=== PATIENT | male | born 1955 | race Caucasian/White ===

== ENCOUNTER 2023-07-25 08:52 | Outpatient (AMB) | payer MEDICARE, MEDICAID, SELFPAY ==
--- NOTE | 2023-07-25 08:56 | MHC.OFFWIV ---
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
[2023-07-25 09:03] VITALS: BP 160/80; PULSE 82; O2SAT 98; BMI 31.6
--- NOTE | 2023-07-25 09:05 | A.OFFPC_ITS ---
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 Intake Note: pt is here for establish care, hx of high bp readings Residence Hall Director Required: No Allergies No Known Allergies Allergy (Verified 07/25/23 09:21) Medication List - Last Reconciled 07/25/23 by MAXWELL Jacobo amlodipine 5 mg PO DAILY atorvastatin 40 mg PO DAILY lisinopril 40 mg PO DAILY metformin 1,000 mg PO BID pantoprazole 40 mg PO DAILY sildenafil 100 mg PO QAM sitagliptin phosphate (Januvia) 100 mg PO DAILY Tobacco use date assessed: 07/25/23 Fall risk assessment: No Falls in past year Last assessed Fall Risk: 07/25/23 Dental Screening Dental Screen Date: 07/25/23 Did you have a dental visit in the last 12 months?: Yes Did you have a dental problem in the last 6 months where you did not have access to dental care?: No Was dental information given to patient?: Patient has dentist HPI HPI Comments History of Present Illness Details Patient is a 68-year-old male in today to establish care. He has a past medical history significant for hypertension, hyperlipidemia, diabetes type 2, and GERD He has a surgical history of rotator cuff repair of the left sh oulder. He has not seen a provider in several years. He is due for a colonoscopy. He is up-to-date on his influenza and COVID booster this year. He is due for a podiatry appointment and for ophthalmic exam. Patient is in office A1c was 9.2. He is currently taking 1000 mg metformin b.i.d., and 100 mg of Januvia. He states he does not have a glucometer at home and has not been able to check his sugars. He admits needing to improve upon his diet. [facility] Medical History (Updated 07/25/23 @ 10:02 by MAXWELL Jacobo) Hyperlipidemia Hypertension Diabetes type 2, controlled Surgical History H/O rotator cuff surgery History of ankle surgery Family History Father Diabetes Social History Housing: Apartment Alcohol intake: former Patient Tobacco Use Status: Never used Tobacco e-Cigarette/Vaping Use: Never Used service: No Current occupational status: retired Current occupational exposures/hazards: No Cognitive needs: No Hearing needs: No Vision needs: Yes Questionnaire PHQ-9 Over the last 2 weeks, how often have you been bothered by any of the following problems? 1. Little interest or pleasure in doing things: not at all 2. Feeling down, depressed, or hopeless: not at all 3. Trouble falling or staying asleep, or sleeping too much: not at all 4. Feeling tired or having little energy: not at all 5. Poor appetite or overeating: not at all 6. Feeling bad about yourself - or that you are a failure or have let yourself or your family down: not at all 7. Trouble concentrating on things, such as reading the newspaper or watching television: not at all 8. Moving or speaking so slowly that other people could have noticed. Or the opposite - being so fidgety or restless that you have been moving around a lot more than usual: not at all 9. Thoughts that you would be better off or of hurting yourself in some way: not at all Total score: 0 Depression Screening Interpretation: Negative Depression Screening Done: Yes 01780 - PHQ-9 Billing: Yes Source: Developed by Drs. Jason Donovan, Cinthia Mclean, Lester Hunt and colleagues, with an educational phyllis from [employer]. Thrive Questionnaire Date Thrive assessed: 07/25/23 I am a: Patient What is your living situation today?: I have a steady place to live Within the past 12 months, did the food you bought not last and you didn't have the money to get more?: Never true Within the past 12 months, did you worry whether your food would run out before you got money to buy more?: Never true Do you have trouble paying for medicines?: No Do you have trouble getting transportation to medical appointments?: No Do you have trouble paying your heating and electricity bill?: No Do you have trouble taking care of your child, family member or friend?: No Do you have trouble with day-to-day activities such as bathing, preparing meals, shopping, managing finances, etc.?: No Are you currently unemployed and looking for a job?: No Are you interested in more education?: No Please select the resources that you would like help with: None Currently or been in a relationship where the following occur: no concerns reported ADITI-7 AMB Questionnaire ADITI-7 Date ADITI - 7 assessed: 07/25/23 Feeling nervous, anxious, or on edge: 0 = Not at all Not being able to stop or control worryin = Not at all Worrying too much about different things: 0 = Not at all Trouble relaxin = Not at all Being so restless that it is hard to sit still: 0 = Not at all Becoming easily annoyed or irritable: 0 = Not at all Feeling afraid as if something awful might happen: 0 = Not at all Total ADITI-7 score (0-4 normal; 5-9 mild; 10-14 moderate; 15-21 severe): 0 Source: Developed by Drs. Jason Donovan, Cinthia Mclean, Lester Hunt and colleagues, with an educational phyllis from [employer]. ADITI-7 Assessment Billing ADITI-7 Assessment Tool: ADITI-7 Assessment 92519 Review of Systems Const Details: Constitutional : No Weight loss, No Fever, No Chills, No Fatigue, No Malaise ENT/Mouth : No sore throat, No Rhinorrhea Eyes: No Eye Pain, No Swelling, No Redness Cardiovascular : No Chest Pain, No SOB, No Dyspnea on Exertion, No Orthopnea, No Edema, No Palpitations Respiratory : No Cough, No Sputum, No Wheezing Gastrointestinal : No Nausea, No Vomiting, No Diarrhea, No Constipation, No abdominal Pain, No Hematochezia, No Melena Genitourinary : No Dysuria, No Urinary Frequency, No Hematuria, Musculoskeletal : No joint pain, No Myalgias, No Joint Swelling Skin : No Skin Lesions, No rash Neuro : No Weakness, No Numbness, No Dizziness, No Headache Psych : No Anxiety/Panic, No Depression Heme/Lymph: No Bruising, No Bleeding,No Lymphadenopathy Endocrine : No Polyuria, No Polydipsia All other systems reviewed and are negative Physical exam (Primary Care) Vital Signs: Last Vital Signs Pulse 82 07/25/23 09:03 BP 160/80 H 07/25/23 09:03 Pulse Ox 98 07/25/23 09:03 Oxygen Delivery Method Room Air 07/25/23 09:03 Care Plan Goal for BP management: Patient has been instructed to take his blood pressure medication at home. He will have his amlodipine dosage increased to 10 mg daily. Next steps: Patient is to keep blood pressure log at home. BMI result Body Mass Index 31.6 Tobacco/Smoking Status: Tobacco use Status Patient Tobacco Use Status Never used Tobacco 07/25/23 09:10 Depression Screening Interpretation: Negative Currently or been in a relationship where the following occur: no concerns reported Const Other: Appearance: Alert.? Oriented X3.? No acute distress.? Head: Normocephalic, atraumatic, no step-offs or deformities Eyes: Pupils equal, round and reactive to light.? ENT: Pharynx normal.?TM intact bilaterally,pearly fuller. Neck: Normal inspection.? Neck supple.? CVS: Normal heart rate and rhythm.? Pulses normal.? Respiratory: No respiratory distress.? Breath sounds normal.? Abdomen: Soft and nontender.? Skin: Skin warm and dry.? Normal skin color.? Normal skin turgor.? Extremities: No lower extremity edema.? No calf ttp. 5/5 strength to bilateral upper and lower extremities Back: No CVA tenderness bilaterally Neuro: Oriented X 3.? No motor deficit.? No sensory deficit. Sensate to monofiliment. CN 2-12 intact Psych: No SI/HI. General: cooperative and no acute distress Results AMB Hemoglobin A1c AMB Hemoglobin A1c 9.2 % Last Edit by Jordi Kaba CMA on 07/25/23 09: 23 Results Reviewed Results Reviewed: Reviewed patient's A1c results. Will call patient with lab results. Assessment and Plan Assessment & Plan (1) Diabetes type 2, controlled: Comment: Patient will have referral to Podiatry and Ophthalmology. In office A1c was 9.2. He is currently taking a 1000 mg b.i.d. of metformin, and 100 mg Januvia. Will look to add 3rd agent, Jardiance 10 mg p.o. daily. Patient is agreeable to this plan. He will also meet with tobacco educator. Code(s): E11.9 - Type 2 diabetes mellitus without complications Qualifiers: Diabetes mellitus complication status: without complication Diabetes mellitus semiconductor packages platemaker insulin use: without intermediate use Qualified Code(s): E11.9 - Type 2 diabetes mellitus without complications (2) Hypertension: Comment: Patient has been instructed to keep blood pressure log at home. He has been educated to take his blood pressure at random times during the day. He has been educated to eat foods low in salt. He will have his amlodipine increased from 5 mg to 10 mg p.o. daily. Code(s): I10 - Essential (primary) hypertension Qualifiers: Hypertension type: primary hypertension Qualified Code(s): I10 - Essential (primary) hypertension Orders: Orders AMB Hemoglobin A1c Today Z13.9 - Encounter for screening, unspecified PSA,Total (Free>4and<10) Today E11.9 - Type 2 diabetes mellitus without complications UA CC w/rflx Micro + Cult Today E11.9 - Type 2 diabetes mellitus without complications TSH reflex Free T4 Today E11.9 - Type 2 diabetes mellitus without complications Complete Blood Count Auto Diff Today E11.9 - Type 2 diabetes mellitus without complications Comprehensive [place]. Panel Fast Today E11.9 - Type 2 diabetes mellitus without complications Lipid Panel Today E11.9 - Type 2 diabetes mellitus without complications Vitamin D 25-OH (D2 and D3) Today E11.9 - Type 2 diabetes mellitus without complications Microalbumin, Random (w Creat) Today E11.9 - Type 2 diabetes mellitus without complications Referrals Podiatry Referral E11.9 - Type 2 diabetes mellitus without complications Gastroenterology Referral Z12.11 - Encounter for screening for malignant neoplasm of colon Nurse Navigator Referral E11.9 - Type 2 diabetes mellitus without complications Medications: New empagliflozin (Jardiance) 10 mg PO DAILY 90 tabs 0RF amlodipine 10 mg PO DAILY 90 tabs 0RF blood-glucose meter As directed 1 ea 0RF Coding Level of Care Code New Pt Level 4 (39908) Diagnoses Controlled type 2 diabetes mellitus without complication, without long-term current use of insulin E11.9 Diabetes mellitus complication status: without complication Diabetes mellitus semiconductor packages platemaker insulin use: without semiconductor packages platemaker use Primary hypertension I10 Hypertension type: primary hypertension Additional Codes ADITI-7 Assessment Billing - ADITI-7 Assessment Tool: ADITI-7 Assessment 09414 ([id number]) Time Spent (min) 30
== END 2023-07-25 10:12 | disposition home or self-care (01) ==
LOC: HO.HMGC 08:52
PROVIDERS: Visit Provider Nurse Practitioner Primary Care
DX: E11.9 Type 2 diabetes mellitus without complications (principal)
CPT/HCPCS: 83036; 99204

== ENCOUNTER 2023-07-26 08:46 | Outpatient (REF) | payer MEDICARE, MEDICAID, SELFPAY ==
[2023-07-26 11:28] LABS: MANUAL DIFF FLAG NO
[2023-07-26 11:58] LABS: Basophils Absolute Auto 0.1 X10*3/uL (0.0-0.2); Basophils Percent Auto 0.8 % (0-2); Eosinophils Absolute Auto 0.3 X10*3/uL (0.0-0.4); Eosinophils Percent Auto 4.3 % (0-4); Hematocrit 44.6 % (42.0-52.0); Hemoglobin 15.5 g/dl (14.0-18.0); Imm Gran Abs Auto 0.02 X10*3/uL (0.00-0.03); Imm Gran Pct Auto 0.3 % (0.0-0.4); Lymphocytes Absolute Auto 2.2 X10*3/uL (1.2-4.9); Lymphocytes Percent Auto 27.6 % (20-40); Mean Corpuscular HGB Conc 34.8 g/dl (31.0-36.0); Mean Corpuscular Hemoglobin 31.5 pg (27.0-33.0); Mean Corpuscular Volume 90.7 fL (80.0-98.0); Mean Platelet Volume 9.8 fL (9.4-12.4); Monocytes Absolute Auto 0.6 X10*3/uL (0.1-1.2); Monocytes Percent Auto 7.3 % (2-11); Neutrophils Absolute Auto 4.8 x10*3/uL (2.0-8.3); Neutrophils Percent Auto 59.7 % (45-73); Platelet Count 270 X10*3/uL (160-400); Red Blood Count 4.92 X10*6/uL (4.60-5.80); Red Cell Distribution Width 12.4 % (11.0-16.0)
[2023-07-26 12:06] LABS: Appearance Urine Clear; Color Urine Yellow; Glucose Urine UA >=1000 mg/dL (Negative); Leukocyte Esterase Urine Negative (Negative); Nitrite Urine Negative (Negative); Specific Gravity - Urine >= 1.030 (1.005-1.025); UMIC TRIGGER UACC YES; Urine Blood Negative (Negative); Urine Ketones 15 mg/dL (Negative); Urine Protein Trace mg/dL (Neg-Trace)
[2023-07-26 12:11] LABS: Bacteria Urine None Seen (None Seen); Hyaline Casts Urine 0-2 /LPF (0-2); RBC Urine 0-2 /HPF (0-2); Squamous Epithelial Cell Urine 0-2 /HPF (0-2); WBC Urine 0-5 /HPF (0-5)
[2023-07-26 12:19] LABS: PSA,Total (Free>4and<10) 1.03 ng/mL (0.00-4.00)
[2023-07-26 12:32] LABS: Creatinine Urine 183.67 mg/dL; Microalbum/Creatinine Ratio Ur 12.5 ug/mg cr (<30)
[2023-07-26 12:33] LABS: Alanine Aminotransferase 22 U/L (0-40); Albumin Level 4.1 g/dL (3.5-5.0); Alkaline Phosphatase 73 U/L (39-117); Anion Gap 15 (12-20); Aspartate Amino Transferase 19 U/L (5-37); Bilirubin Total 0.7 mg/dL (0.0-1.0); Blood Urea Nitrogen 10 mg/dL (9-16); Calcium 9.1 mg/dL (8.4-10.2); Carbon Dioxide 26 mmol/L (22-29); Chloride 101 mmol/L (96-108); Cholesterol 108 mg/dL (<200); Estimated Glomerular Filt Rate > 60; Glucose Fasting 187 mg/dL (60-99); HDL Cholesterol 39 mg/dL (>40); LDL Cholesterol Calculated 51 mg/dL (<100); Potassium 3.9 mmol/L (3.3-5.1); Sodium 138 mmol/L (135-145); Total Protein 7.1 g/dL (6.5-8.0); Triglycerides 92 mg/dL (<150)
[2023-07-26 12:35] LABS: TSH reflex Free T4 0.75 uIU/mL (0.32-4.0)
[2023-07-30 15:18] LABS: Vitamin D 25-OH, D2 <4 ng/mL; Vitamin D 25-OH, D3 17 ng/mL; Vitamin D 25-OH, Total 17 ng/mL (30-100)
== END 2023-07-26 08:47 | disposition home or self-care (01) ==
LOC: HO.HMGCLDS 08:46
PROVIDERS: PCP Nurse Practitioner Primary Care; Visit Provider Nurse Practitioner Primary Care
DX: Z12.5 Encounter for screening for malignant neoplasm of prostate (principal); E11.9 Type 2 diabetes mellitus without complications
CPT/HCPCS: 36415; 80053; 80061; 81001; 81003; 82043; 82306; 82570; 84153; 84443; 85025

== ENCOUNTER 2023-10-24 08:55 | Outpatient (AMB) | payer MEDICARE, MEDICAID, SELFPAY ==
[2023-10-24 08:57] VITALS: BP 150/88; PULSE 98; O2SAT 97; BMI 30.6
--- NOTE | 2023-10-24 08:57 | MHC.PC.OV ---
Vital Signs 10/24/23 08:57 Height 5 ft 4 in Weight 178 lb 8 oz BMI 30.6 BP 150/88 H Blood Pressure Location Lt brachial Position Sitting Pulse 98 Pulse Source Pulse Oximeter Pulse Oximetry (%) 97 Oxygen Delivery Method Room Air Intake Visit Reasons: 3 Month follow up 9 am appt per JL Intake Note: Pt is here to follow up for DM Allergies No Known Allergies Allergy (Verified 10/24/23 09:15) Medication List - Last Reconciled 10/24/23 by MAXWELL Jacobo amlodipine 10 mg PO DAILY atorvastatin 40 mg PO DAILY blood sugar diagnostic (Rebel[employer]uch Ultra Test strips) Test blood sugar once a day blood-glucose meter (RebelMailuch Ultra2 Meter) As directed blood-glucose meter As directed empagliflozin (Jardiance) 10 mg PO DAILY lancets ([employer]Touch Delica Plus Lancet) Test blood sugar once a day lisinopril 40 mg PO DAILY metformin 1,000 mg PO BID pantoprazole 40 mg PO DAILY sildenafil 100 mg PO QAM sitagliptin phosphate (Januvia) 100 mg PO DAILY Tobacco use date assessed: 10/24/23 Fall risk assessment: No Falls in past year Last assessed Fall Risk: 10/24/23 Dental Screening Dental Screen Date: 10/24/23 Did you have a dental visit in the last 12 months?: No Did you have a dental problem in the last 6 months where you did not have access to dental care?: No Was dental information given to patient?: No HPI HPI Comments History of Present Illness Details Patient is a 68-year-old male here for diabetic follow-up. His A1c in office is 7.3, down from 9.2 from his appointment 3 months prior. Patient has colonoscopy referral in, he is waiting for his to complete hers and then will call to schedule his within next 3 months. Patient states that he is feeling much better since he started the Jardiance at his previous appointment. His sugars at home have been reading in the low 100s, he feels like he has more energy during the day. He also had counseling with community nurse navigation about diabetic diet, he has been adhering to that diet and has reduced intake of carbs and sugars. His blood pressure today is 150/88. He is currently taking 40 mg lisinopril in 10 mg amlodipine. Patient denies chest pain, dizziness, numbness, shortness of breath, nausea, vomiting, diarrhea. Patient will be referred to Nephrology. Will also order echocardiogram. [facility] Medical History Hyperlipidemia Hypertension Diabetes type 2, controlled Surgical History H/O rotator cuff surgery History of ankle surgery Family History Father Diabetes Social History Housing: Apartment Alcohol intake: former Patient Tobacco Use Status: Never used Tobacco e-Cigarette/Vaping Use: Never Used service: No Current occupational status: retired Current occupational exposures/hazards: No Cognitive needs: No Hearing needs: No Vision needs: Yes Questionnaire PHQ-9 Over the last 2 weeks, how often have you been bothered by any of the following problems? 1. Little interest or pleasure in doing things: not at all 2. Feeling down, depressed, or hopeless: not at all 3. Trouble falling or staying asleep, or sleeping too much: not at all 4. Feeling tired or having little energy: not at all 5. Poor appetite or overeating: not at all 6. Feeling bad about yourself - or that you are a failure or have let yourself or your family down: not at all 7. Trouble concentrating on things, such as reading the newspaper or watching television: not at all 8. Moving or speaking so slowly that other people could have noticed. Or the opposite - being so fidgety or restless that you have been moving around a lot more than usual: not at all 9. Thoughts that you would be better off or of hurting yourself in some way: not at all Total score: 0 Depression Screening Interpretation: Negative Depression Screening Done: Yes 88194 - PHQ-9 Billing: Yes Source: Developed by Drs. Jason Donovan, Cinthia Mclean, Lester Hunt and colleagues, with an educational phyllis from [employer]. Thrive Questionnaire Date Thrive assessed: 10/24/23 I am a: Patient What is your living situation today?: I have a steady place to live Within the past 12 months, did the food you bought not last and you didn't have the money to get more?: Sometimes True Within the past 12 months, did you worry whether your food would run out before you got money to buy more?: Often true Do you have trouble paying for medicines?: No Do you have trouble getting transportation to medical appointments?: No Do you have trouble paying your heating and electricity bill?: No Do you have trouble taking care of your child, family member or friend?: No Do you have trouble with day-to-day activities such as bathing, preparing meals, shopping, managing finances, etc.?: No Are you currently unemployed and looking for a job?: No Are you interested in more education?: No THRIVE Score: 2 AUDIT C Alcohol Use Questionnaire (AUDIT-C) 1. How often do you have a drink containing alcohol?: Never Total Score: 0 ADITI-7 AMB Questionnaire ADITI-7 Date ADITI - 7 assessed: 10/24/23 Feeling nervous, anxious, or on edge: 0 = Not at all Not being able to stop or control worryin = Not at all Worrying too much about different things: 0 = Not at all Trouble relaxin = Not at all Being so restless that it is hard to sit still: 0 = Not at all Becoming easily annoyed or irritable: 0 = Not at all Feeling afraid as if something awful might happen: 0 = Not at all Total ADITI-7 score (0-4 normal; 5-9 mild; 10-14 moderate; 15-21 severe): 0 Source: Developed by Drs. Jason Donovan, Cinthia Mclean, Lester Hunt and colleagues, with an educational phyllis from [employer]. ADITI-7 Assessment Billing ADITI-7 Assessment Tool: ADITI-7 Assessment 99019 Review of Systems Const Details: Constitutional : Admits some Weight loss, No Fever, No Chills, No Fatigue, No Malaise Eyes: No Eye Pain, No Swelling, No Redness, No vision changes. Cardiovascular : No Chest Pain, No SOB, No Dyspnea on Exertion, No Orthopnea, No Edema, No Palpitations Respiratory : No Cough, No Sputum, No Wheezing Gastrointestinal : No Nausea, No Vomiting, No Diarrhea, No Constipation, No abdominal Pain, No Hematochezia, No Melena Genitourinary : No Dysuria, No Urinary Frequency, No Hematuria, Musculoskeletal : No joint pain, No Myalgias, No Joint Swelling Skin : No Skin Lesions, No rash Neuro : No Weakness, No Numbness, No Dizziness, No Headache Psych : No Anxiety/Panic, No Depression Heme/Lymph: No Bruising, No Bleeding,No Lymphadenopathy Endocrine : Admits some Polyuria, No Polydipsia All other systems reviewed and are negative Physical exam (Primary Care) Care Plan Goal for BP management: Patient will get referral to Nephrology, will order echocardiogram BMI result Body Mass Index 30.6 Tobacco/Smoking Status: Tobacco use Status Tobacco use date assessed 07/25/23 07/25/23 09:11 Patient Tobacco Use Status Never used Tobacco 07/25/23 09:11 e-Cigarette/Vaping Use Never Used 07/25/23 09:11 Depression Screening Interpretation: Negative Thrive Assessment: Date of Thrive Assessment Date Thrive assessed 07/25/23 08/03/23 09:36 Const Other: Appearance: Alert.? Oriented X3.? No acute distress.? Head: Normocephalic, atraumatic, Neck: Normal inspection.? Neck supple.? CVS: Normal heart rate and rhythm.? Pulses normal.? Respiratory: No respiratory distress.? Breath sounds normal.? Neuro: Oriented X 3.? No motor deficit.? No sensory deficit. CN 2-12 intact Results AMB Hemoglobin A1c AMB Hemoglobin A1c 7.3 % Last Edit by Margo Peter CMA on 10/24/23 09:19 Results Reviewed Results Reviewed: Sodium 138 135-145 mmol/L Potassium 3.9 3.3-5.1 mmol/L CL 101 96-108 mmol/L CO2 26 22-29 mmol/L Gap 15 12-20 BUN 10 9-16 mg/dL Creat 0.78 0.5-1.4 mg/dL EGFR > 60 NOTE: For -[place] individuals, multiply the result by 1.210. Chronic Kidney Disease: Estimated GFR < 60 mL/min/1.73m2 Severe Kidney Disease: Estimated GFR < 15 mL/min/1.73m2 FBS 187 H 60-99 mg/dL A fasting glucose of 126 mg/dl or greater on more than one occasion is considered diagnostic of diabetes. CA 9.1 8.4-10.2 mg/dL Total Bili 0.7 0.0-1.0 mg/dL AST (GOT) 19 5-37 U/L ALT (GPT) 22 0-40 U/L Protein, Total 7.1 6.5-8.0 g/dL Alb 4.1 3.5-5.0 g/dL Triglyceride 92 <150 mg/dL Desirable Triglyceride: less than 150 mg/dL Borderline High Triglyceride 150-199 mg/dL High Triglyceride: 200-499 mg/dL Very High Triglyceride: greater than or equal to 5OO mg/dL Cholesterol 108 <200 mg/dL Desirable Cholesterol: less than 200 mg/dL Borderline High Cholesterol: 200-239 mg/dL High Cholesterol: greater than 239 mg/dL LDL Calculated 51 <100 mg/dL Desirable LDL: less than 100 mg/dL Near Optimal/Above Optimal LDL: 110-129 mg/dL Borderline High LDL: 130-159 mg/dL High LDL: 160-189 mg/dL Very High LDL: greater than or equal to 190 mg/dL HDL 39 L >40 mg/dL Desirable HDL: greater than 40 mg/dL Note: This HDL assay may give artificially low results in patients with liver disease. Alk Phos 73 39-117 U/L TSH 0.75 0.32-4.0 uIU/mL Assessment and Plan Assessment & Plan (1) Diabetes type 2, controlled: Comment: Patient is doing much improved with blood sugar levels at home. A1c today 7.3 down from 9.23 months prior. Patient should continue with his diabetic diet, and medication regimen. Patient has been instructed to make ophthalmology appointment in Podiatry appointment. Code(s): E11.9 - Type 2 diabetes mellitus without complications Qualifiers: Diabetes mellitus intermodal customer service insulin use: without retirement use Diabetes mellitus complication status: without complication Qualified Code(s): E11.9 - Type 2 diabetes mellitus without complications (2) Hypertension: Comment: Patient's remains hypertensive even after amlodipine titrated from 5 mg to 10 mg. Patient is also taking 40 mg lisinopril. Will refer to Nephrology. Will order echocardiogram. Code(s): I10 - Essential (primary) hypertension Qualifiers: Hypertension type: primary hypertension Qualified Code(s): I10 - Essential (primary) hypertension (3) Hyperlipidemia: Comment: Patient's hyperlipidemia is in control. Code(s): E78.5 - Hyperlipidemia, unspecified Qualifiers: Hyperlipidemia type: unspecified Qualified Code(s): E78.5 - Hyperlipidemia, unspecified Plan: Take your medications as prescribed. If you were prescribed antibiotics today, it is important that you take your medication to their entirety, do not skip any doses, do not finish them early. Follow-up with your primary care provider this week. Return to the emergency department with new or worsening symptoms. Such as fevers, chills, chest pain, shortness of breath, nausea, vomiting, dizziness, headache, vision changes, lethargy In case of emergency call 911 Plan Follow-up in 3 months. Orders: Orders AMB Hemoglobin A1c Today E11.9 - Type 2 diabetes mellitus without complications CA echo transthoracic complete Today I10 - Essential (primary) hypertension Coding Level of Care Code Est Pt Level 4 (49461) Diagnoses Controlled type 2 diabetes mellitus without complication, without long-term current use of insulin E11.9 Diabetes mellitus intermodal customer service insulin use: without intermodal customer service use Diabetes mellitus complication status: without complication Primary hypertension I10 Hypertension type: primary hypertension Hyperlipidemia, unspecified hyperlipidemia type E78.5 Hyperlipidemia type: unspecified Additional Codes ADITI-7 Assessment Billing - ADITI-7 Assessment Tool: ADITI-7 Assessment [id number] ([id number]) Time Spent (min) 33
== END 2023-10-24 12:02 | disposition home or self-care (01) ==
PROVIDERS: Visit Provider Nurse Practitioner Primary Care
DX: E11.9 Type 2 diabetes mellitus without complications (principal)
CPT/HCPCS: 83036; 99214

== ENCOUNTER 2023-11-23 12:57 | Outpatient (AMB) | payer MEDICARE, MEDICAID, SELFPAY ==
--- NOTE | 2023-11-23 13:02 | MHC.PC.OV ---
Vital Signs 11/23/23 13:04 Height 5 ft 4 in Weight 180 lb BMI 30.9 BP 140/78 H Blood Pressure Location Rt brachial Position Sitting Pulse 91 Pulse Source Pulse Oximeter Pulse Oximetry (%) 98 Oxygen Delivery Method Room Air Intake Visit Reasons: left rotator cuff pain Intake Note: pt is here for left rotator cuff pain pt had surgery years ago Allergies No Known Allergies Allergy (Verified 11/23/23 13:06) Tobacco use date assessed: 11/23/23 Fall risk assessment: No Falls in past year Last assessed Fall Risk: 11/23/23 Dental Screening Dental Screen Date: 11/23/23 Did you have a dental visit in the last 12 months?: No Did you have a dental problem in the last 6 months where you did not have access to dental care?: No Was dental information given to patient?: No HPI HPI Comments History of Present Illness Details Patient is a 68-year-old male in today for a sick visit. Patient states that over the past several weeks he has developed left shoulder pain. Patient does have history of left rotator cuff repair. Patient states that the pain improves with movement. Most painful position is moving shoulder overhead. Patient denies tingling or numbness. Has utilize Tylenol and hot compress with minimal relief. Patient has crepitus and cracking with articulation of limb. States that the pain is making him feel irritable. Will obtain left shoulder x-ray. Will refer to orthopedics. Patient states he will not return to facility that performed the operation on his shoulder 13 years prior. Patient has also been taking blood pressure measurements at home and states that they have been much improved from previous visits. States that his blood pressure measurements are usually lower than they are today, he attributes blood pressure pressure readings to high degree of pain. Patient will continue take blood pressure measurements at home. Patient does have echocardiogram and 4 days. [facility] Medical History Hyperlipidemia Hypertension Diabetes type 2, controlled Surgical History H/O rotator cuff surgery History of ankle surgery Family History Father Diabetes Social History Housing: Apartment Alcohol intake: former Patient Tobacco Use Status: Never used Tobacco e-Cigarette/Vaping Use: Never Used service: No Current occupational status: retired Current occupational exposures/hazards: No Cognitive needs: No Hearing needs: No Vision needs: Yes Questionnaire Thrive Questionnaire Date Thrive assessed: 10/24/23 ADITI-7 AMB Questionnaire ADITI-7 Date ADITI - 7 assessed: 10/24/23 Source: Developed by Drs. Jason Donovan, Cinthia Mclean, Lester Hunt and colleagues, with an educational phyllis from [employer]. Review of Systems Const All systems reviewed & are unremarkable except as noted in HPI and below Denies headache(s) ENT Denies dizziness and Denies headache(s) Musc Reports arthralgias (Left shoulder), Denies numbness and Denies tingling Neuro Denies dizziness, Denies headache(s), Denies numbness and Denies tingling Physical exam (Primary Care) Vital Signs: Last Vital Signs Pulse 91 11/23/23 13:04 BP 140/78 H 11/23/23 13:04 Pulse Ox 98 11/23/23 13:04 Oxygen Delivery Method Room Air 11/23/23 13:04 Care Plan Goal for BP management: Patient will continue take blood pressure measurements at home. BMI result Body Mass Index 30.9 Tobacco/Smoking Status: Tobacco use Status Tobacco use date assessed 11/23/23 11/23/23 13:09 Patient Tobacco Use Status Never used Tobacco 11/23/23 13:09 e-Cigarette/Vaping Use Never Used 11/23/23 13:09 Thrive Assessment: Date of Thrive Assessment Date Thrive assessed 10/24/23 11/23/23 13:09 Const Other: Appearance: Alert.? Oriented X3.? No acute distress.? Head: Normocephalic, atraumatic. Neck: Normal inspection.? Neck supple. CVS: Normal heart rate and rhythm.? Pulses normal.? Extremities: + crepitus of left shoulder. Strength 4/5. No obvious deformity. No point tenderness. Reduce ROM to overhead movement and forward flexion. Back: + left trapezius tenderness. Neuro: Oriented X 3.? No motor deficit.? No sensory deficit. CN 2-12 intact Assessment and Plan Assessment & Plan (1) Left shoulder pain: Comment: Will obtain left shoulder X-ray. Will refer to orthopedics. Patient unwilling to return to facility that performed original rotator cuff repair. Will prescribe salonpas and diclofenac gel. will refer to orthopedics. Code(s): M25.512 - Pain in left shoulder Qualifiers: Chronicity: unspecified Qualified Code(s): M25.512 - Pain in left shoulder Plan: Take your medications as prescribed. If you were prescribed antibiotics today, it is important that you take your medication to their entirety, do not skip any doses, do not finish them early. Follow-up with your primary care provider this week. Return to the emergency department with new or worsening symptoms. Such as fevers, chills, chest pain, shortness of breath, nausea, vomiting, dizziness, headache, vision changes, lethargy In case of emergency call 911 Plan Patient has follow-up in 2 months Orders: Orders XR shoulder LT min 2V Today M25.512 - Pain in left shoulder Referrals Orthopedics Referral M75.82 - Other shoulder lesions, left shoulder Medications: New diclofenac sodium 1% (Arthritis Pain (diclofenac)) apply to single elbow, wrist or hand; for hand includes palm/fingers/back of hand 2 grams topical QID 100 grams 0RF lidocaine 5% leave on most painful area for up to 12 hrs 1 patch topical DAILY 30 ea 0RF Coding Level of Care Code Est Pt Level 3 (36683) Diagnoses Left shoulder pain, unspecified chronicity M25.512 Chronicity: unspecified Time Spent (min) 21
[2023-11-23 13:04] VITALS: BP 140/78; PULSE 91; O2SAT 98; BMI 30.9
== END 2023-11-23 16:40 | disposition home or self-care (01) ==
PROVIDERS: PCP Nurse Practitioner Primary Care; Visit Provider Nurse Practitioner Primary Care
DX: M25.512 Pain in left shoulder (principal)
CPT/HCPCS: 99213

== ENCOUNTER 2023-11-23 13:27 | Outpatient (REF) | payer MEDICARE, MEDICAID, SELFPAY ==
--- NOTE | ~2023-11-23 | XR_ITS ---
EXAMINATION: XR SHOULDER, LEFT CLINICAL INFORMATION: Pain in left shoulder COMPARISON: None available. TECHNIQUE: AP neutral and scapular Y of the left shoulder. FINDINGS: The bones and soft tissues are normal. No fracture or dislocation. There is mild degenerative change of acromioclavicular joint. There is mild degenerative changes glenohumeral joint. Surgical anchor is seen in the humeral head suggestive prior surgery for rotator cuff disease. Nonspecific 0.8 cm cyst is seen in the proximal shaft of the humerus. There is narrowing of the subacromial space which may be related to impingement syndrome. No abnormal soft tissue calcifications. XR/XR shoulder LT min 2V IMPRESSION: 1. Mild degenerative change of the acromioclavicular and glenohumeral joints. 2. Narrowing of the subacromial space which may be related to impingement syndrome. 3. Prior surgery for rotator cuff disease.
== END 2023-11-23 13:28 | disposition home or self-care (01) ==
LOC: HO.HMGCX 13:27
PROVIDERS: PCP Nurse Practitioner Primary Care; Visit Provider Nurse Practitioner Primary Care
DX: M25.512 Pain in left shoulder (principal)
CPT/HCPCS: 73030

== ENCOUNTER → 2023-11-27 09:44 | Outpatient (REF) | payer MEDICARE, MEDICAID, SELFPAY ==
--- NOTE | 2023-11-27 09:47 | CA_ITS ---
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 The calculated ejection fraction is 62% by biplane method. - No obvious valvular pathology seen on this study. Findings Left Ventricle Normal left ventricular cavity size. There is mildly increased left ventricular wall thickness. The left ventricular systolic function is normal. The calculated ejection fraction is 62% by biplane method. There is no evidence of regional wall motion abnormalities. Diastolic function is normal for age. LV peak GLS -18.3%. Right Ventricle Normal right ventricular cavity size and systolic function. Atria Both atria are normal in size. Aortic Valve There is a normal trileaflet aortic valve. There is no aortic valve stenosis. There is trace (trivial) aortic valve regurgitation. Mitral Valve There is mild anterior mitral leaflet thickening. There is mild mitral annular calcification. There is no mitral valve regurgitation. There is no mitral valve stenosis. Pulmonic Valve The pulmonic valve is likely normal. Tricuspid Valve Normal tricuspid valve structure. There is trace tricuspid valve regurgitation. There is no evidence of pulmonary hypertension. Great Vessels The asc aorta and aortic arch are normal in size. Venous The inferior vena cava is normal in size and collapses greater than 50% with inspiration. Pericardium/Pleural There is no evidence of pericardial effusion. Prior Study Comparison No prior study available for comparison. Recommendations, Care & Conclusions No obvious valvular pathology seen on this study. Measurements 2D Linear Measurements IVSd: 1.25 0.6-0.9/0.6-1.0 cm LVIDd: 4.80 3.9-5.3/4.2-5.9 cm LVIDd Index: 2.58 2.4-3.2/2.2-3.1 cm/m2 LVIDs: 3.07 2.0-3.6 cm LVPWd: 1.12 0.7-1.1 cm LA Diam: 3.50 2.7-3.8/3.0-4.0 cm LAIDs Index: 1.88 1.5-2.3 cm/m2 LV Mass: 268.33 67-162/88-224 g LV Mass Index: 144.26 43-95/49-115 g/m2 LVOT Diam: 2.20 3.0+(-)1.3 cm 2D Systolic Function EF 4C: 64.90 >55% EF 2C: 59.10 >55% EF BiP: 62.10 >55% Mitral Valve MV Pk E: 0.64 MV PK A: 0.67 MV Decel Time: 165.00 E/A: 1.00 E'Lateral: 7.94 E'Medial: 6.42 E/E' Med: 9.90 E/E' Lat: 8.00 PHT: 48.00 MVA PHT: 4.58 Decel Coffee: 3.86 Aortic Valve AoV Pk Pablo: 1.69 AoV Mn Pablo: 1.13 AoV VTI: 0.34 AoV Pk Grad: 11.00 Aov Mn Grad: 6.00 JARED Cont.VTI: 2.63 LVOT LVOT Pk Pablo: 0.99 LVOT Mn Pablo: 0.66 LVOT VTI: 0.24 LVOT Pk Grad: 4.00 LVOT Mn Grad: 2.00 LVOT Diam: 2.20 LVOT Area: 3.80 Diastolic Function MV Pk E: 0.64 MV Pk A: 0.67 E/A: 1.00 E'Medial: 6.42 E/E' Med: 9.90 E' Laterial: 7.94 E/E' Lat: 8.00 Right Ventricle TAPSE (mm): 23.00 TVS' Pablo: 13.90 Tricuspid Valve TR Pk Pablo: 2.10 TR Pk Grad: 18.00 RA Press: 3.00 RVSP: 21.00 Great Vessels Aorta Sinus of Valsalva: 3.62 2.0-3.5 cm Ao Asc: 3.60 2.1-3.4 cm Ao Arch: 2.80 Updated in Other Vendor System with Status of Final Ck Victor MD electronically signed on 11/27/2023 12:19:36 PM with status of Final
== END ==
LOC: HO.CARD 09:44
PROVIDERS: PCP Nurse Practitioner Primary Care; Visit Provider Nurse Practitioner Primary Care
DX: I10 Essential (primary) hypertension (principal)
CPT/HCPCS: 93306; 93356

== ENCOUNTER → 2023-11-27 09:47 | Outpatient (BNV) | payer MEDICARE, MEDICAID, SELFPAY | PROVIDERS: PCP Nurse Practitioner Primary Care; Visit Provider Internal Medicine | DX: I34.81 Nonrheumatic mitral (valve) annulus calcification (principal); I10 Essential (primary) hypertension | CPT/HCPCS: 93306; 93356 ==

== ENCOUNTER 2023-12-27 08:54 | Outpatient (AMB) | payer MEDICARE, MEDICAID, SELFPAY ==
[2023-12-27 08:57] VITALS: BMI 30.9
--- NOTE | 2023-12-27 08:57 | A.OFFVIS_ITS ---
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 The patient states that he 1st underwent left shoulder surgery in 2007 while living in [place]. Underwent a 2nd left shoulder surgery at [facility] in 2012. Patient states that he has had difficulty lifting his left hand above shoulder height over the last few years. He has had injections in the past which gave him minimal relief. He has also tried anti-inflammatory medicines, tramadol and Tylenol. He has done physical therapy exercises which aggravated his pain. Allergies No Known Allergies Allergy (Verified 12/27/23 09:05) [facility] Medical History Hyperlipidemia Hypertension Diabetes type 2, controlled Surgical History H/O rotator cuff surgery History of ankle surgery Family History Father Diabetes Social History Housing: Apartment Alcohol intake: former Patient Tobacco Use Status: Never used Tobacco e-Cigarette/Vaping Use: Never Used service: No Current occupational status: retired Current occupational exposures/hazards: No Cognitive needs: No Hearing needs: No Vision needs: Yes Physical Exam Vital Signs: BMI result Body Mass Index 30.9 Const Other: Well-nourished well-developed very friendly male awake alert and oriented x3 in no acute distress Extrem Other: Bilateral upper extremity examination shows good capillary refill, no skin lesions noted, normal sensation light touch Left shoulder examination shows decreased active and passive range motion when compared to his right shoulder, 3/5 strength with supraspinatus testing, positive impingement signs, no instability Results Reviewed Results Reviewed: X-rays of the patient's left shoulder show 1 suture anchor in the proximal humerus with no signs of loosening, a type 2 acromion, severe acromioclavicular joint narrowing, a bony cyst within the left proximal humerus of unclear etiology Assessment & Plan Assessment & Plan (1) Impingement syndrome of left shoulder: Code(s): M75.42 - Impingement syndrome of left shoulder Category: Medical Plan Mr. Ansari presents with progressively worsening left shoulder pain and weakness most likely due to a recurrent full-thickness rotator cuff tear. He also has a bony cyst within his left proximal humerus of unclear etiology. Thus, I will send the patient for an MRI of his left shoulder to further evaluate the status of his rotator cuff tendons. I will also send him for an MRI of his left humerus with IV contrast for further evaluation of the bony cyst. I will see the patient back once the imaging studies are completed. He will continue with his range of motion exercises in the meantime. Feel free to call me at any time should questions regarding his orthopedic management arise. I spent 22 minutes in reviewing the patient's records and imaging studies, seeing the patient and documenting in the medical record. Orders: Orders MR humerus LT wo/w con Today M85.612 - Other cyst of bone, left shoulder MR shoulder LT wo con Today M67.919 - Unspecified disorder of synovium and tendon, unspecified shoulder Medications: New tramadol 50 mg PO Q8H 1 month PRN 90 tabs 0RF pain Coding Level of Care Code New Pt Level 3 (09763) Diagnoses Impingement syndrome of left shoulder M75.42
== END 2023-12-27 09:17 | disposition home or self-care (01) ==
PROVIDERS: PCP Nurse Practitioner Primary Care; Visit Provider Orthopaedic Surgery
DX: M75.42 Impingement syndrome of left shoulder (principal)
CPT/HCPCS: 99203

== ENCOUNTER → 2023-12-27 08:54 | Outpatient (BNVA) | payer MEDICARE, MEDICAID, SELFPAY | PROVIDERS: PCP Nurse Practitioner Primary Care; Visit Provider Orthopaedic Surgery | DX: M75.42 Impingement syndrome of left shoulder (principal) | CPT/HCPCS: 99202 ==

== ENCOUNTER 2024-02-04 08:51 | Outpatient (AMB) | payer MEDICARE, MEDICAID, SELFPAY ==
--- NOTE | 2024-02-04 08:53 | MHC.PC.OV ---
Vital Signs 02/04/24 08:54 Height 5 ft 4 in Weight 176 lb BMI 30.2 BP 104/68 Blood Pressure Location Rt brachial Position Sitting Pulse 96 Pulse Source Pulse Oximeter Pulse Oximetry (%) 99 Oxygen Delivery Method Room Air Intake Visit Reasons: 3 mo f/u DM Intake Note: pt is here for 3 mo f/u for diabetes. Allergies No Known Allergies Allergy (Verified 02/04/24 09:13) Medication List - Last Reconciled 02/04/24 by MAXWELL Jacobo amlodipine 10 mg PO DAILY atorvastatin 40 mg PO DAILY blood sugar diagnostic ([employer] Ultra Test strips) USE TO TEST BLOOD SUGAR ONCE A DAY blood-glucose meter ([employer] Ultra2 Meter) As directed blood-glucose meter As directed diclofenac sodium 1% (Arthritis Pain (diclofenac)) 2 grams topical QID empagliflozin (Jardiance) 25 mg PO DAILY lancets ([employer] Delica Plus Lancet) Test blood sugar once a day lisinopril 40 mg PO DAILY metformin 1,000 mg PO BID pantoprazole 40 mg PO DAILY sildenafil 100 mg PO QAM sitagliptin phosphate (Januvia) 100 mg PO DAILY tramadol 50 mg PO DAILY PRN tramadol 50 mg PO Q8H PRN 1 month Tobacco use date assessed: 02/04/24 Dental Screening Dental Screen Date: 11/23/23 HPI HPI Comments History of Present Illness Details Patient is a 68-year-old male in today for diabetic follow-up. He denies symptoms of polyuria, polydipsia. Patient is up-to-date with microalbumin next evaluation due in July 2024. Patient is due for eye exam, he will be making appointment for this. Patient has declined Podiatry. Patient is declining colonoscopy until after he resolved ongoing left shoulder issue with Orthopedics. He reports taking blood sugar values 3 times a day values ranging between the 120s and 140. Patient's A1c in office is 7.4. He will have his Jardiance titrated up to rest p.o. daily. [facility] Medical History Hyperlipidemia Hypertension Diabetes type 2, controlled Surgical History H/O rotator cuff surgery History of ankle surgery Family History Father Diabetes Social History Housing: Apartment Alcohol intake: former Patient Tobacco Use Status: Never used Tobacco e-Cigarette/Vaping Use: Never Used service: No Current occupational status: retired Current occupational exposures/hazards: No Cognitive needs: No Hearing needs: No Vision needs: Yes Questionnaire Thrive Questionnaire Date Thrive assessed: 10/24/23 AUDIT C Alcohol Use Questionnaire (AUDIT-C) 1. How often do you have a drink containing alcohol?: Never Total Score: 0 ADITI-7 AMB Questionnaire ADITI-7 Date ADITI - 7 assessed: 10/24/23 Source: Developed by Drs. Jason Donovan, Cinthia Mclean, Lester Hunt and colleagues, with an educational phyllis from [employer]. Review of Systems Const All systems reviewed & are unremarkable except as noted in HPI and below Physical exam (Primary Care) Vital Signs: Last Vital Signs Pulse 96 02/04/24 08:54 BP 104/68 02/04/24 08:54 Pulse Ox 99 02/04/24 08:54 Oxygen Delivery Method Room Air 02/04/24 08:54 Care Plan Goal for BP management: Patient reports not eating before appointment. Values at home are closer to 120/80. Next steps: Continue to take BP measurements at home. BMI result Body Mass Index 30.2 Tobacco/Smoking Status: Tobacco use Status Tobacco use date assessed 02/04/24 02/04/24 09:01 Patient Tobacco Use Status Never used Tobacco 02/04/24 09:01 e-Cigarette/Vaping Use Never Used 02/04/24 09:01 Thrive Assessment: Date of Thrive Assessment Date Thrive assessed 10/24/23 02/04/24 09:01 Const Other: Appearance: Alert.? Oriented X3.? No acute distress.? Head: Normocephalic. Eyes: Pupils equal, round and reactive to light.? Neck: Normal inspection.? Neck supple.? CVS: Normal heart rate and rhythm.? Pulses normal.? Respiratory: No respiratory distress.? Breath sounds normal.? Skin: Skin warm and dry.? Normal skin color.? Normal skin turgor.? Extremities: No lower extremity edema.? Neuro: Oriented X 3.? No motor deficit.? No sensory deficit. CN 2-12 intact Results AMB Hemoglobin A1c AMB Hemoglobin A1c 7.4 % Last Edit by Doyle Landin CMA on 02/04/24 09:22 Results Reviewed Results Reviewed: Laboratory Last Values Hgb A1c (Clinic) 7.4 % (4.0-6.0) H 02/04/24 09:21 Assessment and Plan Assessment & Plan (1) Diabetes type 2, controlled: Comment: Continue to work on diet and exercise. Patient will have Jardiance increased from 10 mg p.o. daily to 25 mg p.o. daily in addition to Januvia and metformin. 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 Orders: Orders AMB Hemoglobin A1c Today E11.9 - Type 2 diabetes mellitus without complications Medications: New empagliflozin (Jardiance) 25 mg PO DAILY 90 tabs 0RF Refilled blood sugar diagnostic ([employer] Ultra Test strips) USE TO TEST BLOOD SUGAR ONCE A DAY 300 strips 3RF E11.9 - Type 2 diabetes mellitus without complications Discontinued empagliflozin (Jardiance) Discontinued Reason: Doctor's Order 10 mg PO DAILY 90 tabs 0RF Coding Level of Care Code Est Pt Level 3 (43968) Diagnoses Controlled type 2 diabetes mellitus without complication, without long-term current use of insulin E11.9 Diabetes mellitus nursing home insulin use: without nursing home use Diabetes mellitus complication status: without complication Time Spent (min) 24
[2024-02-04 08:54] VITALS: BP 104/68; PULSE 96; O2SAT 99; BMI 30.2
== END 2024-02-04 09:27 | disposition home or self-care (01) ==
PROVIDERS: PCP Nurse Practitioner Primary Care; Visit Provider Nurse Practitioner Primary Care
DX: E11.9 Type 2 diabetes mellitus without complications (principal)
CPT/HCPCS: 83036; 99213

== ENCOUNTER 2024-02-10 09:21 | Outpatient (REF) | payer MEDICARE, MEDICAID, SELFPAY ==
--- NOTE | ~2024-02-10 | MR_ITS ---
EXAMINATION: MR SHOULDER WITHOUT CONTRAST, LEFT CLINICAL INFORMATION: Left shoulder pain. Increasing pain. Surgery in 2007 and 2012. Rotator cuff tendon repairs. COMPARISON: Left shoulder radiographs dated 11/23/2023. TECHNIQUE: MRI of the shoulder without contrast was performed on a high-field scanner. FINDINGS: ROTATOR CUFF: Orthopedic anchors within the humeral head consistent with prior rotator cuff tendon repair. There is a complete, recurrent supraspinatus tendon tear measuring approximately 3.1 x 4.2 cm (AP x ML). The torn tendon fibers are retracted to the glenohumeral articulation. Tearing extends into the anterior leading edge of the infraspinatus tendon. Moderate subscapularis tendinosis with distal articular surface partial tearing measuring up to 2.6 cm in ML dimension. Mild supraspinatus and minimal infraspinatus muscle atrophy. BICEPS: Proximal long head biceps tenodesis. CORACOACROMIAL ARCH: The undersurface of the acromion is attenuated, consistent with acromioplasty. Distal clavicular resection. LABRUM/CAPSULE: No displaced labral tear. Intact inferior joint capsule. GLENOHUMERAL JOINT/MARROW: Mild articular cartilage signal heterogeneity with inferior humeral head thinning. Small marginal osteophytes. Trace joint effusion. MR/MR shoulder LT wo con IMPRESSION: 1. Complete, recurrent supraspinatus tendon tear with retraction of the torn tendon fibers to the glenohumeral articulation. Tearing extends into the anterior leading edge of the infraspinatus tendon. Moderate subscapularis tendinosis with distal articular surface partial tearing. Mild supraspinatus and minimal infraspinatus muscle atrophy. 2. Proximal long head biceps tenodesis. 3. Acromioplasty and distal clavicular resection. 4. Mild glenohumeral osteoarthritis and trace joint effusion.
== END 2024-02-10 09:22 | disposition home or self-care (01) ==
LOC: HO.MRI 09:21
PROVIDERS: PCP Nurse Practitioner Primary Care; Visit Provider Orthopaedic Surgery
DX: M67.912 Unspecified disorder of synovium and tendon, left shoulder (principal)
CPT/HCPCS: 73221

== ENCOUNTER 2024-02-20 09:24 | Outpatient (AMB) | payer MEDICARE, MEDICAID, SELFPAY ==
--- NOTE | 2024-02-20 09:26 | A.OFFVIS_ITS ---
Intake Visit Reasons: O/V Left shoulder MRI review. Intake Note: Jose is a 68 year old male who presents with Left shoulder pain and weakness. The patient states that he first underwent left shoulder surgery in 2007 while living in [place]. Underwent a 2nd left shoulder surgery at [facility] in 2012. Patient states that he has had difficulty lifting his left hand above shoulder height over the last few years. He has had injections in the past which gave him minimal relief. He has also tried anti-inflammatory medicines, tramadol and Tylenol. He has done physical therapy exercises which aggravated his pain. Allergies No Known Allergies Allergy (Verified 02/20/24 09:27) Medication List - Last Reconciled 02/20/24 by Tesfaye Chavez MD amlodipine 10 mg PO DAILY atorvastatin 40 mg PO DAILY blood sugar diagnostic (StoreDot Ultra Test strips) USE TO TEST BLOOD SUGAR ONCE A DAY blood-glucose meter (StoreDot Ultra2 Meter) As directed blood-glucose meter As directed diclofenac sodium 1% (Arthritis Pain (diclofenac)) 2 grams topical QID empagliflozin (Jardiance) 25 mg PO DAILY lancets (StoreDot Delica Plus Lancet) Test blood sugar once a day lancing device with lancets (StoreDot Delica Plus Lancing Device kit) As directed lisinopril 40 mg PO DAILY metformin 1,000 mg PO BID pantoprazole 40 mg PO DAILY sildenafil 100 mg PO QAM sitagliptin phosphate (Januvia) 100 mg PO DAILY tramadol 50 mg PO DAILY PRN tramadol 50 mg PO Q8H PRN 1 month PFSH Medical History Hyperlipidemia Hypertension Diabetes type 2, controlled Surgical History H/O rotator cuff surgery History of ankle surgery Family History Father Diabetes Social History Housing: Apartment Alcohol intake: former Patient Tobacco Use Status: Never used Tobacco e-Cigarette/Vaping Use: Never Used service: No Current occupational status: retired Current occupational exposures/hazards: No Cognitive needs: No Hearing needs: No Vision needs: Yes Physical Exam Const Other: Well-nourished well-developed very friendly male awake alert and oriented x3 in no acute distress Extrem Other: Bilateral upper extremity examination shows good capillary refill, no skin lesions noted, normal sensation light touch Left shoulder examination shows slightly decreased range of motion when compared to his right shoulder, 3/5 strength with supraspinatus testing, positive impingement signs, no instability Results Reviewed Results Reviewed: MRI of the patient's left shoulder shows a recurrent large tear of the supraspinatus tendon with retraction almost to the glenoid lip, mild articular cartilage signal heterogeneity with inferior humeral head thinning, small marginal osteophytes consistent with mild glenohumeral joint osteoarthritis Assessment & Plan Assessment & Plan (1) Left shoulder pain: Code(s): M25.512 - Pain in left shoulder Category: Medical Qualifiers: Chronicity: unspecified Qualified Code(s): M25.512 - Pain in left shoulder Plan Mr. Ansari presents with chronic left shoulder pain and weakness due to a large recurrent rotator cuff tear as well as early glenohumeral joint osteoarthritis. I had a lengthy discussion with the patient regarding the treatment options. Based on the size of his tear I am not sure that a 3rd rotator cuff repair is feasible. The patient may be a candidate for a graft procedure if so. The patient may indeed need reverse total shoulder replacement surgery. Thus, I will have him evaluated by my partner, Dr. Long. The patient will follow-up as instructed. He will continue with his range of motion exercises in the meantime. Feel free to call me at any time should questions regarding orthopedic management arise. I spent 21 minutes in reviewing the patient's records and imaging studies, seeing the patient and documenting in the medical record. Coding Level of Care Code Est Pt Level 3 (74910) Diagnoses Left shoulder pain, unspecified chronicity M25.512 Chronicity: unspecified
== END 2024-02-20 09:54 | disposition home or self-care (01) ==
PROVIDERS: PCP Nurse Practitioner Primary Care; Visit Provider Orthopaedic Surgery
DX: M75.102 Unspecified rotator cuff tear or rupture of left shoulder, not specified as traumatic (principal); M19.012 Primary osteoarthritis, left shoulder
CPT/HCPCS: 99213

== ENCOUNTER → 2024-02-20 09:24 | Outpatient (BNVA) | payer MEDICARE, MEDICAID, SELFPAY | PROVIDERS: PCP Nurse Practitioner Primary Care; Visit Provider Orthopaedic Surgery | DX: M75.102 Unspecified rotator cuff tear or rupture of left shoulder, not specified as traumatic (principal); M19.012 Primary osteoarthritis, left shoulder | CPT/HCPCS: 99212 ==

== ENCOUNTER 2024-03-20 10:56 | Outpatient (AMB) | payer MEDICARE, MEDICAID, SELFPAY ==
--- NOTE | 2024-03-20 11:42 | A.OFFVIS_ITS ---
Intake Visit Reasons: O/V Left shoulder, possible replacement Intake Note: Jose is a 68 year old male who presents with Left shoulder pain and weakness. The patient states that he first underwent left shoulder surgery in 2007 while living in [place]. Underwent a 2nd left shoulder surgery at [facility] in 2012. Patient states that he has had difficulty lifting his left hand above shoulder height over the last few years. He was referred by Dr. Chavez to discuss reverse TSA. Allergies No Known Allergies Allergy (Verified 02/20/24 09:27) HPI HPI O/V Left shoulder, possible replacement: Details: Jose is a 68 year old male who presents with Left shoulder pain and weakness. The patient states that he first underwent left shoulder surgery in 2007 while living in [place]. Underwent a 2nd left shoulder surgery at [facility] in 2012. Patient states that he has had difficulty lifting his left hand above shoulder height over the last few years. He was referred by Dr. Chavez to discuss reverse TSA. He states the pain has been present now really for the last few months although off and on for years. He describes pain while sleeping and pain in his neck especially. He has not tried physical therapy or injections recently. [facility] Medical History (Updated 03/20/24 @ 12:27 by Jeremías Long MD) Hyperlipidemia Hypertension Diabetes type 2, controlled Surgical History (Updated 03/20/24 @ 12:27 by Jeremías Long MD) H/O rotator cuff surgery History of ankle surgery Family History Father Diabetes Social History Housing: Apartment Alcohol intake: former Patient Tobacco Use Status: Never used Tobacco e-Cigarette/Vaping Use: Never Used service: No Current occupational status: retired Current occupational exposures/hazards: No Cognitive needs: No Hearing needs: No Vision needs: Yes Physical Exam Extrem Other: 4+ out of 5 empty can weakness 40/90/130/L5 Periscapular and trapezius muscle tightness Results Reviewed Results Reviewed: I personally reviewed the MR images. Supraspinatus full-thickness retracted tear with evidence of prior surgery. Assessment & Plan Assessment & Plan (1) H/O rotator cuff surgery: Comment: bilateral, twice Code(s): Z98.890 - Other specified postprocedural states Category: Surgical Plan: This is a 69-year-old with a history of a rotator cuff tear on the left with ongoing pain. I do think he would benefit from surgery at some point but I think an injection and attempted physical therapy would be the most appropriate next step. I discussed this with him. He understands. (2) Rotator cuff tear, left: Code(s): M75.102 - Unspecified rotator cuff tear or rupture of left shoulder, not specified as traumatic Category: Medical Plan: (3) Diabetes type 2, controlled: Comment: Continue to work on diet and exercise. Patient will have Jardiance increased from 10 mg p.o. daily to 25 mg p.o. daily in addition to Januvia and metformin. Continue take blood sugar measurements at home Patient has been educated on side effects of these medications Code(s): E11.9 - Type 2 diabetes mellitus without complications Category: Medical Qualifiers: Diabetes mellitus mcc insulin use: without keno terminal operator use Diabetes mellitus complication status: without complication Qualified Code(s): E11.9 - Type 2 diabetes mellitus without complications Plan: I explained the hyperglycemic effects of steroids. Coding Level of Care Code Est Pt Level 4 (44929) Diagnoses H/O rotator cuff surgery Z98.890 Rotator cuff tear, left M75.102 Controlled type 2 diabetes mellitus without complication, without long-term current use of insulin E11.9 Diabetes mellitus keno terminal operator insulin use: without keno terminal operator use Diabetes mellitus complication status: without complication
== END 2024-03-20 12:17 | disposition home or self-care (01) ==
PROVIDERS: PCP Nurse Practitioner Primary Care; Visit Provider Orthopaedic Surgery
DX: M75.102 Unspecified rotator cuff tear or rupture of left shoulder, not specified as traumatic (principal); E11.9 Type 2 diabetes mellitus without complications
CPT/HCPCS: 20610; 99214

== ENCOUNTER → 2024-03-20 10:56 | Outpatient (BNVA) | payer MEDICARE, MEDICAID, SELFPAY | PROVIDERS: PCP Nurse Practitioner Primary Care; Visit Provider Orthopaedic Surgery | DX: M75.102 Unspecified rotator cuff tear or rupture of left shoulder, not specified as traumatic (principal); E11.9 Type 2 diabetes mellitus without complications; Z98.890 Other specified postprocedural states | CPT/HCPCS: 20610; 99212; J0665; J1100 ==

== ENCOUNTER 2024-04-16 08:52 | Outpatient (AMB) | payer MEDICARE, MEDICAID, SELFPAY ==
[2024-04-16 09:16] VITALS: BP 106/64; PULSE 96; TEMP 36.4; O2SAT 98; BMI 30.2
--- NOTE | 2024-04-16 09:16 | MHC.OFFWIV ---
Intake Vital Signs 04/16/24 09:16 Height 5 ft 4 in Weight 176 lb BMI 30.2 BP 106/64 Blood Pressure Location Rt brachial Position Sitting Pulse 96 Pulse Source Pulse Oximeter Temp 97.6 F Temp Source Oral Pulse Oximetry (%) 98 Oxygen Delivery Method Room Air Intake Visit Reasons: EP Back pain Intake Note: pt c/o lower back pain. Started Sunday Patient Tobacco Use Status: Never used Tobacco Allergies No Known Allergies Allergy (Verified 04/16/24 09:22) Do you need a note to return to daycare/school/sports/work: No HPI HPI Comments History of Present Illness Details Patient is a 69-year-old male complaining of 5 days of right-sided low back pain. He states he did not do any unusual movements or try to last picker anything heavy or move anything prior to the pain, he was at a picnic and when he woke up the next morning with this pain. He states it does not radiate down the back of his leg. He states it is more of a dull aching pain that is worse when he tries to stand up. He has been using a heating pad without much relief. He denies any loss control of his bladder or bowels [facility] Medical History (Updated 04/16/24 @ 09:37 by Taya Sandoval PA-C) Hyperlipidemia Hypertension Diabetes type 2, controlled Surgical History (Updated 03/20/24 @ 12:27 by Jeremías Long MD) H/O rotator cuff surgery History of ankle surgery Family History Father Diabetes Social History Housing: Apartment Alcohol intake: former Patient Tobacco Use Status: Never used Tobacco e-Cigarette/Vaping Use: Never Used service: No Current occupational status: retired Current occupational exposures/hazards: No Cognitive needs: No Hearing needs: No Vision needs: Yes Review of Systems Const All systems reviewed & are unremarkable except as noted in HPI and below Physical Exam Vital Signs: Last Vital Signs Temp 97.6 F 04/16/24 09:16 Pulse 96 04/16/24 09:16 BP 106/64 04/16/24 09:16 Pulse Ox 98 04/16/24 09:16 Oxygen Delivery Method Room Air 04/16/24 09:16 BMI result Body Mass Index 30.2 Const General: cooperative, healthy appearing and comfortable Orientation/consciousness: patient oriented x3 HEENT Head: Yes normal to inspection and Yes normocephalic General nose exam: Normal external nose present Face and sinus: Yes normal facial exam Eyes General: appearance normal, both eyes and all related structures Resp Effort & Inspection: normal respiratory effort and able to speak in complete sentences Back/Spine/Pelvis Cervical Spine: cervical ROM normal and No Cervical spine tenderness Thoracic/Lumbar Spine: thoracic and lumbar spine normal to inspection, thoraco-lumbar ROM limited, thoraco-lumbar spasm on the right in the lower lumbar, No thoracic spinal tenderness and No lumbar spinal tenderness Neuro General: patient oriented x3 Assessment & Plan Assessment & Plan (1) Muscle spasm: Code(s): M62.838 - Other muscle spasm Plan: Palpable muscle spasm on the right low back, recommended pushing on it to break up the neuromuscular junction, also use heating pad and sent a few muscle relaxers. Plan See above Medications: New cyclobenzaprine do not take with Tramadol 5 mg PO TID PRN 7 tabs 0RF muscle spasm Coding Level of Care Code Est Pt Level 3 (64416) Diagnoses Muscle spasm M62.838
== END 2024-04-16 10:20 | disposition home or self-care (01) ==
PROVIDERS: PCP Nurse Practitioner Primary Care; Visit Provider Physician Assistant
DX: M62.838 Other muscle spasm (principal)
CPT/HCPCS: 99213

== ENCOUNTER 2024-04-25 11:00 | Outpatient (RCR) | payer MEDICARE, MEDICAID, SELFPAY ==
--- NOTE | 2024-04-22 13:48 | MHC.PT.EP ---
[facility] [place] Office [place] Office [place] Office [address] [phone] F: [phone] F: [phone] F: [phone] F: [phone] Physical Therapy Plan of Care Date of Evaluation: 04/22/24 Date of Surgery: Diagnosis: chronic rotator cuff tear. Assessment: Patient is a 69 year old R handed male who presents with s/s consistent with L shoulder pain, L rotator cuff tear. He is not currently working but does like to stay active. Patient past medical history includes 2 rotator cuff surgeries and HTN. Current impairments include pain, posture, ROM, strength, activity tolerance and functional mobility. Functional limitations include decreased ability to sleep, reach, turn head, lift, carry, push and pull. Patient is motivated with good rehab potential. Skilled PT will address impairments and functional limitations in order to achieve goals. Frequency and Duration: The patient will be seen 2x/week for 5 weeks Short Term Goals: I with HEP - 2 weeks TTP in c-spine absent - 3 weeks C-spine AROM rotation L to 45 - 3 weeks Halfway Goals: AROM flexion to 140, ER to 55 pain free - 5 weeks Strength 4+/5 grossly in L shoulder - 5 weeks SPADI 20/130 - 5 weeks Treatment Plan: Modalities to reduce pain, spasms and effusion. Manual therapy to restore motion and function. Therapeutic exercise to improve strength and flexibility. Neuromuscular re-education for posture and balance. Therapeutic activities to return to functional activities of daily living. Electronically signed by: Armando Huang, PT Please sign and return to therapist. Thank you for your referral.
--- NOTE | 2024-09-18 13:57 | MHC.PT.DC ---
[facility] [place] Office [place] Office [place] Office [address] [phone] F: [phone] F: [phone] F: [phone] F: [phone] Physical Therapy Discharge Report Diagnosis: chronic rotator cuff tear. Date of Surgery: Date of Evaluation: 04/22/24 Date of Discharge: 05/01/24 Treatments to Date: 2 Cancellations to Date: No Shows to Date: Discharge Status: Patient Elected to Stop Discharge Summary: 04/25/24: pt progressed with postural intervention and ROM. s/s unchanged from eval. follow up on Sunday with ortho. Patient is a 69 year old R handed male who presents with s/s consistent with L shoulder pain, L rotator cuff tear. He is not currently working but does like to stay active. Patient past medical history includes 2 rotator cuff surgeries and HTN. Current impairments include pain, posture, ROM, strength, activity tolerance and functional mobility. Functional limitations include decreased ability to sleep, reach, turn head, lift, carry, push and pull. Patient is motivated with good rehab potential. Skilled PT will address impairments and functional limitations in order to achieve goals. Electronically signed by: Armando Huang, PT Please sign and return to therapist. Thank you for your referral.
== END 2024-09-18 13:57 | disposition home or self-care (01) ==
LOC: HO.PTCHIC 11:00
PROVIDERS: PCP Nurse Practitioner Primary Care; Visit Provider Orthopaedic Surgery
DX: M75.102 Unspecified rotator cuff tear or rupture of left shoulder, not specified as traumatic (principal)
CPT/HCPCS: 97110; 97140; 97162

== ENCOUNTER 2024-04-28 10:10 | Outpatient (AMB) | payer MEDICARE, MEDICAID, SELFPAY ==
--- NOTE | 2024-04-28 10:26 | A.OFFVIS_ITS ---
Vital Signs 04/28/24 10:31 Height 5 ft 4 in Weight 176 lb BMI 30.2 Intake Visit Reasons: O/V Left shoulder, possible replacement Allergies No Known Allergies Allergy (Verified 05/06/24 13:54) HPI HPI O/V Left shoulder, possible replacement: Details: Jose is a 69 year old left hand dominant male who presents today for a follow up visit for his left shoulder pain, last injection 03/20/24. Patient reports his last injection gave him a day of relief. He states that physical therapy made his pain worse and would like to discuss surgery. He has had 2 prior left rotator cuff surgeries and an MRI was obtained a few months ago and he was seen by my partner Dr. Molina and referred here for consideration possible shoulder arthroplasty. Feels limited in his activities. He can comfortably get his hand to the back of his head so not only is he bothered by his lack of ability to do recreational activities but also is lack of ability to engage in basic daily functional activities. He is also left-hand dominant. [facility] Medical History (Updated 05/06/24 @ 14:35 by Jeremías Long MD) Hyperlipidemia Hypertension Diabetes type 2, controlled Surgical History H/O rotator cuff surgery History of ankle surgery Family History Father Diabetes Social History Housing: Apartment Alcohol intake: former Patient Tobacco Use Status: Never used Tobacco e-Cigarette/Vaping Use: Never Used service: No Current occupational status: retired Current occupation: left hand dominant Current occupational exposures/hazards: No Cognitive needs: No Hearing needs: No Vision needs: Yes Physical Exam Vital Signs: BMI result Body Mass Index 30.2 Extrem Other: 4- out of 5 empty can on the left with external rotation to 25 degrees and active abduction to 40 degrees when controlling for scapular motion. Negative lift-off Results Reviewed Results Reviewed: MRI reveals a complete recurrent supraspinatus tendon tear with retraction to the glenohumeral articulation Assessment & Plan Assessment & Plan (1) Rotator cuff arthropathy of left shoulder: Code(s): M12.812 - Other specific arthropathies, not elsewhere classified, left shoulder Category: Medical Plan: This is a 69-year-old gentleman with well-controlled diabetes hypertension and hypercholesterolemia who has a irreparable left rotator cuff tear and subsequent rotator cuff arthropathy. He is left-hand dominant and active and would like to be able to engage in daily activities without discomfort. He feels severely limited. Given his MRI findings and his physical exam and on further discussion with him I recommend shoulder arthroplasty. I discussed with him the risks, benefits and alternatives including, but not limited to the risk of infection, dislocation, need for further surgery, fracture, loosening. I also discussed the medical risks such as blood clots and pneumonia. He expressed understanding. After this discussion he expressed interest in proceeding forward. I introduced him to my nurse navigator and we will proceed forward accordingly. Coding Level of Care Code Est Pt Level 4 (66361) Diagnoses Rotator cuff arthropathy of left shoulder M12.812
[2024-04-28 10:31] VITALS: BMI 30.2
== END 2024-04-28 10:52 | disposition home or self-care (01) ==
PROVIDERS: PCP Nurse Practitioner Primary Care; Visit Provider Orthopaedic Surgery
DX: M12.812 Other specific arthropathies, not elsewhere classified, left shoulder (principal)
CPT/HCPCS: 99214

== ENCOUNTER → 2024-04-28 10:10 | Outpatient (BNVA) | payer MEDICARE, MEDICAID, SELFPAY | PROVIDERS: PCP Nurse Practitioner Primary Care; Visit Provider Orthopaedic Surgery | DX: M12.812 Other specific arthropathies, not elsewhere classified, left shoulder (principal) | CPT/HCPCS: 99212 ==

== ENCOUNTER 2024-05-06 13:49 | Outpatient (AMB) | payer MEDICARE, MEDICAID, SELFPAY ==
[2024-05-06 13:53] VITALS: BP 140/76; PULSE 97; O2SAT 94; BMI 30.6
--- NOTE | 2024-05-06 13:53 | MHC.PC.OV ---
Vital Signs 05/06/24 13:53 05/06/24 14:35 Height 5 ft 4 in Weight 178 lb BMI 30.6 BP 140/76 H 136/76 Blood Pressure Location Rt brachial Lt brachial Position Sitting Sitting Pulse 97 Pulse Source Pulse Oximeter Pulse Oximetry (%) 94 Oxygen Delivery Method Room Air Intake Visit Reasons: transfer from [facility] Intake Note: pt is here for establishing care with new pcp, transfer from [facility] Combine Driver Required: No Accompanied by: Self / Same As Patient Allergies No Known Allergies Allergy (Verified 05/06/24 14:49) Medication List - Last Reconciled 05/06/24 by TED Baca amlodipine 10 mg PO DAILY atorvastatin 40 mg PO DAILY blood sugar diagnostic ([employer] Ultra Test strips) USE TO TEST BLOOD SUGAR ONCE A DAY blood-glucose meter ([employer] Ultra2 Meter) As directed blood-glucose meter As directed diclofenac sodium 1% (Arthritis Pain (diclofenac)) 2 grams topical QID empagliflozin (Jardiance) 25 mg PO DAILY lancets ([employer] Delica Plus Lancet) Test blood sugar once a day lancing device with lancets ([employer] Delica Plus Lancing Device kit) As directed lisinopril 40 mg PO DAILY metformin 1,000 mg PO BID pantoprazole 40 mg PO DAILY sildenafil 100 mg PO QAM PRN sitagliptin phosphate (Januvia) 100 mg PO DAILY tramadol 50 mg PO Q8H PRN 1 month Tobacco use date assessed: 02/04/24 Fall risk assessment: No Falls in past year Last assessed Fall Risk: 05/06/24 Dental Screening Dental Screen Date: 11/23/23 HPI transfer from [facility] HPI Details Pt is a diabetic, on an ALEXANDRA and a statin. A1C in office today is 7.4. Microalbumin is up to date. Denies polyuria, polydipsia, and neuropathy. Pt denies any signs and symptoms of hypoglycemia and does know how to correct it. Due for eye exam, will refer. Will stop januvia and start mounjaro 2.5mg. Pt is undergoing a left shoulder replacement in July. [facility] Medical History Hyperlipidemia Hypertension Diabetes type 2, controlled Surgical History H/O rotator cuff surgery History of ankle surgery Family History Father Diabetes Social History Housing: Apartment Alcohol intake: former Patient Tobacco Use Status: Never used Tobacco e-Cigarette/Vaping Use: Never Used service: No Current occupational status: retired Current occupation: left hand dominant Current occupational exposures/hazards: No Cognitive needs: No Hearing needs: No Vision needs: Yes Questionnaire Thrive Questionnaire Date Thrive assessed: 10/24/23 I am a: Patient What is your living situation today?: I choose not to answer this question Within the past 12 months, did the food you bought not last and you didn't have the money to get more?: I choose not to answer this question Within the past 12 months, did you worry whether your food would run out before you got money to buy more?: I choose not to answer this question Do you have trouble paying for medicines?: I choose not to answer this question Do you have trouble getting transportation to medical appointments?: No Do you have trouble paying your heating and electricity bill?: I choose not to answer this question Do you have trouble taking care of your child, family member or friend?: I choose not to answer this question Do you have trouble with day-to-day activities such as bathing, preparing meals, shopping, managing finances, etc.?: I choose not to answer this question Are you interested in more education?: I choose not to answer this question Please select the resources that you would like help with: None Currently or been in a relationship where the following occur: I choose not to answer THRIVE Score: 0 AUDIT C Alcohol Use Questionnaire (AUDIT-C) 1. How often do you have a drink containing alcohol?: Never 3. How often do you have six or more drinks on one occasion?: Never Total Score: 0 Score Reviewed/Action Taken: Yes ADITI-7 AMB Questionnaire ADITI-7 Date ADITI - 7 assessed: 05/06/24 Feeling nervous, anxious, or on edge: 0 = Not at all Not being able to stop or control worryin = Not at all Worrying too much about different things: 0 = Not at all Trouble relaxin = Not at all Being so restless that it is hard to sit still: 0 = Not at all Becoming easily annoyed or irritable: 3 = Nearly every day Feeling afraid as if something awful might happen: 0 = Not at all Total ADITI-7 score (0-4 normal; 5-9 mild; 10-14 moderate; 15-21 severe): 3 Source: Developed by Drs. Jason Donovan, Cinthia Mclean, Lester Hunt and colleagues, with an educational phyllis from [employer]. ADITI-7 Assessment Billing ADITI-7 Assessment Tool: ADITI-7 Assessment 44622 Review of Systems Const Reports as per HPI Physical exam (Primary Care) Vital Signs: Last Vital Signs Pulse 97 05/06/24 13:53 BP 140/76 H 05/06/24 13:53 Pulse Ox 94 05/06/24 13:53 Oxygen Delivery Method Room Air 05/06/24 13:53 BMI result Body Mass Index 30.6 Tobacco/Smoking Status: Tobacco use Status Tobacco use date assessed 02/04/24 05/06/24 13:55 Patient Tobacco Use Status Never used Tobacco 05/06/24 13:55 e-Cigarette/Vaping Use Never Used 05/06/24 13:55 Thrive Assessment: Date of Thrive Assessment Date Thrive assessed 10/24/23 05/06/24 13:55 Currently or been in a relationship where the following occur: I choose not to answer Const General: cooperative Orientation/consciousness: patient oriented x3 Resp Effort & Inspection: normal respiratory effort Auscultation: clear to auscultation bilaterally Cardio Rate: regular rate Rhythm: regular rhythm Heart sounds: S1 normal heart sound present and S2 normal heart sound present Neuro General: patient oriented x3 Extrem Other: bilat feet: + sensation with use of monofilament, feet intact Psych Appearance: grossly normal Mental Status: mental status grossly normal Speech and movement: Normal speech and movement present Affect: normal affect Attitude: cooperative Thought process: Normal thought process present Thought content: Normal thought content present Insight: Good insight present (Psych) Judgement: Good judgement present (Psych) Results AMB Hemoglobin A1c AMB Hemoglobin A1c 7.4 % Last Edit by Jordi Kaba CMA on 05/06/24 14:47 Immunizations pneumoc 20-rachana conj-dip cr(PF) 0.5 mL IM syringe Performing Provider: TED Baca Performing Location: [facility] Administered by: Jordi Kaba CMA on 05/06/24 14:35 Dose Route Admin Location Dispensed Lot Number Expiration Date NDC Stroboscope Operator 0.5 mL IM Left Deltoid 0.5 mL [id number] 01/30/25 6424-2025-24 WYETH/PFIZER VIS Given Date VIS Provided VIS Publication Date 05/06/24 Single Vaccine 21 Eligibility Eligibility Date Funding Source Not [facility] Eligible 05/06/24 Private Assessment and Plan Assessment & Plan (1) Diabetes type 2, controlled: Code(s): E11.9 - Type 2 diabetes mellitus without complications Qualifiers: Diabetes mellitus complication status: without complication Diabetes mellitus terminal manager insulin use: without [place] [facility] use Qualified Code(s): E11.9 - Type 2 diabetes mellitus without complications Plan: Stopping januvia and starting mounjaro Plan The patient agreed to the use of a medical reimbursement specialist for this encounter. Scribed for TED Jimenez by Angie Christensen medical reimbursement specialist, on 05/06/2024 at 14:15 EST. Orders: Orders Complete Blood Count Auto Diff Today E11.9 - Type 2 diabetes mellitus without complications Comprehensive [place]. Panel Fast Today E11.9 - Type 2 diabetes mellitus without complications TSH reflex Free T4 Today E11.9 - Type 2 diabetes mellitus without complications Lipid Panel Today E11.9 - Type 2 diabetes mellitus without complications Pneumococcal 20 Immunization Today Z23 - Encounter for immunization AMB Hemoglobin A1c Today Z13.9 - Encounter for screening, unspecified UA CC w/rflx Micro + Cult Today E11.9 - Type 2 diabetes mellitus without complications Microalbumin, Random (w Creat) Today E11.9 - Type 2 diabetes mellitus without complications Referrals Ophthalmology Referral E11.9 - Type 2 diabetes mellitus without complications Medications: New tirzepatide (Mounjaro) for 4 weeks 2.5 mg (0.5 mL) subcut QWEEK 2 mL 0RF Coding Level of Care Code New Pt Level 3 (56553) Diagnoses Controlled type 2 diabetes mellitus without complication, without long-term current use of insulin E11.9 Diabetes mellitus complication status: without complication Diabetes mellitus terminal manager insulin use: without [place] [facility] use Additional Codes ADITI-7 Assessment Billing - ADITI-7 Assessment Tool: ADITI-7 Assessment 49265 ([id number])
[2024-05-06 14:35] VITALS: BP 136/76
== END 2024-05-06 14:37 | disposition home or self-care (01) ==
PROVIDERS: PCP Nurse Practitioner Primary Care; Visit Provider Nurse Practitioner Family
DX: Z23 Encounter for immunization (principal); Z13.9 Encounter for screening, unspecified; E11.9 Type 2 diabetes mellitus without complications

== ENCOUNTER → 2024-05-06 13:49 | Outpatient (BNVA) | payer MEDICARE, MEDICAID, SELFPAY | PROVIDERS: PCP Nurse Practitioner Primary Care; Visit Provider Nurse Practitioner Family | DX: Z23 Encounter for immunization (principal); E11.9 Type 2 diabetes mellitus without complications; I10 Essential (primary) hypertension; E78.5 Hyperlipidemia, unspecified; Z79.84 Long term (current) use of oral hypoglycemic drugs | CPT/HCPCS: 83036; 90471; 90677; 96127; 99202 ==

== ENCOUNTER 2024-06-11 09:18 | Outpatient (REF) | payer MEDICARE, MEDICAID, SELFPAY ==
--- NOTE | ~2024-06-11 | CT_ITS ---
EXAMINATION: CT SCAN LEFT SHOULDER WITHOUT CONTRAST CLINICAL INFORMATION: Total shoulder planning. Tournier protocol. COMPARISON: MRI left shoulder January 2024. TECHNIQUE: CT scan left shoulder performed with reconstruction imaging performed at the acquisition workstation. Tournier protocol performed. FINDINGS: Glenohumeral Joint: There is osteoarthritis with marginal osteophytes present. The humeral head does not appear posteriorly subluxed. There is no glenoid erosion. Glenoid vault depth 2.2 cm. Glenoid version +1 degree. Humeral head slightly subluxed cephalad likely related to the rotator cuff tear. Additional findings of postsurgical changes related to prior rotator cuff surgery with suture anchors in place in the proximal humerus. Additional postsurgical changes related to biceps tenodesis in the proximal humerus. Coracoacromial Arch: Arthrosis of the acromioclavicular joint and probable distal clavicle resection. The partially visualized left chest unremarkable. CT/CT shoulder LT wo IV con IMPRESSION: 1. CT Tournier protocol performed for preoperative planning purposes. 2. Osteoarthritis of the glenohumeral joint. 3. Postsurgical changes related to prior rotator cuff surgery and biceps tenodesis. Electronically signed by: Gavino Flaherty MD 07/01/2024 07:55 AM ARRON
== END 2024-06-11 09:19 | disposition home or self-care (01) ==
LOC: HO.CT 09:18
PROVIDERS: PCP Nurse Practitioner Family; Visit Provider Physician Assistant
DX: M12.812 Other specific arthropathies, not elsewhere classified, left shoulder (principal)
CPT/HCPCS: 73200

== ENCOUNTER 2024-06-12 13:45 | Outpatient (AMB) | payer MEDICARE, MEDICAID, SELFPAY ==
[2024-06-12 13:57] VITALS: BP 118/72; PULSE 106; O2SAT 97; BMI 28.9
--- NOTE | 2024-06-12 13:57 | A.OFFPC_ITS ---
Vital Signs 06/12/24 13:57 Height 5 ft 4 in Weight 168 lb 4 oz BMI 28.9 BP 118/72 Blood Pressure Location Rt brachial Position Sitting Pulse 106 H Pulse Source Pulse Oximeter Pulse Oximetry (%) 97 Intake Visit Reasons: Pre-op TSA 08/05/24 Dr Long Intake Note: pt is here for pre op TSA from dr long on 08/05/24. EKG done in office today Allergies No Known Allergies Allergy (Verified 06/12/24 13:58) Medication List - Last Reconciled 06/12/24 by Laurie Maxwell, SILVESTRE amlodipine 10 mg PO DAILY atorvastatin 40 mg PO DAILY blood sugar diagnostic ([employer] Ultra Test strips) USE TO TEST BLOOD SUGAR ONCE A DAY blood-glucose meter ([employer] Ultra2 Meter) As directed blood-glucose meter As directed diclofenac sodium 1% (Arthritis Pain (diclofenac)) 2 grams topical QID empagliflozin (Jardiance) 25 mg PO DAILY lancets ([employer] Delica Plus Lancet) Test blood sugar once a day lancing device with lancets ([employer] Delica Plus Lancing Device kit) As directed lisinopril 40 mg PO DAILY metformin 1,000 mg PO BID pantoprazole 40 mg PO DAILY sildenafil 100 mg PO QAM PRN tirzepatide 5 mg (0.5 mL) subcut QWEEK tramadol 50 mg PO Q8H PRN 1 month Tobacco use date assessed: 02/04/24 Fall risk assessment: No Falls in past year Last assessed Fall Risk: 06/12/24 Dental Screening Dental Screen Date: 11/23/23 HPI HPI Comments History of Present Illness Details 69 y/o male patient who presents to the clinic for Pre-Op clearance examination. He is patient of Alexandre Mccabe. PMHX Significant for T2DM, HTN, and Hyperlipidemia. SURGERY: Total Shoulder Arthroplasty. SURGERY DATE: 08/05/24 SURGEON: Dr. Long [place] [facility] [place]S NEEDED: CBC, CMP, A1C, ECG. ROS: Denies CP, SOB, Dizziness, Headaches, Nausea, vomiting, chills or fevers. MEDICATIONS: Amlodipine 10 mg, Atorvastatin 40 mg, Jardiance 25 mg, Lisinopril 40 mg, Metformin 1000 mg BID, Pantoprazole 40 mg, Sildenafil 100 mg, and Tramadol 50 mg PFSH Medical History Hyperlipidemia Hypertension Diabetes type 2, controlled Surgical History H/O rotator cuff surgery History of ankle surgery Family History Father Diabetes Social History Housing: Apartment Alcohol intake: former Patient Tobacco Use Status: Never used Tobacco e-Cigarette/Vaping Use: Never Used service: No Current occupational status: retired Current occupation: left hand dominant Current occupational exposures/hazards: No Cognitive needs: No Hearing needs: No Vision needs: Yes Questionnaire Thrive Questionnaire Date Thrive assessed: 05/06/24 I am a: Patient What is your living situation today?: I choose not to answer this question Within the past 12 months, did the food you bought not last and you didn't have the money to get more?: I choose not to answer this question Within the past 12 months, did you worry whether your food would run out before you got money to buy more?: I choose not to answer this question Do you have trouble paying for medicines?: I choose not to answer this question Do you have trouble getting transportation to medical appointments?: No Do you have trouble paying your heating and electricity bill?: I choose not to answer this question Do you have trouble taking care of your child, family member or friend?: I choose not to answer this question Do you have trouble with day-to-day activities such as bathing, preparing meals, shopping, managing finances, etc.?: I choose not to answer this question Are you currently unemployed and looking for a job?: I choose not to answer this question Are you interested in more education?: I choose not to answer this question Please select the resources that you would like help with: None Currently or been in a relationship where the following occur: I choose not to answer THRIVE Score: 0 ADITI-7 AMB Questionnaire ADITI-7 Date ADITI - 7 assessed: 05/06/24 Source: Developed by Drs. Jason Donovan, Cinthia Mclean, Lester Hunt and colleagues, with an educational phyllis from [employer]. Review of Systems Const All systems reviewed & are unremarkable except as noted in HPI and below Physical exam (Primary Care) Vital Signs: Last Vital Signs Pulse 106 H 06/12/24 13:57 BP 118/72 06/12/24 13:57 Pulse Ox 97 06/12/24 13:57 BMI result Body Mass Index 28.9 Tobacco/Smoking Status: Tobacco use Status Tobacco use date assessed 02/04/24 06/12/24 13:58 Patient Tobacco Use Status Never used Tobacco 06/12/24 13:58 e-Cigarette/Vaping Use Never Used 06/12/24 13:58 Thrive Assessment: Date of Thrive Assessment Date Thrive assessed 05/06/24 06/12/24 13:58 Currently or been in a relationship where the following occur: I choose not to answer Const General: cooperative and no acute distress Orientation/consciousness: patient oriented x3 HENMT Head: Yes normocephalic Ears: external ears normal and TM's normal bilaterally General nose exam: Normal external nose present and Normal nasal mucous membranes and turbinates present Face and sinus: Yes sinuses nontender Mouth: moist mucous membranes Throat: Yes posterior oropharynx normal Eyes Pupils: Equal, round and reactive pupils present Resp Effort & Inspection: normal respiratory effort Auscultation: clear to auscultation bilaterally Cardio Heart sounds: S1 normal heart sound present and S2 normal heart sound present GI Inspection: Yes normal to inspection and Yes obesity Palpation (GI): Soft to palpation, not firm, nontender and no guarding Auscultation: normal bowel sounds Rectal Exam - Male: Yes deferred General: Yes no CVA tenderness Back/Spine/Pelvis Back: no CVA tenderness Skin General skin exam: no rashes or lesions noted Neuro General: patient oriented x3, gait normal and moves all extremities Cranial nerves: Yes Equal, round and reactive pupils present Motor exam (neuro): 5/5 motor strength present throughout Extrem Other: limited ROM on Shoulders due to pain. Psych Speech and movement: Normal speech and movement present Coding Level of Care Code Est Pt Level 4 (20094) Diagnoses Pre-operative clearance Z01.818 Time Spent (min) 20 Assessment & Plan Assessment & Plan (1) Pre-operative clearance: Code(s): Z01.818 - Encounter for other preprocedural examination Plan: Labs: CMP, CBC,A1C ordered (please see results Tab) ECG: Sinus Rhythm, Tachy (Pt is very Anxious) Medications reviewed and updated. Tirzepatide on hold for now, Pt had severe GI issues plus weight loss. Plan PER TODAY'S ROS AND PHYSICAL EXAMINATION, PATIENT IS CLEARED FOR SURGERY WITH MINIMAL TO MODERATE RISK FACTORS. Orders: Orders Hemoglobin A1c 06/12/24 E11.9 - Type 2 diabetes mellitus without complications Medications: On Hold tirzepatide Hold Comment: GI UPSET 5 mg (0.5 mL) subcut QWEEK 2 mL 0RF
== END 2024-06-12 15:08 | disposition home or self-care (01) ==
LOC: HO.HMCC 13:46
PROVIDERS: PCP Nurse Practitioner Primary Care; Visit Provider Nurse Practitioner Family
DX: Z01.818 Encounter for other preprocedural examination (principal)

== ENCOUNTER 2024-06-12 13:45 | Outpatient (REF) | payer MEDICARE, MEDICAID, SELFPAY ==
[2024-06-12 16:58] LABS: Estimated Average Glucose 146 mg/dL; Hemoglobin A1C 213.3635 umol/L; Hemoglobin A1c % 6.7 % (<6.0); Total Hemoglobin (HGBA1C) 4260.4389 umol/L
== END 2024-06-12 13:46 | disposition home or self-care (01) ==
LOC: HO.HMGCLDS 13:45
PROVIDERS: PCP Nurse Practitioner Family; Visit Provider Nurse Practitioner Family
DX: Z01.818 Encounter for other preprocedural examination (principal); E11.9 Type 2 diabetes mellitus without complications
CPT/HCPCS: 36415; 83036; 99212

== ENCOUNTER → 2024-07-01 08:57 | Outpatient (BNVA) | payer MEDICARE, MEDICAID, SELFPAY | PROVIDERS: PCP Nurse Practitioner Primary Care | DX: Z01.818 Encounter for other preprocedural examination (principal) ==

== ENCOUNTER → 2024-07-07 12:09 | Outpatient (BNV) | payer MEDICARE, MEDICAID, SELFPAY | PROVIDERS: PCP Nurse Practitioner Family; Visit Provider Internal Medicine | DX: R00.0 Tachycardia, unspecified (principal); I49.3 Ventricular premature depolarization | CPT/HCPCS: 93010 ==

== ENCOUNTER 2024-07-24 08:40 | Outpatient (AMB) | payer MEDICARE, MEDICAID, SELFPAY ==
--- NOTE | 2024-07-24 08:55 | MHC.OFFVIS ---
Intake Visit Reasons: Pre-Op(TM MALIK): L Reverse TSA 07/29/24 w/NE Intake Note: Jose a 69 year old male who presents today for a preoperative visit of LT Reverse TSA, DOS: 07/29/24 NE. Pain management agreement reviewed and signed. Allergies No Known Allergies Allergy (Verified 07/24/24 09:04) Medication List - Last Reconciled 07/24/24 by Sandip Garvey PA-C amlodipine 10 mg PO QAM atorvastatin 40 mg PO BEDTIME blood sugar diagnostic ([place] Ultra Test strips) USE TO TEST BLOOD SUGAR ONCE A DAY blood-glucose meter ([employer] People Ultra2 Meter) As directed blood-glucose meter As directed empagliflozin (Jardiance) 25 mg PO QAM lancets ([place] Delica Plus Lancet) Test blood sugar once a day lancing device with lancets ([employer] People Delica Plus Lancing Device kit) As directed lisinopril 40 mg PO QAM metformin 1,000 mg PO BID 90 days Mounjaro (tirzepatide) 2.5 mg (0.5 mL) subcut QWEEK NS pantoprazole 40 mg PO BEDTIME sildenafil 100 mg PO DAILY PRN tramadol 50 mg PO Q8H PRN 1 month HPI Comments Details: Mr Ansari presents to the office today for preop visit. He is scheduled for left reverse total shoulder arthroplasty with Dr. Long. He continues to have ongoing pain and difficulty with in the left shoulder, which is affecting his quality of life; therefore, he has elected to move forward with surgery. [facility] Medical History (Updated 07/07/24 @ 12:00 by Jaimee Barrera RN) Alcohol dependence in sustained full remission GERD (gastroesophageal reflux disease) Seizures Hyperlipidemia Hypertension Diabetes type 2, controlled Surgical History H/O colonoscopy Hx of appendectomy H/O rotator cuff surgery History of ankle surgery Family History Father Diabetes Social History Housing: Apartment Are you a primary career specialist to a significant other at home: No Do you presently have visiting nurse or other home services: No Alcohol intake: former Patient Tobacco Use Status: Never used Tobacco e-Cigarette/Vaping Use: Never Used service: No Current occupational status: retired Current occupation: left hand dominant Current occupational exposures/hazards: No Cognitive needs: No Hearing needs: No Vision needs: Yes Review of Systems Const All systems reviewed & are unremarkable except as noted in HPI and below Physical Exam Const General: cooperative, healthy appearing, comfortable, no acute distress, well developed and alert Orientation/consciousness: patient oriented x3 HEENT Head: Yes normal to inspection, Yes normocephalic and Yes atraumatic Eyes General: appearance normal, both eyes and all related structures Neck Neck: Yes normal visual inspection and Yes no lymphadenopathy Resp Effort & Inspection: normal respiratory effort and able to speak in complete sentences Cardio Rate: regular rate Peripheral pulses: Peripheral pulses 2+ throughout GI Inspection: Yes normal to inspection Palpation (GI): Soft to palpation Skin General skin exam: no rashes or lesions noted Neuro General: patient oriented x3 Extrem Other: 4- out of 5 empty can on the left with external rotation to 25 degrees and active abduction to 40 degrees when controlling for scapular motion. Negative lift-off Psych Appearance: grossly normal Mental Status: mental status grossly normal Assessment & Plan Assessment & Plan (1) Rotator cuff arthropathy of left shoulder: Code(s): M12.812 - Other specific arthropathies, not elsewhere classified, left shoulder Category: Medical Plan I discussed in detail the procedure and what to expect pre and post operatively.? We discussed the risks, benefits and alternatives to the surgery as well as the rehabilitation course. The risks; which include, but are not limited to infection, bleeding, nerve injury, ongoing pain, swelling, and stiffness, perioperative risk of injury to bones and soft tissues, and blood clots. ? I?ve answered all questions and with their understanding they have consented to move forward with reverse left total shoulder arthroplasty with Dr. Long Patient can tolerate Oxycodone and tyelenol Patient was fit for a sling today in the office for post op use Coding Level of Care Code Est Pt Level 3 (79551) Complex EM visit Add On G2211 Diagnoses Rotator cuff arthropathy of left shoulder M12.812
== END 2024-07-24 09:31 | disposition home or self-care (01) ==
PROVIDERS: PCP Nurse Practitioner Family; Visit Provider Physician Assistant
DX: M12.812 Other specific arthropathies, not elsewhere classified, left shoulder (principal)
CPT/HCPCS: 99213; G2211

== ENCOUNTER → 2024-07-24 08:40 | Outpatient (BNVA) | payer MEDICARE, MEDICAID, SELFPAY | PROVIDERS: PCP Nurse Practitioner Family; Visit Provider Physician Assistant | DX: M12.812 Other specific arthropathies, not elsewhere classified, left shoulder (principal) | CPT/HCPCS: 99212 ==

== ENCOUNTER 2024-07-29 08:45 | Day surgery (SDC) | payer MEDICARE, MEDICAID, SELFPAY ==
[2024-07-07 11:57] VITALS: BP 130/72; PULSE 97; RESP 20; O2SAT 97
--- NOTE | 2024-07-07 12:09 | ECG_ITS ---
Test Reason : preop Blood Pressure : / mmHG Vent. Rate : 103 BPM Atrial Rate : 103 BPM P-R Int : 148 ms QRS Dur : 088 ms QT Int : 324 ms P-R-T Axes : 051 043 037 degrees QTc Int : 424 ms Sinus tachycardia with occasional Premature ventricular complexes Otherwise normal ECG No previous ECGs available Referred By: Rosemary Gonzalez Electronically Signed By:MEME SNOWDEN
[2024-07-07 13:08] LABS: Hematocrit 46.4 % (42.0-52.0); Hemoglobin 15.9 g/dl (14.0-18.0); Mean Corpuscular HGB Conc 34.3 g/dl (31.0-36.0); Mean Corpuscular Hemoglobin 31.2 pg (27.0-33.0); Mean Corpuscular Volume 91.2 fL (80.0-98.0); Mean Platelet Volume 9.2 fL (9.4-12.4); Platelet Count 271 X10*3/uL (160-400); Red Blood Count 5.09 X10*6/uL (4.60-5.80); Red Cell Distribution Width 12.5 % (11.0-16.0)
[2024-07-07 13:57] LABS: Alanine Aminotransferase 30 U/L (0-40); Albumin Level 4.3 g/dL (3.5-5.0); Alkaline Phosphatase 76 U/L (39-117); Anion Gap 15 (12-20); Aspartate Amino Transferase 20 U/L (5-37); Bilirubin Total 0.5 mg/dL (0.0-1.0); Blood Urea Nitrogen 11 mg/dL (9-16); Calcium 9.1 mg/dL (8.4-10.2); Carbon Dioxide 20 mmol/L (22-29); Chloride 107 mmol/L (96-108); Creatinine Clr Calc Pharmacy 71.6; Estimated Glomerular Filt Rate > 60; Glucose Random 143 mg/dL (60-115); Potassium 3.7 mmol/L (3.3-5.1); Sodium 138 mmol/L (135-145); Total Protein 7.1 g/dL (6.5-8.0)
[2024-07-07 15:04] LABS: MRSA Nasal PCR NEGATIVE (Negative); SA Nasal PCR NEGATIVE (Negative)
--- NOTE | 2024-07-16 12:14 | P.CONAN_ITS ---
HPI - Anesthesia Eval Consult details Narrative: 69yo M for Left Reverse Shoulder Total Arthroplasty, 07/29/24 PAT 07/07/24 - anesthesia unavailable [facility] Active Problems Active Problems: All Active Problems Rotator cuff arthropathy of left shoulder (Acute) Muscle spasm (Acute) Rotator cuff tear, left (Acute) Rotator cuff tear, right (Acute) Impingement syndrome of left shoulder (Acute) Left shoulder pain (Acute) H/O rotator cuff surgery (Acute) Diabetes type 2, controlled (Acute) Hypertension (Acute) Hyperlipidemia (Acute) Past Medical History Medical History (Updated 08/01/24 @ 00:02 by Background Daemon) Alcohol dependence in sustained full remission GERD (gastroesophageal reflux disease) Seizures Hyperlipidemia Hypertension Diabetes type 2, controlled Family History Family History Father Diabetes Surgical History Surgical History (Updated 08/01/24 @ 00:02 by Background Daemon) History of total replacement of left shoulder joint H/O colonoscopy Hx of appendectomy H/O rotator cuff surgery History of ankle surgery Social History Social History Household Members: Spouse Housing: Apartment Are you a primary patient centered care specialist to a significant other at home: No Do you presently have visiting nurse or other home services: No Alcohol intake: former Patient Tobacco Use Status: Never used Tobacco e-Cigarette/Vaping Use: Never Used service: No Current occupational status: retired Current occupation: left hand dominant Current occupational exposures/hazards: No Cognitive needs: No Hearing needs: No Vision needs: Yes Meds Allergies Allergy/AdvReac Type Severity Reaction Status Date / Time No Known Allergies Allergy Verified 07/29/24 09:19 Home Medications ?Medication ?Instructions ?Recorded ?Confirmed ?Last Taken ?Type atorvastatin 40 mg tablet 40 mg PO BEDTIME 07/18/23 07/29/24 07/28/24 History lisinopril 40 mg tablet 40 mg PO DAILY 07/18/23 07/29/24 07/28/24 History pantoprazole 40 mg tablet,delayed 40 mg PO BEDTIME 07/18/23 07/29/24 07/28/24 History release sildenafil 100 mg tablet 100 mg PO DAILY PRN Erectile 04/16/24 07/29/24 Unknown History Dysfunction amlodipine 10 mg tablet 10 mg PO DAILY 07/29/24 07/29/24 07/29/24 History Exam Height,Weight and Vital Signs: Height 5 ft 4 in Weight 79.379 kg Last Vital Signs Pulse 97 07/07/24 11:57 Resp 20 07/07/24 11:57 BP 130/72 07/07/24 11:57 Pulse Ox 97 07/07/24 11:57 O2 Del Method Room Air 07/07/24 11:57 Pertinent Lab Results Pertinent Lab Results: Laboratory Tests 07/07/24 07/07/24 12:15 12:41 WBC 9.0 RBC 5.09 Hgb 15.9 Hct 46.4 MCV 91.2 MCH 31.2 MCHC 34.3 RDW 12.5 Plt Count 271 MPV 9.2 L Absolute Nucleated RBC 0.000 Nucleated RBC % (auto) 0.0 Sodium 138 Potassium 3.7 Chloride 107 Carbon Dioxide 20 L Anion Gap 15 BUN 11 Creatinine 0.90 Estim Creat Clear Calc 71.6 Estimated GFR > 60 Random Glucose 143 H Calcium 9.1 Total Bilirubin 0.5 AST 20 ALT 30 Alkaline Phosphatase 76 Total Protein 7.1 Albumin 4.3 Nasal Screen MRSA (PCR) NEGATIVE Nasal S. aureus Screen NEGATIVE Nasal MRSA/S.aureus Interp SEE NOTE Narrative Narrative: EKG 06/2024 Vent. Rate : 103 BPM Atrial Rate : 103 BPM P-R Int : 148 ms QRS Dur : 088 ms QT Int : 324 ms P-R-T Axes : 051 043 037 degrees QTc Int : 424 ms Sinus tachycardia with occasional Premature ventricular complexes Otherwise normal ECG No previous ECGs available ECHO 11/2023 Conclusions: - The left ventricular systolic function is normal. The calculated ejection fraction is 62% by biplane method. - No obvious valvular pathology seen on this study. Assessment and Plan Assessment Anesthesia Assessment: Chart Reviewed
[2024-07-24 09:44] LABS: MANUAL DIFF FLAG NO
[2024-07-24 10:43] LABS: Basophils Absolute Auto 0.1 X10*3/uL (0.0-0.2); Basophils Percent Auto 0.7 % (0-2); Eosinophils Absolute Auto 0.5 X10*3/uL (0.0-0.4); Eosinophils Percent Auto 5.6 % (0-4); Hematocrit 47.7 % (42.0-52.0); Hemoglobin 16.4 g/dl (14.0-18.0); Imm Gran Abs Auto 0.02 X10*3/uL (0.00-0.03); Imm Gran Pct Auto 0.2 % (0.0-0.4); Lymphocytes Absolute Auto 2.3 X10*3/uL (1.2-4.9); Lymphocytes Percent Auto 27.1 % (20-40); Mean Corpuscular HGB Conc 34.4 g/dl (31.0-36.0); Mean Corpuscular Hemoglobin 31.6 pg (27.0-33.0); Mean Corpuscular Volume 91.9 fL (80.0-98.0); Mean Platelet Volume 9.2 fL (9.4-12.4); Monocytes Absolute Auto 0.6 X10*3/uL (0.1-1.2); Monocytes Percent Auto 7.3 % (2-11); Neutrophils Percent Auto 59.1 % (45-73); Platelet Count 281 X10*3/uL (160-400); Red Blood Count 5.19 X10*6/uL (4.60-5.80); Red Cell Distribution Width 12.3 % (11.0-16.0); White Blood Count 8.5 X10*3/uL (4.8-10.8)
[2024-07-24 11:07] LABS: Anion Gap 17 (12-20); Blood Urea Nitrogen 8 mg/dL (9-16); Calcium 9.5 mg/dL (8.4-10.2); Carbon Dioxide 25 mmol/L (22-29); Chloride 104 mmol/L (96-108); Creatinine Clr Calc Pharmacy 73.2; Estimated Glomerular Filt Rate > 60; Glucose Random 150 mg/dL (60-115); Sodium 142 mmol/L (135-145)
[2024-07-29] VITALS (10 sets, daily range): BP systolic 100–151; BP diastolic 60–77; PULSE 86–110; RESP 14–18; TEMP 36.2–37.2; O2SAT 93–97; BMI 30.6; BMI 30.5
--- NOTE | ~2024-07-29 | XR_ITS ---
EXAMINATION: XR SHOULDER, LEFT CLINICAL INFORMATION: Reverse total shoulder COMPARISON: 11/23/2023 TECHNIQUE: One view of the left shoulder. FINDINGS: The reverse total shoulder arthroplasty components are in the usual position and alignment without evidence of loosening or fracture on this single AP view. Skin meghan overlie the operative site. XR/XR shoulder LT 1V IMPRESSION: Appropriate alignment of the reverse total shoulder arthroplasty on this single AP view. A 6 mm cylindrical appearing density lateral to the proximal humerus is of uncertain etiology, possibly external to the patient although could represent a dislodged and retracted biceps tenodesis. Correlate clinically. Electronically signed by: Wally Donnelly MD 07/29/2024 06:05 PM ARRON LOO
[2024-07-29 09:20] LABS: Glucose, Whole Blood 200 mg/dL (60-115)
[2024-07-29] MEDS: Lactated Ringers 1,000 ML 100 ML IVCONT ×2 (09:38→16:11)
--- NOTE | 2024-07-29 11:05 | MHC.SHP ---
Pre-Procedural Eval Section A - 24 Hr Update-Section A only Date of Service: 07/29/24 The patient is an INPATIENT: No Changes since office visit: No Cold of Flu in the past 2 weeks, No New Medical Problems, No Changes in Medication and No Patient answered all questions The patient has been examined within 24 hours of the surgical procedure. The History & Physical has been completed within 30 days and I have reviewed it.: Yes Section B - Complete if H&P > 30 days Chief Complaint: Other specified postprocedural states Allergies: Allergies Allergy/AdvReac Type Severity Reaction Status Date / Time No Known Allergies Allergy Verified 07/29/24 09:19 Plan I have reviewed the history and physical and performed a pertinent physical examination on my patient. No changes have occurred unless specified. Time Spent With Patient Time: Total time managing care of this patient today ____ minutes.
--- NOTE | 2024-07-29 12:54 | P.DS_ITS ---
DS: Providers Provider Date of Service: 07/30/24 Primary care physician: Alexandre Mccabe, [facility] DS: Summary Hospital Course Hospital Course: The patient underwent a successful reverse left total shoulder arthroplasty, they were transferred to PACU and then to the floor to recover. During their stay, their vitals were stable, afebrile at 97.7. Labs were unremarkable, H/H 12.4/36.0. POD 1 they received Occupational Therapy services. Prior to discharge, their dressing was clean dry and intact, and the plan was to be discharged home with VNA services. Time Attestation Discharge Coordination Time (in mins): 30 Quality: Safe Use of Opioids Does Pt have an Active Cancer Diagnosis on the Problem List?: No Quality: Stroke Does the patient have a stroke diagnosis?: No Physical Exam Vital Signs: Vital Signs: Last Vital Signs Temp 97.4 F 07/29/24 09:09 Pulse 94 07/29/24 09:09 Resp 16 07/29/24 09:09 BP 148/74 H 07/29/24 09:09 Pulse Ox 95 07/29/24 09:09 O2 Del Method Room Air 07/29/24 09:09 BMI result Body Mass Index 30.6 Const: General: cooperative, healthy appearing and no acute distress Resp: Effort & Inspection: normal respiratory effort and able to speak in complete sentences Cardio: Rate: regular rate Peripheral pulses: Peripheral pulses 2+ throughout GI: Palpation (GI): Soft to palpation Skin: Lesions: no lesions Rashes: no rashes Extrem: Other: left shoulder dressing is c/d/i. Able to flex and extend all digits. Able to perform thumbs up. Sensation intact. Radial pulse intact. DS: Data Data Completed and Pending Labs on day of discharge: Laboratory Results - last 24 hr 07/29/24 09:17 POC Glucose 200 H Discharge Plan Discharge Patient Disposition: Home, Self-Care Referrals: Sandip Garvey PA-C [Physician Shipping Specialist] - 08/14/24 11:00 am Discharge Medications: New celecoxib 200 mg Capsule 200 mg PO BID 30 Days Qty: 60 0RF acetaminophen 325 mg Tablet 650 mg PO Q6H PRN (Reason: Pain, Mild (Pain Scale 1-3), fever or headache) 30 Days Qty: 240 0RF aspirin 81 mg Tablet,Chewable 81 mg PO BID 42 Days Qty: 84 0RF oxycodone 5 mg Tablet 5 mg PO Q4H PRN (Reason: Pain, Moderate(Pain Scale 4-6)) 7 Days Qty: 42 0RF Rx Instructions: Partial Fill upon patient request. docusate sodium 100 mg Capsule 100 mg PO BID 30 Days Qty: 60 0RF Continued (DME) blood-glucose meter [OneTouch Ultra2 Meter] [facility] See Rx Instructions .Route Qty: 1 0RF Rx Instructions: As directed (DME) lancets [OneTouch Delica Plus Lancet] 33 gauge misc See Rx Instructions .Route Qty: 100 1RF Rx Instructions: Test blood sugar once a day (DME) lancing device with lancets [OneTouch Delica Plus Lanc Dev] Kit See Rx Instructions .Route Qty: 1 0RF Rx Instructions: As directed Mounjaro 2.5 mg/0.5 mL pen injector 2.5 mg subcut QWEEK Qty: 2 2RF Rx Instructions: takes on Mondays metformin 1,000 mg tablet 1,000 mg PO BID 90 Days Qty: 180 1RF tramadol 50 mg tablet 50 mg PO Q8H PRN (Reason: pain) 30 Days Qty: 90 0RF Jardiance 25 mg tablet 25 mg PO DAILY amlodipine 10 mg tablet 10 mg PO DAILY lisinopril 40 mg tablet 40 mg PO DAILY atorvastatin 40 mg tablet 40 mg PO BEDTIME pantoprazole 40 mg tablet,delayed release (DR/EC) 40 mg PO BEDTIME (DME) blood-glucose meter Kit See Rx Instructions .Route Qty: 1 0RF Rx Instructions: As directed sildenafil 100 mg tablet 100 mg PO DAILY PRN (Reason: Erectile Dysfunction) (DME) OneTouch Ultra Test Strip See Rx Instructions .ROUTE .COMPLEX Qty: 300 3RF Dose Instruction: USE TO TEST BLOOD SUGAR ONCE A DAY Rx Instructions: USE TO TEST BLOOD SUGAR ONCE A DAY Discharge Orders: Discharge Order (Routine); Ordered 07/30/24 Ordered By: Oralia Morel Diet: Advance to usual diet Activity on Discharge: Use Splints or Immobilizers Activity Restrictions/Additional Instructions: Wear sling at all times, including sleeping No lifting-OK to move arm at elbow and wrist Bandage should remaine on at all times - Do not get wet Call orthopedics if bandage needs to be changed or begins to come off Call [facility] orthopedics with any questions or concerns. Follow up with orthopedics in 7-10 days post op Print Language: Sudanese
--- NOTE | 2024-07-29 12:56 | P.F2F_ITS ---
Service Date Service Date: 07/29/24 Encounter Date of encounter: 07/30/24 Reasons for Services Signs and symptoms assessed: s/p Left rTSA Pt. is considered homebound due to recent surgery. Unable to drive, poor balance, poor gait mechanics. Reason for occupational therapy: home safety and mobility, therapeutic exercises, restore joint function, gait/transfer training and ADL training Homebound: Leaving the home is medically contraindicated at this time without the asist of a device and/or another person due th the listed conditions above and below. Reason homebound: unsteady gait / fall risk, pain with ambulation and unable to drive Certification: Based on the above findings, I certify that this patient is confined to the home and needs intermittent assisted care, physical therapy and/or speech therapy, or continues to need occupational therapy. The patient is under my care, and I have initiated the establishment of the plan of care. The patient will be followed by a physician who will periodically review the plan of care. Time Spent With Patient Time: Total time managing care of this patient today ____ minutes.
--- NOTE | 2024-07-29 13:51 | PM.OP ---
Brief Operative Note Date of Service: 07/29/24 Pre-op diagnosis: Left shoulder RTC arthropathy Post-op diagnosis: same Procedure: RTSA, left Implants: Left shoulder rTSA Standard 25mm baseplate with 35 mm 6.5 central screw and a 30 mm superior locking and two non locking screws with a 39 centered glenosphere Tournier Flex B 132.5 stem with standared tray and a 39/6mm insert Surgeon: Jeremías Long MD Anesthesia: GETA and regional Was an Field Supervisor used for this Procedure?: Yes Field Supervisor: Sandip Garvey Estimated blood loss (mL): 200 IV fluids (mL): 1,000 Pathology: other Condition: stable Disposition: PACU
--- NOTE | 2024-07-29 13:54 | W.PM.OPN ---
Operative Note Operative Note Date of Service: 07/29/24 Narrative: Date of Service: 07/29/24 Pre-op diagnosis: Left shoulder RTC arthropathy Post-op diagnosis: same Procedure: RTSA, left Implants: Left shoulder rTSA Standard 25mm baseplate with 35 mm 6.5 central screw and a 30 mm superior locking and two non locking screws with a 39 centered glenosphere Tournier Flex B 132.5 stem with standared tray and a 39/6mm insert Surgeon: Jeremías Long MD Anesthesia: GETA and regional Was an Candy Department Manager used for this Procedure?: Yes Candy Department Manager: Sandip Garvey Estimated blood loss (mL): 200 IV fluids (mL): 1,000 Pathology: other Condition: stable Disposition: PACU Procedure in detail: Patient was brought to the operating room and placed in the beach chair position on the surgical table. The limb was prepped and draped in standard sterile fashion and a time out was called to identify proper site, proper procedure and IV antibiotics per weight were administered. I began by making a deltopectoral incision from the coracoid to the pectoralis insertion. Blunt dissection identified the cephalic vein which was retracted laterally. Blunt dissection was taken down to the clavipectoral fasica and then the 3 sisters which were cauterized. I then made a full-thickness capsulotomy involving the subscapularis 1 cm medial to its insertion. This was then tagged and the arm was externally rotated and extended and the head was dislocated. The humeral head was high riding and required a release of the intact posterior fibers of the rotator cuff. There was no supraspinatus/infraspinatus. Once the head was well visualized a anatomic neck cut was made in approximately 132 degree angle while protecting the posterior and inferior soft tissues. A starter awl was used to identify the canal and then I broached up to a size 2 at 30 degrees of version. I used a planar to remove excess bone. Several old RTC anchors were removed. I then placed my head protector and turned my attention to the glenoid. Posterior anterior and superior glenoid retractors were placed and the biceps was tenotomized and labral tissue was removed. Care was taken to protect the inferior soft tissues. Based on the preoperative CT and templating a guide pin was placed in approximately 7 degrees of retroversion and neutral inclination. Using a wedge Reamer I reamed down to bleeding bone mostly inferiorly and placed the central glenoid drill guide. I overdrilled this and then drilled and measured a central screw depth of 35mm. The 25 standard baseplate and a 35 6.5 mm crentral screw were inserted with excellent bony purchase. I then placed 2 nonlocking and 1locking screw superiorly around the central screw. I then placed a provisional glenosphere. I then returned to the humerus where I trialed a standard tray and 39/6mm insert. I had excellent stability with a clunk on location and a deltoid divot. I could not dislocate the shoulder without a shoehorn. I was satisfied with the stability. I then removed all instrumentation and copiously irrigated., A 2 stem was placed wityh a standard tray and I re-trialed with a +6 poly. I , again, was satisfied with the stability. The final poly was inserted and the shoulder reduced. I irrigated again and then closed the capsule and subscapularis with fiberwire. I closed in a layered fashion with absorbable suture and meghan and the patient was placed in a sterile dressing and an abduction sling. She was extubated brought to recovery room stable condition there were no known complications.
--- NOTE | 2024-07-29 14:37 | PHA.MEDREC ---
Addendum entered by Augustus Villalta 07/29/24 14:52: reviewed Original Note: Pharmacy Consult ? Medication Reconciliation Pharmacy has reviewed the medication reconciliation done by nursing. Claims match med list. Mounjaro 2.5 mg is Mondays per nursing note, last dose 07/21/24
[2024-07-29] MEDS: lisinopriL 40 MG TABLET PO (16:09)
[2024-07-29] MEDS: 0.9 % Sodium Chloride Flush 3 ML SYRINGE IVFLUSH (16:11)
--- NOTE | 2024-07-29 16:11 | HO.PM.IMCN ---
History of Present Illness Data of Consult Service Date: 07/29/24 Primary Care Provider: Alexandre Mccabe, [facility]- HPI 69-year-old man with a history of diabetes mellitus, hypertension admitted by Orthopedic surgery and is status post left RTSA surgery. Surgery was unremarkable. Patient has been able to eat and drink without any nausea or vomiting. Vital signs are stable. Patient is hemodynamically stable no acute complaints at this time. Review of Systems Review of Systems: Denies any recent fever chills or decrease in appetite respiratory denies any shortness of breath or cough cardiovascular denies chest pain gastrointestinal denies any dysphagia abdominal pain nausea vomiting or diarrhea genitourinary denies any dysuria frequency or hematuria musculoskeletal denies any joint pain or swelling neuropsych status post RTSA all other systems reviewed are negative [facility] Medical History (Updated 07/07/24 @ 12:00 by Jaimee Barrera RN) Alcohol dependence in sustained full remission GERD (gastroesophageal reflux disease) Seizures Hyperlipidemia Hypertension Diabetes type 2, controlled Family History Father Diabetes Surgical History H/O colonoscopy Hx of appendectomy H/O rotator cuff surgery History of ankle surgery Social History Household Members: Spouse Housing: Apartment Are you a primary direct care counselor to a significant other at home: No Do you presently have visiting nurse or other home services: No Alcohol intake: former Patient Tobacco Use Status: Never used Tobacco e-Cigarette/Vaping Use: Never Used service: No Current occupational status: retired Current occupation: left hand dominant Current occupational exposures/hazards: No Cognitive needs: No Hearing needs: No Vision needs: Yes Meds Allergies Allergy/AdvReac Type Severity Reaction Status Date / Time No Known Allergies Allergy Verified 07/29/24 09:19 Active Medications: Current Medications Acetaminophen (Acetaminophen 325 Mg Tablet) 650 mg PO Q6H PRN PRN Reason: Pain, Mild (Pain Scale 1-3), fever or headache Aspirin (Aspirin 81 Mg Tab.Chew) 81 mg PO BID MALACHI Celecoxib (Celecoxib 200 Mg Capsule) 200 mg PO BID MALACHI Docusate Sodium (Docusate Sodium 100 Mg Capsule) 100 mg PO BID [facility] Hydromorphone HCl (Hydromorphone Hcl 0.5 Mg/0.5 Ml Syringe) 0.25 mg IVPUSH Q4H PRN; Protocol PRN Reason: Pain, Severe (Pain Scale 7-10) Lactated Ringer's (Lr) 1,000 mls @ 100 mls/hr IVCONT .Q10H [facility] Cefazolin Sodium/Dextrose (Ancef) 2 gm in 50 mls @ 100 mls/hr IV POSTOP ONE Stop: 07/29/24 18:29 Lisinopril (Lisinopril 40 Mg Tablet) 40 mg PO DAILY [facility]; Protocol Melatonin (Melatonin 3 Mg Tablet) 6 mg PO BEDTIME PRN PRN Reason: Insomnia Omeprazole (Omeprazole 20 Mg Capsule.Dr) 20 mg PO DAILY@0630 [facility] Ondansetron HCl (Ondansetron Hcl 4 Mg/2 Ml Vial) 4 mg IVPUSH Q8H PRN PRN Reason: Nausea and Vomiting Oxycodone HCl (Oxycodone Hcl Immed Release 5 Mg Tablet) 5 mg PO Q4H PRN PRN Reason: Pain, Moderate(Pain Scale 4-6) Oxycodone HCl (Oxycodone Hcl Er 10 Mg Tab.Er.12h) 10 mg PO BID [facility] Sodium Chloride (0.9 % Sodium Chloride Flush 3 Ml Syringe) 3 ml IVFLUSH QSHIFT [facility] Home Medications ?Medication ?Instructions ?Recorded ?Confirmed ?Last Taken ?Type atorvastatin 40 mg tablet 40 mg PO BEDTIME 07/18/23 07/29/24 07/28/24 History lisinopril 40 mg tablet 40 mg PO DAILY 07/18/23 07/29/24 07/28/24 History pantoprazole 40 mg tablet,delayed 40 mg PO BEDTIME 07/18/23 07/29/24 07/28/24 History release sildenafil 100 mg tablet 100 mg PO DAILY PRN Erectile 04/16/24 07/29/24 Unknown History Dysfunction empagliflozin 25 mg tablet 25 mg PO DAILY 07/07/24 07/29/24 07/25/24 History (Jardiance) amlodipine 10 mg tablet 10 mg PO DAILY 07/29/24 07/29/24 07/29/24 History Physical Exam Vital Signs and Narrative: Vital Signs: Last Vital Signs Temp 98.1 F 07/29/24 16:00 Pulse 110 H 07/29/24 16:00 Resp 18 07/29/24 16:00 BP 151/72 H 07/29/24 16:00 Pulse Ox 93 07/29/24 16:00 O2 Del Method Room Air 07/29/24 16:00 O2 Flow Rate 4 07/29/24 14:10 BMI result Body Mass Index 30.5 Appearing in no acute distress head is normocephalic atraumatic eyes pupils are PERRLA sclera is anicteric mouth throat mucous membranes are intact and moist neck is supple no lymphadenopathy, no JVD noted lung sounds are clear to auscultation heart regular rate rhythm, clear S1, S2 positive bowel sounds, abdomen is soft, nontender neuro patient is alert x3, no focal deficits Results Labs 07/24/24 09:43 07/24/24 09:43 Labs: Laboratory Results - last 24 hr 07/29/24 09:17 POC Glucose 200 H Assessment and Plan (1) Rotator cuff tear, right: Status: Acute Plan 69-year-old man admitted by Orthopedic surgery and is status post RTSA surgery Left RTSA Management as per surgical team Pain management Diabetes mellitus type 2 Sliding scale, ADA diet Hypertension Continue amlodipine and lisinopril GERD Continue PPI DVT prophylaxis as per surgical team Medical consultation complete. Will sign off
[2024-07-29 16:59] LABS: Glucose, Whole Blood 268 mg/dL (60-115)
[2024-07-29] MEDS: Insulin Lispro 100 UNIT/ML 3 ML VIAL SUBCUT ×2 (17:49→20:38)
[2024-07-29] MEDS: ceFAZolin Sodium/Dextrose,Iso 2 GM/50 ML PIGGYBACK IV (17:50)
[2024-07-29 20:25] LABS: Glucose, Whole Blood 295 mg/dL (60-115)
[2024-07-29] MEDS: Docusate Sodium 100 MG CAPSULE PO (20:35)
[2024-07-29] MEDS: oxyCODONE HCl ER 10 MG TAB.ER.12H PO (20:35)
[2024-07-29] MEDS: Acetaminophen 325 MG TABLET 650 MG PO (20:35)
[2024-07-29] MEDS: oxyCODONE HCl Immed Release 5 MG TABLET PO (20:36)
[2024-07-30] MEDS: Lactated Ringers 1,000 ML 100 ML IVCONT (01:57)
[2024-07-30 03:18] VITALS: BP 110/63; PULSE 82; RESP 16; TEMP 36.5; O2SAT 95
[2024-07-30] MEDS: HYDROmorphone HCl 0.5 MG/0.5 ML SYRINGE 0.25 MG IVPUSH (05:32)
[2024-07-30 06:46] LABS: MANUAL DIFF FLAG NO
[2024-07-30 06:49] LABS: Basophils Percent Auto 0.2 % (0-2); Eosinophils Percent Auto 0.1 % (0-4); Hemoglobin 12.4 g/dl (14.0-18.0); Imm Gran Abs Auto 0.07 X10*3/uL (0.00-0.03); Imm Gran Pct Auto 0.6 % (0.0-0.4); Lymphocytes Absolute Auto 1.7 X10*3/uL (1.2-4.9); Lymphocytes Percent Auto 13.2 % (20-40); Mean Corpuscular HGB Conc 34.4 g/dl (31.0-36.0); Mean Corpuscular Hemoglobin 31.5 pg (27.0-33.0); Mean Corpuscular Volume 91.4 fL (80.0-98.0); Mean Platelet Volume 9.5 fL (9.4-12.4); Monocytes Absolute Auto 1.1 X10*3/uL (0.1-1.2); Monocytes Percent Auto 8.7 % (2-11); Neutrophils Absolute Auto 9.8 x10*3/uL (2.0-8.3); Neutrophils Percent Auto 77.2 % (45-73); Platelet Count 226 X10*3/uL (160-400); Red Blood Count 3.94 X10*6/uL (4.60-5.80); Red Cell Distribution Width 12.6 % (11.0-16.0); White Blood Count 12.6 X10*3/uL (4.8-10.8)
[2024-07-30 07:08] LABS: Anion Gap 12 (12-20); Blood Urea Nitrogen 14 mg/dL (9-16); Calcium 8.3 mg/dL (8.4-10.2); Carbon Dioxide 21 mmol/L (22-29); Chloride 106 mmol/L (96-108); Creatinine Clr Calc Pharmacy 82.1; Estimated Glomerular Filt Rate > 60; Glucose Fasting 230 mg/dL (60-99); Potassium 4.3 mmol/L (3.3-5.1); Sodium 135 mmol/L (135-145)
[2024-07-30 07:14] LABS: Glucose, Whole Blood 202 mg/dL (60-115)
[2024-07-30 07:28] VITALS: BP 118/58; PULSE 84; RESP 18; TEMP 36.6; O2SAT 93
[2024-07-30] MEDS: Insulin Lispro 100 UNIT/ML 3 ML VIAL SUBCUT (07:36)
[2024-07-30] MEDS: lisinopriL 40 MG TABLET PO (08:03)
[2024-07-30] MEDS: amLODIPine Besylate 10 MG TABLET PO (08:03)
[2024-07-30] MEDS: oxyCODONE HCl ER 10 MG TAB.ER.12H PO (08:03)
[2024-07-30] MEDS: Acetaminophen 325 MG TABLET 650 MG PO (08:03)
[2024-07-30] MEDS: oxyCODONE HCl Immed Release 5 MG TABLET PO (08:04)
[2024-07-30] MEDS: Docusate Sodium 100 MG CAPSULE PO (08:04)
--- NOTE | 2024-07-30 08:57 | MHC.CM.PN ---
Patient lives in a home w/ . Functionally independent. Denies use of DME or services. PCP Alexandre CRABTREE No HCP. CM provided education and offered assistance. Patient declined. DP: Medically cleared for dc home. [facility] will provide OT. will transport.
--- NOTE | 2024-07-30 10:58 | HO.POSTANES ---
Post Anesthesia Evaluation Post Anesthesia Evaluation Date of Service: 07/30/24 Vital Signs: Vital Signs Temp Pulse Resp BP Pulse Ox O2 Del Method 07/30/24 07:28 97.8 F 84 18 118/58 L 93 Room Air 07/30/24 03:18 97.7 F 82 16 110/63 95 Room Air 07/29/24 23:31 98.9 F 86 16 100/61 93 Room Air Anesthesia: Regional and General Endotracheal-GETA Mental Status: Awake Pain Control: Satisfactory Nausea/Vomiting: None Hydration: Adequate
--- NOTE | 2024-07-30 12:00 | W.MHC.F2F ---
Service Date Service Date: 07/30/24 Encounter Date of encounter: 07/30/24 Reasons for Services Signs and symptoms assessed: s/p left rTSA Pt. is considered homebound due to recent surgery. Unable to drive, poor balance, poor gait mechanics. Reason for physical therapy: home safety and mobility, therapeutic exercises, restore joint function, gait/transfer training and ADL training Reason for occupational therapy: home safety and mobility, therapeutic exercises, restore joint function and ADL training Homebound: Leaving the home is medically contraindicated at this time without the asist of a device and/or another person due th the listed conditions above and below. Reason homebound: unsteady gait / fall risk, leg weakness, pain with ambulation, poor balance / fall risk and unable to drive Certification: Based on the above findings, I certify that this patient is confined to the home and needs intermittent correction care, physical therapy and/or speech therapy, or continues to need occupational therapy. The patient is under my care, and I have initiated the establishment of the plan of care. The patient will be followed by a physician who will periodically review the plan of care. Time Spent With Patient Time: Total time managing care of this patient today ____ minutes.
== END 2024-07-30 10:50 | disposition home health service (06) ==
LOC: HO.SSS 12:56 → HO.S3 15:04
PROVIDERS: Physician Assistant; PCP Nurse Practitioner Family; Visit Provider Orthopaedic Surgery
PROC: (CPT 23472; principal; 2024-07-29 11:30)
DX: M75.102 Unspecified rotator cuff tear or rupture of left shoulder, not specified as traumatic (principal); M12.812 Other specific arthropathies, not elsewhere classified, left shoulder; M25.512 Pain in left shoulder; I10 Essential (primary) hypertension; E78.5 Hyperlipidemia, unspecified; K21.9 Gastro-esophageal reflux disease without esophagitis; E11.9 Type 2 diabetes mellitus without complications; R56.9 Unspecified convulsions; F10.21 Alcohol dependence, in remission; Z79.84 Long term (current) use of oral hypoglycemic drugs; Z79.85 Long-term (current) use of injectable non-insulin antidiabetic drugs; Z79.899 Other long term (current) drug therapy; Z98.890 Other specified postprocedural states
CPT/HCPCS: 23472; 36415; 73020; 80048; 80053; 82947; 85025; 85027; 86850; 86900; 86901; 87640; 87641; 88304; 88305; 88311; 93005; 97165; C1713; C1776; J0131; J0665; J0690; J1100; J1171; J2003; J2250; J2405; J2704; J3010; J7120

== ENCOUNTER → 2024-07-29 08:45 | Outpatient (BNV) | payer MEDICARE, MEDICAID, SELFPAY | PROVIDERS: PCP Nurse Practitioner Family; Visit Provider Orthopaedic Surgery | DX: Z47.1 Aftercare following joint replacement surgery (principal); Z96.612 Presence of left artificial shoulder joint | CPT/HCPCS: 23472; 99024; G0180 ==

== ENCOUNTER → 2024-07-29 08:45 | Outpatient (BNV) | payer MEDICARE, MEDICAID, SELFPAY | PROVIDERS: PCP Nurse Practitioner Family; Visit Provider Nurse Practitioner Acute Care | DX: M75.101 Unspecified rotator cuff tear or rupture of right shoulder, not specified as traumatic (principal); E11.9 Type 2 diabetes mellitus without complications | CPT/HCPCS: 99222 ==

== ENCOUNTER 2024-08-14 10:41 | Outpatient (AMB) | payer MEDICARE, MEDICAID, SELFPAY ==
--- NOTE | 2024-08-14 08:45 | A.OFFVIS_ITS ---
Intake Visit Reasons: 2WK PO: L Reverse TSA w/NE 07/29/24 Intake Note: Jose is a 69 year old male who presents today for a post operative LT Reverse TSA, DOS: 07/29/24 NE. X-rays updated. Patient reports ongoing pain and discomfort. States his current pain level is an 8 out of 10. His pain medication provides only temporary relief. He has concerns of elevated blood sugar after surgery. Allergies No Known Allergies Allergy (Verified 08/14/24 11:12) Medication List - Last Reconciled 08/14/24 by Sandip Garvey PA-C acetaminophen 650 mg (2 x 325 mg) PO Q6H PRN 30 days amlodipine 10 mg PO DAILY aspirin 81 mg PO BID 42 days atorvastatin 40 mg PO BEDTIME blood sugar diagnostic ([employer] Ultra Test strips) USE TO TEST BLOOD SUGAR ONCE A DAY blood-glucose meter ([employer] Ultra2 Meter) As directed blood-glucose meter As directed celecoxib 200 mg PO BID 30 days docusate sodium 100 mg PO BID 30 days empagliflozin (Jardiance) 25 mg PO DAILY lancets ([employer] Delica Plus Lancet) Test blood sugar once a day lancing device with lancets ([employer] Delica Plus Lancing Device kit) As directed lisinopril 40 mg PO DAILY metformin 1,000 mg PO BID 90 days Mounjaro (tirzepatide) 2.5 mg (0.5 mL) subcut QWEEK NS oxycodone 10 mg PO Q4-6H PRN 7 days pantoprazole 40 mg PO BEDTIME sildenafil 100 mg PO DAILY PRN tramadol 50 mg PO Q8H PRN 1 month HPI HPI 2WK PO: L Reverse TSA w/NE 07/29/24: Details: 69-year-old gentleman returns to the office today status post left reverse total shoulder arthroplasty with Dr. Long on 07/29. Patient states he had a an at- home evaluation with home VNA therapy but has not had actual home therapy services. He continues to take 10 mg oxycodone every 4-6 hours p.r.n. pain. [facility] Medical History (Updated 08/01/24 @ 00:02 by Sunday Jessica) Alcohol dependence in sustained full remission GERD (gastroesophageal reflux disease) Seizures Hyperlipidemia Hypertension Diabetes type 2, controlled Surgical History History of total replacement of left shoulder joint H/O colonoscopy Hx of appendectomy H/O rotator cuff surgery History of ankle surgery Family History Father Diabetes Social History Household Members: Spouse Housing: Apartment Are you a primary adult day care worker to a significant other at home: No Do you presently have visiting nurse or other home services: No Alcohol intake: former Patient Tobacco Use Status: Never used Tobacco e-Cigarette/Vaping Use: Never Used service: No Current occupational status: retired Current occupation: left hand dominant Current occupational exposures/hazards: No Cognitive needs: No Hearing needs: No Vision needs: Yes Review of Systems Const All systems reviewed & are unremarkable except as noted in HPI and below Physical Exam Extrem Other: Left shoulder incision clean dry and intact. No erythema. No drainage. Results Reviewed Results Reviewed: Brief Operative Note Date of Service: 07/29/24 Pre-op diagnosis: Left shoulder RTC arthropathy Post-op diagnosis: same Procedure: RTSA, left Implants: Left shoulder rTSA Standard 25mm baseplate with 35 mm 6.5 central screw and a 30 mm superior locking and two non locking screws with a 39 centered glenosphere Tournier Flex B 132.5 stem with standared tray and a 39/6mm insert Surgeon: Jeremías Long MD X-rays of the left shoulder obtained in the office today and reviewed by me showed intact shoulder prosthesis. Assessment & Plan Assessment & Plan (1) History of reverse total replacement of shoulder joint: Code(s): Z96.619 - Presence of unspecified artificial shoulder joint Category: Surgical Plan: [place] removed today Steri-Strips applied. No showering for another week to allow incision to completely heal. He will use the sling at all times but he can remove for resting if he is keeping the arm at his side and he can remove for hygiene and physical therapy exercises. Stressed the importance of avoiding excessive cross-body abduction in any positions behind the coronal plane of the body also avoid any lifting off with the left shoulder. An order for physical therapy has been placed for outpatient therapy and he will see us back for his routine postop appointment with Dr. Mercedes with x-rays sooner if needed. Orders: Orders XR shoulder LT min 2V Today M25.512 - Pain in left shoulder PT Evaluation and Treatment Today Z96.619 - Presence of unspecified artificial shoulder joint Medications: Changed From oxycodone Partial Fill upon patient request. Do not fill until 08/10/24 10 mg PO Q6H 7 days PRN 28 tabs 0RF Pain, Moderate(Pain Scale 4-6) M12.812 - Other specific arthropathies, not elsewhere classified, left shoulder To oxycodone Partial Fill upon patient request. Do not fill until 08/10/24 10 mg PO Q4-6H 7 days PRN 42 tabs 0RF Pain, Moderate(Pain Scale 4-6) M12.812 - Other specific arthropathies, not elsewhere classified, left shoulder Coding Level of Care Code Global (96314) Diagnoses History of reverse total replacement of shoulder joint Z96.619
--- OUTSIDE RECORDS SUMMARY | 2024-08-14 11:11 | XMS_ITS | Clinical Summary ---
Author Organization Unknown Care Team Providers Care [place] Department Supervisor Name Role Phone CLAUDETTE JONES, MK Unavailable Unavailable JUNE PT, KARINE Unavailable Unavailable FERNANDA WOOD CARVING LATHE OPERATOR, JOHNNY Unavailable Unavailable SPAFFORD OT, JULIUS Unavailable Unavailable CONDINO EDEN/TAMAYO, GWEN Unavailable Unav ailable Payers Payer Name Policy Type Policy Number Effective Date Expira tion Date MEDICARE.[facility] [id number] Problems Condition Name Condition Details Condition Category Status Onset Date Resolution Date Last Treatment Date Treating Clinician Comments AFTERCARE FOLLOWING JOINT REPLACEMENT SURGERY Active 2023-08 00:00: 00 ESSENTIAL (PRIMARY) HYPERTENSION Active 2023-08 00:00: 00 TYPE 2 DIABETES MELLITUS WITHOUT COMPLICATION S Active 2023-08 00:00: 00 PURE HYPERCHOLEST EROLEMIA, UNSPECIFIED Active 2023-08 00:00: 00 PRESENCE OF LEFT ARTIFICIAL SHOULDER JOINT Active 2023-08 00:00: 00 [facility] (CURRENT) USE OF NON-STEROIDA L NON-INFLAM (NSAID) Active 2023-08 00:00: 00 [facility] MANA[facility] (CURRENT) USE OF ASPIRIN Active 2023-08 00:00: 00 RENEWALS MANAGER (CURRENT) USE OF ORAL HYPOGLYCEMIC DRUGS Active 2023-08 00:00: 00 Allergies, Adverse Reactions, Alerts Allergy Name Allergy Type Status Severity Reaction(s) Onset Date Inactive Date Treating Clinician Comments NO KNOWN ALLERGIES Propensity to adverse reactions Active 2023-08 11:04: 10 Vital Signs Vital Name Observation Time Observation Value Commen ts Temperature 2024-07-31 15:07:00.000 97.9 [degF] BMI (%) 2024-07-31 15:07:00.000 29 kg/m2 Height 2024-07-31 15:07:00.000 64 [in_us] Pulse 2024-07-31 15:07:00.000 98 /min Respirations 2024-07-31 15:07:00.000 18 /min Weight (lbs) 2024-07-31 15:07:00.000 171 [lb_av] Systolic Blood Pressure 2024-07-31 15:07:00.000 122 mm [Hg] Diastolic Blood Pressure 2024-07-31 15:07:00.000 54 mm [Hg] Plan of Treatment Planned Activity Planned Date Details Comments Future Scheduled Test AGENCY MAY PERFORM A RESUMPTION OF CARE VISIT FOLLOWING ANY HOSPITAL ADMISSION. PT TO EVALUATE, OBSERVE / ASSESS, AND MONITOR, WOOD CARVING LATHE OPERATOR TO OBSERVE AND MONITOR, PROVIDE SKILLED THERAPEUTIC INTERVENTION, ACTIVITY, EDUCATION, AND TRAINING TO ADDRESS; [code = AGENCY MAY PERFORM A RESUMPTION OF CARE VISIT FOLLOWING ANY HOSPITAL ADMISSION. PT TO EVALUATE, OBSERVE / ASSESS, AND MONITOR, WOOD CARVING LATHE OPERATOR TO OBSERVE AND MONITOR, PROVIDE SKILLED THERAPEUTIC INTERVENTION, ACTIVITY, EDUCATION, AND TRAINING TO ADDRESS;] Future Scheduled Test PT/WOOD CARVING LATHE OPERATOR TO PROVIDE GAIT TRAINING FOR IMPROVED MOBILITY AND /OR TO NORMALIZE GAIT PATTERN [code = PT/WOOD CARVING LATHE OPERATOR TO PROVIDE GAIT TRAINING FOR IMPROVED MOBILITY AND /OR TO NORMALIZE GAIT PATTERN] Future Scheduled Test PT/WOOD CARVING LATHE OPERATOR TO PROVIDE STAIR TRAINING [code = PT/WOOD CARVING LATHE OPERATOR TO PROVIDE STAIR TRAINING] Future Scheduled Test PT/WOOD CARVING LATHE OPERATOR TO IDENTIFY FALL RISK FACTORS; EDUCATE THE PATIENT/CAREGIVER ON WAYS TO REDUCE FALL RISK FACTORS AND ESTABLISH HOME EXERCISE PROGRAM TO MINIMIZE FALL RISK. MAY TEACH THE PATIENT FLOOR RECOVERY WHEN CLINICALLY APPROPRIATE [code = PT/WOOD CARVING LATHE OPERATOR TO IDENTIFY FALL RISK FACTORS; EDUCATE THE PATIENT/CAREGIVER ON WAYS TO REDUCE FALL RISK FACTORS AND ESTABLISH HOME EXERCISE PROGRAM TO MINIMIZE FALL RISK. MAY TEACH THE PATIENT FLOOR RECOVERY WHEN CLINICALLY APPROPRIATE] Future Scheduled Test PT / WOOD CARVING LATHE OPERATOR T O MONITOR AND EDUCATE ON OXYGEN SATURATION DURING ADLS/IADLS, NOTIFY PHYSICIAN AND/OR THE RN CLINICAL SLOT SERVICE SPECIALIST FOR PHYSICIAN NOTIFICATION AND IF O2 SATS BELOW PHYSICIAN ORDERED PARAMETERS AFTER 10 MIN OF REST [code = PT / WOOD CARVING LATHE OPERATOR TO MONITOR AND EDUCATE ON OXYGEN SATURATION DURING ADLS/IADLS, NOTIFY PHYSICIAN AND/OR THE RN CLINICAL SLOT SERVICE SPECIALIST FOR PHYSICIAN NOTIFICATION AND IF O2 SATS BELOW PHYSICIAN ORDERED PARAMETERS AFTER 10 MIN OF REST] Future Scheduled Test PT / WOOD CARVING LATHE OPERATOR M AY EDUCATE ON PAIN MANAGEMENT CLINICALLY INDICATED, INCLUDING NON-PHARMACOLOGICAL PAIN REDUCTION TECHNIQUES AND USE OF CRYOTHERAPY UP TO 20 MIN AT A TIME FOR PAIN MANAGEMENT 4 TIMES PER DAY TO LEFT SHOULDER [code = PT / WOOD CARVING LATHE OPERATOR MAY EDUCATE ON PAIN MANAGEMENT CLINICALLY INDICATED, INCLUDING NON-PHARMACOLOGICAL PAIN REDUCTION TECHNIQUES AND USE OF CRYOTHERAPY UP TO 20 MIN AT A TIME FOR PAIN MANAGEMENT 4 TIMES PER DAY TO LEFT SHOULDER ] Future Scheduled Test PT / WOOD CARVING LATHE OPERATOR T O OBSERVE WOUND/INCISION AND/OR INTACT DRESSING ON LEFT SHOULDER AND REPORT EARLY SIGNS AND SYMPTOMS OF WOUND DETERIORATION, COMPLICATIONS, OR INFECTION TO PHYSICIAN AND/OR THE RN CLINICAL SLOT SERVICE SPECIALIST FOR PHYSICIAN NOTIFICATION. [code = PT / WOOD CARVING LATHE OPERATOR TO OBSERVE WOUND/INCISION AND/OR INTACT DRESSING ON LEFT SHOULDER AND REPORT EARLY SIGNS AND SYMPTOMS OF WOUND DETERIORATION, COMPLICATIONS, OR INFECTION TO PHYSICIAN AND/OR THE RN CLINICAL SLOT SERVICE SPECIALIST FOR PHYSICIAN NOTIFICATION.] Future Scheduled Test OCCUPATION AL THERAPIST TO EVALUATE FOR UE STRENGTH, ROM AND SAFETY WITH ADLS [code = OCCUPATIONAL THERAPIST TO EVALUATE FOR UE STRENGTH, ROM AND SAFETY WITH ADLS ] Goal Patient Goal - HEAL PROPERL Y Goal Provider Goal - Goal Provider Goal - PT LTG: PATIENT WILL DEMONSTRATE REDUCED GAIT DEVIATIONS TO REDUCE THE RISK FOR FALLING EVIDENCED BY IMPROVED HEEL STRIKE AND CONSISTENT FOOT CLEARANCE BILATERALLY WITHOUT AD TO WALK INDEPENDENTLY IN ORDER TO ACCESS ALL AREAS OF THE HOME AND TRANSPORTATION WITHIN 4 WEEKS Goal Provider Goal - PT LTG: PATIENT WILL DEMONSTRATE IMPROVED ABILITY TO SAFELY NEGOTIATE STAIRS FROM CGA TO INDEPENDENT WITH RAIL IN ORDER TO IMPROVE SAFETY WITH ENTERING AND EXITING HOME WITHIN 4 WEEKS Goal Provider Goal - PT LTG: PATIENT/CAREGIVER WILL DEMONSTRATE ADHERENCE TO FALL REDUCTION SELF-MANAGEMENT AND REDUCING FALL RISK FACTORS TO MINIMIZE FALL RISK BY END OF EPISODE. Goal Provider Goal - PT LTG: PATIENT WILL MAINTAIN OXYGEN SATURATION WITHIN PHYSICIAN ORDERED PARAMETERS THROUGHOUT EPISODE OF CARE. Goal Provider Goal - PT GOAL: PATIENT WILL DEMONSTRATE UNDERSTANDING OF PAIN MANAGEMENT TECHNIQUES EVIDENCED BY REDUCED PAIN IN LEFT SHOULDER FROM 10/10 TO 5/10 WITHIN 4 WEEKS Goal Provider Goal - PT GOAL: THE PATIENT WILL NOT DEMONSTRATE ANY WOUND COMPLICATIONS DURING THE EPISODE OF CARE. Goal Provider Goal - Encounters Start Date/Time End Date/Time Encounter Type Admission Type Attending [facility] Care Facility Care Department Encounter ID Discharge Date Discharge Status Discharge Condition Discharge Reason Percent Goals Met 2024-07-31 00:00:00 2024-09-28 00:00:00 Outpatient NEW ADMISSION KARINE WATKINS [facility] [id number]
== END 2024-08-14 12:05 | disposition home or self-care (01) ==
PROVIDERS: PCP Nurse Practitioner Family; Visit Provider Physician Assistant
DX: Z96.619 Presence of unspecified artificial shoulder joint (principal)
CPT/HCPCS: 99024

== ENCOUNTER 2024-08-14 10:57 | Outpatient (REF) | payer MEDICARE, MEDICAID, SELFPAY ==
--- NOTE | ~2024-08-14 | XR_ITS ---
EXAMINATION: XR SHOULDER 2 OR MORE VIEWS LEFT HISTORY: M25.512 - Pain in left shoulder COMPARISON: Comparison is made with the prior examination dated 07/29/2024. FINDINGS: Two views of the left shoulder are submitted. The patient is again noted to be status post reverse total shoulder arthroplasty. The orthopedic hardware is unchanged in position. There is no fracture or dislocation. The soft tissues are unremarkable. XR/XR shoulder LT min 2V IMPRESSION: Status post reverse total shoulder arthroplasty. Electronically signed by: Jason Riddle MD 08/20/2024 08:58 AM [facility] LOO
--- OUTSIDE RECORDS SUMMARY | 2024-08-15 12:48 | XMS_ITS | Clinical Summary ---
Author Organization Unknown Care Team Providers Care Exchange Teller Name Role Phone CLAUDETTE JONES, MK Unavailable Unavailable JUNE PT, KARINE Unavailable Unavailable FERNANDA TUMBLERS SUPERVISOR, JOHNNY Unavailable Unavailable SPAFFORD OT, JULIUS Unavailable Unavailable CONDINO EDEN/TAMAYO, GWEN Unavailable Unav ailable Payers Payer Name Policy Type Policy Number Effective Date Expira tion Date MEDICARE.[facility] [id number] Problems Condition Name Condition Details Condition Category Status Onset Date Resolution Date Last Treatment Date Treating Clinician Comments AFTERCARE FOLLOWING JOINT REPLACEMENT SURGERY Active 2023-08 00:00: 00 ESSENTIAL (PRIMARY) HYPERTENSION Active 2023-08 00:00: 00 TYPE 2 DIABETES MELLITUS WITHOUT COMPLICATION S Active 2023-08 00:00: 00 PURE HYPERCHOLEST EROLEMIA, UNSPECIFIED Active 2023-08 00:00: 00 PRESENCE OF LEFT ARTIFICIAL SHOULDER JOINT Active 2023-08 00:00: 00 [facility] (CURRENT) USE OF NON-STEROIDA L NON-INFLAM (NSAID) Active 2023-08 00:00: 00 LNG TR[facility] ([facility]) USE INJECTABLE NON-INSULIN ANTIDIABETIC DRUGS Active 2023-08 00:00: 00 [facility] (CURRENT) USE OF ORAL HYPOGLYCEMIC DRUGS Active 2023-08 00:00: 00 Allergies, Adverse Reactions, Alerts Allergy Name Allergy Type Status Severity Reaction(s) Onset Date Inactive Date Treating Clinician Comments NO KNOWN ALLERGIES Propensity to adverse reactions Active 2023-08 11:04: 10 Medications Ordered Medication Name Filled Medication Name Start Date Stop Date Current Medication? Ordering Clinician Indication Dosage Frequency Signature (SIG) Comments Components metformin 1,000 mg tablet 2023-08 00:00: 00 Yes [id number] DM Per instruc tions TWICE A DAY Per instructio ns TWICE A DAY (route: oral) Med Classific ation: Endocrine Mounjaro 2.5 mg/0.5 mL subcutaneou s pen injector 2023-08 00:00: 00 Yes [id number] DM Per instruc tions 25 MG SUBCUTANEO USLY EVERY WEEK Per instructio ns 25 MG SUBCUTANEO USLY EVERY WEEK (route: subcutaneo us) Med Classific ation: Endocrine OneTouch Ultra Test strips 2023-08 00:00: 00 07-31 00:00 :00 No [id number] Per instruc tions TO TEST BLOOD SUGAR ONCE DAILY Per instructio ns TO TEST BLOOD SUGAR ONCE DAILY (route: miscellane ous) Med Classific ation: Medical Supplies and Durable Medical Equipment (DME) tramadol 50 mg tablet 2023-08 00:00: 00 07-31 00:00 :00 No [id number] Per instruc tions EVERY 8 HOURS NEEDED Per instructio ns EVERY 8 HOURS NEEDED (route: oral) Med Classific ation: Analgesic , Anti-infl ammatory or Antipyret ic pantoprazol e 40 mg tablet,sae yed release 2023-08 00:00: 00 Yes [id number] GERD Per instruc tions DAILY Per instructio ns DAILY (route: oral) Med Classific ation: Gastroint estinal Therapy Agents acetaminoph en 325 mg capsule 2023-08 00:00: 00 Yes [id number] PAIN 2 capsule EVERY 6 HOURS 2 capsule EVERY 6 HOURS (route: oral) Med Classific ation: Analgesic , Anti-infl ammatory or Antipyret ic amlodipine 10 mg tablet 2023-08 00:00: 00 Yes [id number] HTN 1 tablet DAILY 1 tablet DAILY (route: oral) Med Classific ation: Cardiovas cular Therapy Agents aspirin 81 mg tablet,sae yed release 2023-08 00:00: 00 Yes [id number] ANTICOAGULA TION 1 tablet 2 TIMES DAILY 1 tablet 2 TIMES DAILY (route: oral) Med Classific ation: Hematolog ical Agents atorvastati n 40 mg tablet 2023-08 00:00: 00 Yes [id number] HLD 1 tablet BEDTIME 1 tablet BEDTIME (route: oral) Med Classific ation: Cardiovas cular Therapy Agents Celebrex 200 mg capsule 2023-08 00:00: 00 Yes [id number] ANTI INFLAMMATOR Y 1 capsule 2 TIMES DAILY 1 capsule 2 TIMES DAILY (route: oral) Med Classific ation: Analgesic , Anti-infl ammatory or Antipyret ic docusate sodium 100 mg capsule 2023-08 00:00: 00 Yes [id number] STOOL SOFTNER 1 capsule 2 TIMES DAILY 1 capsule 2 TIMES DAILY (route: oral) Med Classific ation: Gastroint estinal Therapy Agents Jardiance 25 mg tablet 2023-08 00:00: 00 Yes [id number] DM 1 tablet DAILY 1 tablet DAILY (route: oral) Med Classific ation: Endocrine lisinopril 40 mg tablet 2023-08 00:00: 00 Yes [id number] HTN 1 tablet DAILY 1 tablet DAILY (route: oral) Med Classific ation: Cardiovas cular Therapy Agents oxycodone 5 mg tablet 2023-08 00:00: 00 Yes [id number] PAIN 1 tablet EVERY 4 HOURS 1 tablet EVERY 4 HOURS (route: oral) Med Classific ation: Analgesic , Anti-infl ammatory or Antipyret ic sildenafil 100 mg tablet 2023-08 00:00: 00 Yes [id number] ERECTILE DYSFUNCTION 1 tablet NEEDED 1 tablet NEEDED (route: oral) Med Classific ation: Drugs to treat Erectile Dysfuncti on Vital Signs Vital Name Observation Time Observation [...] TO EVALUATE, OBSERVE / ASSESS, AND MONITOR, TUMBLERS SUPERVISOR TO OBSERVE AND MONITOR, PROVIDE SKILLED THERAPEUTIC INTERVENTION, ACTIVITY, EDUCATION, AND TRAINING TO ADDRESS; [code = AGENCY MAY PERFORM A RESUMPTION OF CARE VISIT FOLLOWING ANY HOSPITAL ADMISSION. PT TO EVALUATE, OBSERVE / ASSESS, AND MONITOR, TUMBLERS SUPERVISOR TO OBSERVE AND MONITOR, PROVIDE SKILLED THERAPEUTIC INTERVENTION, ACTIVITY, EDUCATION, AND TRAINING TO ADDRESS;] Future Scheduled Test PT/TUMBLERS SUPERVISOR TO PROVIDE GAIT TRAINING FOR IMPROVED MOBILITY AND /OR TO NORMALIZE GAIT PATTERN [code = PT/TUMBLERS SUPERVISOR TO PROVIDE GAIT TRAINING FOR IMPROVED MOBILITY AND /OR TO NORMALIZE GAIT PATTERN] Future Scheduled Test PT/TUMBLERS SUPERVISOR TO PROVIDE STAIR TRAINING [code = PT/TUMBLERS SUPERVISOR TO PROVIDE STAIR TRAINING] Future Scheduled Test PT/TUMBLERS SUPERVISOR TO IDENTIFY FALL RISK FACTORS; EDUCATE THE PATIENT/CAREGIVER ON WAYS TO REDUCE FALL RISK FACTORS AND ESTABLISH HOME EXERCISE PROGRAM TO MINIMIZE FALL RISK. MAY TEACH THE PATIENT FLOOR RECOVERY WHEN CLINICALLY APPROPRIATE [code = PT/TUMBLERS SUPERVISOR TO IDENTIFY FALL RISK FACTORS; EDUCATE THE PATIENT/CAREGIVER ON WAYS TO REDUCE FALL RISK FACTORS AND ESTABLISH HOME EXERCISE PROGRAM TO MINIMIZE FALL RISK. MAY TEACH THE PATIENT FLOOR RECOVERY WHEN CLINICALLY APPROPRIATE] Future Scheduled Test PT / TUMBLERS SUPERVISOR T O MONITOR AND EDUCATE ON OXYGEN SATURATION DURING ADLS/IADLS, NOTIFY PHYSICIAN AND/OR THE RN CLINICAL MATCHBOOK ASSEMBLER FOR PHYSICIAN NOTIFICATION AND IF O2 SATS BELOW PHYSICIAN ORDERED PARAMETERS AFTER 10 MIN OF REST [code = PT / TUMBLERS SUPERVISOR TO MONITOR AND EDUCATE ON OXYGEN SATURATION DURING ADLS/IADLS, NOTIFY PHYSICIAN AND/OR THE RN CLINICAL MATCHBOOK ASSEMBLER FOR PHYSICIAN NOTIFICATION AND IF O2 SATS BELOW PHYSICIAN ORDERED PARAMETERS AFTER 10 MIN OF REST] Future Scheduled Test PT / TUMBLERS SUPERVISOR M AY EDUCATE ON PAIN MANAGEMENT CLINICALLY INDICATED, INCLUDING NON-PHARMACOLOGICAL PAIN REDUCTION TECHNIQUES AND USE OF CRYOTHERAPY UP TO 20 MIN AT A TIME FOR PAIN MANAGEMENT 4 TIMES PER DAY TO LEFT SHOULDER [code = PT / TUMBLERS SUPERVISOR MAY EDUCATE ON PAIN MANAGEMENT CLINICALLY INDICATED, INCLUDING NON-PHARMACOLOGICAL PAIN REDUCTION TECHNIQUES AND USE OF CRYOTHERAPY UP TO 20 MIN AT A TIME FOR PAIN MANAGEMENT 4 TIMES PER DAY TO LEFT SHOULDER ] Future Scheduled Test PT / TUMBLERS SUPERVISOR T O OBSERVE WOUND/INCISION AND/OR INTACT DRESSING ON LEFT SHOULDER AND REPORT EARLY SIGNS AND SYMPTOMS OF WOUND DETERIORATION, COMPLICATIONS, OR INFECTION TO PHYSICIAN AND/OR THE RN CLINICAL MATCHBOOK ASSEMBLER FOR PHYSICIAN NOTIFICATION. [code = PT / TUMBLERS SUPERVISOR TO OBSERVE WOUND/INCISION AND/OR INTACT DRESSING ON LEFT SHOULDER AND REPORT EARLY SIGNS AND SYMPTOMS OF WOUND DETERIORATION, COMPLICATIONS, OR INFECTION TO PHYSICIAN AND/OR THE RN CLINICAL MATCHBOOK ASSEMBLER FOR PHYSICIAN NOTIFICATION.] Future Scheduled Test OCCUPATION [...] End Date/Time Encounter Type Admission Type Attending [facility] Care Facility Care Department Encounter ID Discharge Date Discharge Status Discharge Condition Discharge Reason Percent Goals Met 2024-07-31 00:00:00 2024-09-28 00:00:00 Outpatient NEW ADMISSION KARINE WATKINS [facility] [id number]
== END 2024-08-14 10:58 | disposition home or self-care (01) ==
LOC: HO.HOSX 10:57
PROVIDERS: Visit Provider Physician Assistant
DX: M25.512 Pain in left shoulder (principal); Z96.619 Presence of unspecified artificial shoulder joint
CPT/HCPCS: 73030; 99212

== ENCOUNTER 2024-08-18 15:20 | Outpatient (AMB) | payer MEDICARE, MEDICAID, SELFPAY ==
--- NOTE | 2024-08-18 15:23 | A.OFFPC_ITS ---
Vital Signs 08/18/24 15:24 Height 5 ft 4 in Weight 172 lb BMI 29.5 BP 110/62 Blood Pressure Location Rt brachial Position Sitting Pulse 90 Pulse Source Pulse Oximeter Pulse Oximetry (%) 93 Intake Visit Reasons: 3 month follow up Intake Note: pt is here for 3 month f/up [facility] Agent Required: No Accompanied by: Self / Same As Patient Allergies No Known Allergies Allergy (Verified 08/18/24 15:24) Medication List - Last Reconciled 08/18/24 by TED Baca acetaminophen 650 mg (2 x 325 mg) PO Q6H PRN 30 days amlodipine 10 mg PO DAILY aspirin 81 mg PO BID 42 days atorvastatin 40 mg PO BEDTIME blood sugar diagnostic ([employer] Ultra Test strips) USE TO TEST BLOOD SUGAR ONCE A DAY blood-glucose meter ([employer] Ultra2 Meter) As directed blood-glucose meter As directed celecoxib 200 mg PO BID 30 days docusate sodium 100 mg PO BID 30 days empagliflozin (Jardiance) 25 mg PO DAILY lancets ([employer] Delica Plus Lancet) Test blood sugar once a day lancing device with lancets ([employer] Delica Plus Lancing Device kit) As directed lisinopril 40 mg PO DAILY metformin 1,000 mg PO BID 90 days Mounjaro (tirzepatide) 2.5 mg (0.5 mL) subcut QWEEK NS oxycodone 10 mg PO Q4-6H PRN 7 days pantoprazole 40 mg PO BEDTIME sildenafil 100 mg PO DAILY PRN Tobacco use date assessed: 08/18/24 Fall risk assessment: No Falls in past year Last assessed Fall Risk: 08/18/24 Dental Screening Dental Screen Date: 08/18/24 Did you have a dental visit in the last 12 months?: Yes Did you have a dental problem in the last 6 months where you did not have access to dental care?: No Was dental information given to patient?: Patient has dentist HPI 3 month follow up HPI Details Chief Complaint Follow-up for diabetes management and postoperative rehabilitation. History of Present Illness The patient is a 69-year-old male presenting with a follow-up visit for the management of Type 2 Diabetes Mellitus. He reports his blood glucose levels increased during a recent hospitalization for left shoulder surgery. Currently, his glycated hemoglobin (A1c) is 7.0%. The patient denies experiencing polyuria, polydipsia, or neuropathic symptoms at present. He has been undergoing rehabilitation following his left shoulder surgery. The patient declined a foot examination during this visit. Social History Health Maintenance - Encouraged the patient to repeat his l aboratory tests for diabetes monitoring. Review of Systems - Endocrine: Denies polyuria and polydip ana. - Neurological: Denies neuropathy. Physical Exam General: Cooperative, healthy appearing, comfortable, no acute distress and well developed Orientation: Patient oriented x3 Limitations: No limitations Head: Normal to inspection Ears: Hearing grossly normal bilaterally Nose: Normal external nose present Face and sinus: Normal facial exam Eyes: Appearance normal, both eyes and all related structures Neck: Normal visual inspection and Yes full ROM Respiratory: Lungs were fairly clear, normal respiratory effort and able to speak in complete sentences. Clear to auscultation bilaterally Cardiovascular: Regular rate and rhythm. Normal S1 and S2 GI: Normal to inspection. Soft to palpation and nontender Skin: No rashes or lesions noted Neuro: Patient oriented x3 Extremities: Normal to inspection, refused foot exam today Results - Labs: Glycated hemoglobin (A1c) is 7.0 %. Plan - Monitor blood glucose levels and manag e Glycated hemoglobin A1c) to stay below target levels. - Encourage completion of laboratory mariana ts for diabetes monitoring. - Advise continued rehabilitation exerci ses for left shoulder recovery. Patient was informed and verbally consented to the use of an ambient scribe for clinic note documentation during this visit. Discussion Notes I discussed with the patient the importance of maintaining optimal glycemic control. We reviewed his recent A1c level of 7.0% and strategies to keep his blood glucose within target range. I reiterated the necessity of completing follow-up laboratory tests to monitor his diabetes. The patient was informed about the need for ongoing rehabilitation following his left shoulder surgery, which includes specific exercises to improve functionality and strength. Patient Instructions - Monitor blood glucose levels regularly . - Complete repeat laboratory tests as ad vised. - Continue prescribed rehabilitation exe rcises for the left shoulder. - Contact the clinic for any new symptom s or concerns. [facility] Medical History (Updated 08/18/24 @ 16:33 by MAXWELL Baca-) Alcohol dependence in sustained full remission GERD (gastroesophageal reflux disease) Seizures Hyperlipidemia Hypertension Diabetes type 2, controlled Surgical History History of total replacement of left shoulder joint H/O colonoscopy Hx of appendectomy H/O rotator cuff surgery History of ankle surgery Family History Father Diabetes Social History Household Members: Spouse Housing: Apartment Are you a primary adult live in caregiver to a significant other at home: No Do you presently have visiting nurse or other home services: No Alcohol intake: former Patient Tobacco Use Status: Never used Tobacco e-Cigarette/Vaping Use: Never Used service: No Current occupational status: retired Current 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 1. Little interest or pleasure in doing things: not at all 2. Feeling down, depressed, or hopeless: not at all 3. Trouble falling or staying asleep, or sleeping too much: not at all 4. Feeling tired or having little energy: not at all 5. Poor appetite or overeating: not at all 6. Feeling bad about yourself - or that you are a failure or have let yourself or your family down: not at all 7. Trouble concentrating on things, such as reading the newspaper or watching television: not at all 8. Moving or speaking so slowly that other people could have noticed. Or the opposite - being so fidgety or restless that you have been moving around a lot more than usual: not at all 9. Thoughts that you would be better off or of hurting yourself in some way: not at all Total score: 0 Depression Screening Interpretation: Negative Depression Screening Done: Yes 04781 - PHQ-9 Billing: Yes Source: Developed by Drs. Jason Donovan, Cinthia Mclean, Lester Hunt and colleagues, with an educational phyllis from [employer]. Thrive Questionnaire Date Thrive assessed: 08/18/24 I am a: Patient What is your living situation today?: I choose not to answer this question Within the past 12 months, did the food you bought not last and you didn't have the money to get more?: I choose not to answer this question Within the past 12 months, did you worry whether your food would run out before you got money to buy more?: I choose not to answer this question Do you have trouble paying for medicines?: I choose not to answer this question Do you have trouble getting transportation to medical appointments?: I choose not to answer this question Do you have trouble paying your heating and electricity bill?: I choose not to answer this question Do you have trouble taking care of your child, family member or friend?: I choose not to answer this question Do you have trouble with day-to-day activities such as bathing, preparing meals, shopping, managing finances, etc.?: I choose not to answer this question Are you currently unemployed and looking for a job?: I choose not to answer this question Are you interested in more education?: I choose not to answer this question Please select the resources that you would like help with: Food, Paying for medicine and Transportation Currently or been in a relationship where the following occur: I choose not to answer THRIVE Score: 0 AUDIT C Alcohol Use Questionnaire (AUDIT-C) 1. How often do you have a drink containing alcohol?: Never 3. How often do you have six or more drinks on one occasion?: Never Total Score: 0 Score Reviewed/Action Taken: Yes ADITI-7 AMB Questionnaire ADITI-7 Date ADITI - 7 assessed: 08/18/24 Feeling nervous, anxious, or on edge: 0 = Not at all Not being able to stop or control worryin = Not at all Worrying too much about different things: 0 = Not at all Trouble relaxin = Not at all Being so restless that it is hard to sit still: 0 = Not at all Becoming easily annoyed or irritable: 0 = Not at all Feeling afraid as if something awful might happen: 0 = Not at all Total ADITI-7 score (0-4 normal; 5-9 mild; 10-14 moderate; 15-21 severe): 0 Source: Developed by Drs. Jason Donovan, Cinthia Mclean, Lester Hunt and colleagues, with an educational phyllis from [employer]. ADITI-7 Assessment Billing ADITI-7 Assessment Tool: ADITI-7 Assessment 38477 Physical exam (Primary Care) Vital Signs: Last Vital Signs Pulse 90 08/18/24 15:24 BP 110/62 08/18/24 15:24 Pulse Ox 93 08/18/24 15:24 BMI result Body Mass Index 29.5 Tobacco/Smoking Status: Tobacco use Status Tobacco use date assessed 08/18/24 08/18/24 15:25 Patient Tobacco Use Status Never used Tobacco 08/18/24 15:25 e-Cigarette/Vaping Use Never Used 08/18/24 15:25 PHQ-9: PHQ-9 Score PHQ-9: Total score 0 08/18/24 15:25 Depression Screening Interpretation: Negative Thrive Assessment: Date of Thrive Assessment Date Thrive assessed 08/18/24 08/18/24 15:25 Currently or been in a relationship where the following occur: I choose not to answer Results AMB Hemoglobin A1c AMB Hemoglobin A1c 7.0 % Last Edit by Jordi Kaba CMA on 08/18/24 15: 47 Results Reviewed Results Reviewed: Laboratory Last Values Hgb A1c (Clinic) 7.0 % (4.0-6.0) H 08/18/24 15:35 Coding Level of Care Code Est Pt Level 3 (72309) Diagnoses Controlled type 2 diabetes mellitus without complication, without long-term current use of insulin E11.9 Diabetes mellitus fpc insulin use: without fpc use Diabetes mellitus complication status: without complication Additional Codes ADITI-7 Assessment Billing - ADITI-7 Assessment Tool: ADITI-7 Assessment 54795 ([id number]) PHQ-9 - 86376 - PHQ-9 Billing: Yes ([id number]) Assessment & Plan Assessment & Plan (1) Diabetes type 2, controlled: Code(s): E11.9 - Type 2 diabetes mellitus without complications Category: 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 History of Present Illness The patient is a 69-year-old male presenting with a follow-up visit for the management of Type 2 Diabetes Mellitus. He reports his blood glucose levels increased during a recent hospitalization for left shoulder surgery. Currently, his glycated hemoglobin (A1c) is 7.0%. The patient denies experiencing polyuria, polydipsia, or neuropathic symptoms at present. He has been undergoing rehabilitation following his left shoulder surgery. The patient declined a foot examination during this visit. Social History Health Maintenance - Encouraged the patient to repeat his laboratory tests for diabetes monitoring. Review of Systems - Endocrine: Denies polyuria and polydipsia. - Neurological: Denies neuropathy. Physical Exam General: Cooperative, healthy appearing, comfortable, no acute distress and well developed Orientation: Patient oriented x3 Limitations: No limitations Head: Normal to inspection Ears: Hearing grossly normal bilaterally Nose: Normal external nose present Face and sinus: Normal facial exam Eyes: Appearance normal, both eyes and all related structures Neck: Normal visual inspection and Yes full ROM Respiratory: Lungs were fairly clear, normal respiratory effort and able to speak in complete sentences. Clear to auscultation bilaterally Cardiovascular: Regular rate and rhythm. Normal S1 and S2 GI: Normal to inspection. Soft to palpation and nontender Skin: No rashes or lesions noted Neuro: Patient oriented x3 Extremities: Normal to inspection, refused foot exam today Results - Labs: Glycated hemoglobin (A1c) is 7.0%. Plan - Monitor blood glucose levels and manage Glycated hemoglobin A1c) to stay below target levels. - Encourage completion of laboratory tests for diabetes monitoring. - Advise continued rehabilitation exercises for left shoulder recovery. Patient was informed and verbally consented to the use of an ambient scribe for clinic note documentation during this visit. Discussion Notes I discussed with the patient the importance of maintaining optimal glycemic control. We reviewed his recent A1c level of 7.0% and strategies to keep his blood glucose within target range. I reiterated the necessity of completing follow-up laboratory tests to monitor his diabetes. The patient was informed about the need for ongoing rehabilitation following his left shoulder surgery, which includes specific exercises to improve functionality and strength. Patient Instructions - Monitor blood glucose levels regularly. - Complete repeat laboratory tests as advised. - Continue prescribed rehabilitation exercises for the left shoulder. - Contact the clinic for any new symptoms or concerns. Orders: Orders AMB Hemoglobin A1c Today Z13.9 - Encounter for screening, unspecified Medications: Changed From Mounjaro (tirzepatide) takes on Mondays 2.5 mg (0.5 mL) subcut QWEEK 2 mL 2RF NS E11.9 - Type 2 diabetes mellitus without complications To tirzepatide takes on Mondays 5 mg (0.5 mL) subcut QWEEK 2 mL 2RF E11.9 - Type 2 diabetes mellitus without complications From tirzepatide takes on Mondays 5 mg (0.5 mL) subcut QWEEK 2 mL 2RF E11.9 - Type 2 diabetes mellitus without complications To tirzepatide takes on Mondays, please fill this dose 2.5 mg (0.5 mL) subcut QWEEK 2 mL 2RF E11.9 - Type 2 diabetes mellitus without complications
[2024-08-18 15:24] VITALS: BP 110/62; PULSE 90; O2SAT 93; BMI 29.5
== END 2024-08-18 16:01 | disposition home or self-care (01) ==
PROVIDERS: PCP Nurse Practitioner Primary Care; Visit Provider Nurse Practitioner Family
DX: Z13.9 Encounter for screening, unspecified (principal); E11.9 Type 2 diabetes mellitus without complications

== ENCOUNTER → 2024-08-18 15:20 | Outpatient (BNVA) | payer MEDICARE, MEDICAID, SELFPAY | PROVIDERS: PCP Nurse Practitioner Primary Care; Visit Provider Nurse Practitioner Family | DX: E11.9 Type 2 diabetes mellitus without complications (principal) | CPT/HCPCS: 83036; 96127; 99212 ==

== ENCOUNTER 2024-08-22 08:47 | Outpatient (AMB) | payer MEDICARE, MEDICAID, SELFPAY ==
--- OUTSIDE RECORDS SUMMARY | 2024-08-22 08:50 | XMS_ITS | Clinical Summary ---
Author Organization Unknown Care Team Providers Care Sledger Name Role Phone CLAUDETTE JONES, MK Unavailable Unavailable JUNE PT, KARINE Unavailable Unavailable FERNANDA UNDERCOLLAR BASTER, JOHNNY Unavailable Unavailable SPAFFORD OT, JULIUS Unavailable Unavailable CONDINO DIRECTOR [employer]/TAMAYO, GWEN Unavailable Unav ailable Payers Payer Name Policy Type Policy Number Effective Date Expira tion Date MEDICARE.[facility] [id number] Problems Condition Name Condition Details Condition Category Status Onset Date Resolution Date Last Treatment Date Treating Clinician Comments AFTERCARE FOLLOWING JOINT REPLACEMENT SURGERY Active 2023-08 00:00: 00 ESSENTIAL (PRIMARY) HYPERTENSION Active 2023-08 00:00: 00 TYPE 2 DIABETES MELLITUS WITHOUT COMPLICATION S Active 2023-08 00:00: 00 PURE HYPERCHOLEST EROLEMIA, UNSPECIFIED Active 2023-08 00:00: 00 PRESENCE OF LEFT ARTIFICIAL SHOULDER JOINT Active 2023-08 00:00: 00 USP (CURRENT) USE OF NON-STEROIDA L NON-INFLAM (NSAID) Active 2023-08 00:00: 00 LNG TRM (CRNT) USE INJECTABLE NON-INSULIN ANTIDIABETIC DRUGS Active 2023-08 00:00: 00 USP (CURRENT) USE OF ORAL HYPOGLYCEMIC DRUGS Active [...] 1,000 mg tablet 2023-08 00:00: 00 Yes [id number] DM Per instruc tions TWICE A DAY Per instructio ns TWICE A DAY (route: oral) Med Classific ation: Endocrine Mounjaro 2.5 mg/0.5 mL subcutaneou s pen injector 2023-08 00:00: 00 Yes [id number] DM Per instruc tions 25 MG SUBCUTANEO USLY EVERY WEEK Per instructio ns 25 MG SUBCUTANEO USLY EVERY WEEK (route: subcutaneo us) Med Classific ation: Endocrine OneTouch Ultra Test strips 2023-08 00:00: 00 07-31 00:00 :00 No [id number] Per instruc tions TO TEST BLOOD SUGAR ONCE DAILY Per instructio ns TO TEST BLOOD SUGAR ONCE DAILY (route: miscellane ous) Med Classific ation: Medical Supplies and Durable Medical Equipment (DME) tramadol 50 mg tablet 2023-08 00:00: 00 07-31 00:00 :00 No [id number] Per instruc tions EVERY 8 HOURS NEEDED Per instructio ns EVERY 8 HOURS NEEDED (route: oral) Med Classific ation: Analgesic , Anti-infl ammatory or Antipyret ic pantoprazol e 40 mg tablet,sae yed release 2023-08 00:00: 00 Yes [id number] GERD Per instruc tions DAILY Per instructio ns DAILY (route: oral) Med Classific ation: Gastroint estinal Therapy Agents acetaminoph en 325 mg capsule 2023-08 00:00: 00 Yes [id number] PAIN 2 capsule EVERY 6 HOURS 2 capsule EVERY 6 HOURS (route: oral) Med Classific ation: Analgesic , Anti-infl ammatory or Antipyret ic amlodipine 10 mg tablet 2023-08 00:00: 00 Yes [id number] HTN 1 tablet DAILY 1 tablet DAILY (route: oral) Med Classific ation: Cardiovas cular Therapy Agents aspirin 81 mg tablet,sae yed release 2023-08 00:00: 00 Yes [id number] ANTICOAGULA TION 1 tablet 2 TIMES DAILY 1 tablet 2 TIMES DAILY (route: oral) Med Classific ation: Hematolog ical Agents atorvastati n 40 mg tablet 2023-08 00:00: 00 Yes [id number] HLD 1 tablet BEDTIME 1 tablet BEDTIME (route: oral) Med Classific ation: Cardiovas cular Therapy Agents Celebrex 200 mg capsule 2023-08 00:00: 00 Yes [id number] ANTI INFLAMMATOR Y 1 capsule 2 TIMES DAILY 1 capsule 2 TIMES DAILY (route: oral) Med Classific ation: Analgesic , Anti-infl ammatory or Antipyret ic docusate sodium 100 mg capsule 2023-08 00:00: 00 Yes [id number] STOOL SOFTNER 1 capsule 2 TIMES DAILY 1 capsule 2 TIMES DAILY (route: oral) Med Classific ation: Gastroint estinal Therapy Agents Jardiance 25 mg tablet 2023-08 00:00: 00 Yes [id number] DM 1 tablet DAILY 1 tablet DAILY (route: oral) Med Classific ation: Endocrine lisinopril 40 mg tablet 2023-08 00:00: 00 Yes [id number] HTN 1 tablet DAILY 1 tablet DAILY (route: oral) Med Classific ation: Cardiovas cular Therapy Agents oxycodone 5 mg tablet 2023-08 00:00: 00 Yes [id number] PAIN 1 tablet EVERY 4 HOURS 1 tablet EVERY 4 HOURS (route: oral) Med Classific ation: Analgesic , Anti-infl ammatory or Antipyret ic sildenafil 100 mg tablet 2023-08 00:00: 00 Yes [id number] ERECTILE DYSFUNCTION 1 tablet NEEDED 1 tablet [...] TO EVALUATE, OBSERVE / ASSESS, AND MONITOR, UNDERCOLLAR BASTER TO OBSERVE AND MONITOR, PROVIDE SKILLED THERAPEUTIC INTERVENTION, ACTIVITY, EDUCATION, AND TRAINING TO ADDRESS; [code = AGENCY MAY PERFORM A RESUMPTION OF CARE VISIT FOLLOWING ANY HOSPITAL ADMISSION. PT TO EVALUATE, OBSERVE / ASSESS, AND MONITOR, UNDERCOLLAR BASTER TO OBSERVE AND MONITOR, PROVIDE SKILLED THERAPEUTIC INTERVENTION, ACTIVITY, EDUCATION, AND TRAINING TO ADDRESS;] Future Scheduled Test PT/UNDERCOLLAR BASTER TO PROVIDE GAIT TRAINING FOR IMPROVED MOBILITY AND /OR TO NORMALIZE GAIT PATTERN [code = PT/UNDERCOLLAR BASTER TO PROVIDE GAIT TRAINING FOR IMPROVED MOBILITY AND /OR TO NORMALIZE GAIT PATTERN] Future Scheduled Test PT/UNDERCOLLAR BASTER TO PROVIDE STAIR TRAINING [code = PT/UNDERCOLLAR BASTER TO PROVIDE STAIR TRAINING] Future Scheduled Test PT/UNDERCOLLAR BASTER TO IDENTIFY FALL RISK FACTORS; EDUCATE THE PATIENT/CAREGIVER ON WAYS TO REDUCE FALL RISK FACTORS AND ESTABLISH HOME EXERCISE PROGRAM TO MINIMIZE FALL RISK. MAY TEACH THE PATIENT FLOOR RECOVERY WHEN CLINICALLY APPROPRIATE [code = PT/UNDERCOLLAR BASTER TO IDENTIFY FALL RISK FACTORS; EDUCATE THE PATIENT/CAREGIVER ON WAYS TO REDUCE FALL RISK FACTORS AND ESTABLISH HOME EXERCISE PROGRAM TO MINIMIZE FALL RISK. MAY TEACH THE PATIENT FLOOR RECOVERY WHEN CLINICALLY APPROPRIATE] Future Scheduled Test PT / UNDERCOLLAR BASTER T O MONITOR AND EDUCATE ON OXYGEN SATURATION DURING ADLS/IADLS, NOTIFY PHYSICIAN AND/OR THE RN CLINICAL ADJUNCT PROFESSOR FOR PHYSICIAN NOTIFICATION AND IF O2 SATS BELOW PHYSICIAN ORDERED PARAMETERS AFTER 10 MIN OF REST [code = PT / UNDERCOLLAR BASTER TO MONITOR AND EDUCATE ON OXYGEN SATURATION DURING ADLS/IADLS, NOTIFY PHYSICIAN AND/OR THE RN CLINICAL ADJUNCT PROFESSOR FOR PHYSICIAN NOTIFICATION AND IF O2 SATS BELOW PHYSICIAN ORDERED PARAMETERS AFTER 10 MIN OF REST] Future Scheduled Test PT / UNDERCOLLAR BASTER M AY EDUCATE ON PAIN MANAGEMENT CLINICALLY INDICATED, INCLUDING NON-PHARMACOLOGICAL PAIN REDUCTION TECHNIQUES AND USE OF CRYOTHERAPY UP TO 20 MIN AT A TIME FOR PAIN MANAGEMENT 4 TIMES PER DAY TO LEFT SHOULDER [code = PT / UNDERCOLLAR BASTER MAY EDUCATE ON PAIN MANAGEMENT CLINICALLY INDICATED, INCLUDING NON-PHARMACOLOGICAL PAIN REDUCTION TECHNIQUES AND USE OF CRYOTHERAPY UP TO 20 MIN AT A TIME FOR PAIN MANAGEMENT 4 TIMES PER DAY TO LEFT SHOULDER ] Future Scheduled Test PT / UNDERCOLLAR BASTER T O OBSERVE WOUND/INCISION AND/OR INTACT DRESSING ON LEFT SHOULDER AND REPORT EARLY SIGNS AND SYMPTOMS OF WOUND DETERIORATION, COMPLICATIONS, OR INFECTION TO PHYSICIAN AND/OR THE RN CLINICAL ADJUNCT PROFESSOR FOR PHYSICIAN NOTIFICATION. [code = PT / UNDERCOLLAR BASTER TO OBSERVE WOUND/INCISION AND/OR INTACT DRESSING ON LEFT SHOULDER AND REPORT EARLY SIGNS AND SYMPTOMS OF WOUND DETERIORATION, COMPLICATIONS, OR INFECTION TO PHYSICIAN AND/OR THE RN CLINICAL ADJUNCT PROFESSOR FOR PHYSICIAN NOTIFICATION.] Future Scheduled Test OCCUPATION [...] End Date/Time Encounter Type Admission Type Attending [facility] Care Facility Care Department Encounter ID Discharge Date Discharge Status Discharge Condition Discharge Reason Percent Goals Met 2024-07-31 00:00:00 2024-09-28 00:00:00 Outpatient NEW ADMISSION KARINE WATKINS [facility] [id number]
--- NOTE | 2024-08-22 08:51 | MHC.OFFVIS ---
Intake Visit Reasons: PO-LT Reverse TSA 07/29/24 Intake Note: Jose is a 69 year old male who presents today for a post operative LT TSA, DOS 07/29/24. Patient reports a tender hard lump located at the distal medial aspect of the humerus. He was seen by his PCP who suggest he hold off on PT and follow up with orthopedic. Denies injury. Allergies No Known Allergies Allergy (Verified 08/22/24 08:57) Medication List - Last Reconciled 08/22/24 by Sandip Garvey PA-C acetaminophen 650 mg (2 x 325 mg) PO Q6H PRN 30 days amlodipine 10 mg PO DAILY aspirin 81 mg PO BID 42 days atorvastatin 40 mg PO BEDTIME blood sugar diagnostic ([employer] Ultra Test strips) USE TO TEST BLOOD SUGAR ONCE A DAY blood-glucose meter (Card [employer] Ultra2 Meter) As directed blood-glucose meter As directed celecoxib 200 mg PO BID 30 days docusate sodium 100 mg PO BID 30 days empagliflozin (Jardiance) 25 mg PO DAILY lancets ([employer] Delica Plus Lancet) Test blood sugar once a day lancing device with lancets ([employer] Delica Plus Lancing Device kit) As directed lisinopril 40 mg PO DAILY metformin 1,000 mg PO BID 90 days oxycodone 10 mg PO Q6H PRN 7 days pantoprazole 40 mg PO BEDTIME sildenafil 100 mg PO DAILY PRN tirzepatide 2.5 mg (0.5 mL) subcut QWEEK HPI HPI PO-LT Reverse TSA 07/29/24: Details: 69-year-old gentleman returns to the office today 3 weeks status post left reverse total shoulder 07/[address] Long. He has some concern with the lump in his left arm. No new injuries. [facility] Medical History (Updated 08/18/24 @ 16:33 by Alexandre Mccabe, MAXWELL-) Alcohol dependence in sustained full remission GERD (gastroesophageal reflux disease) Seizures Hyperlipidemia Hypertension Diabetes type 2, controlled Surgical History History of total replacement of left shoulder joint H/O colonoscopy Hx of appendectomy H/O rotator cuff surgery History of ankle surgery Family History Father Diabetes Social History Household Members: Spouse Housing: Apartment Are you a primary personal care home administrator to a significant other at home: No Do you presently have visiting nurse or other home services: No Alcohol intake: former Patient Tobacco Use Status: Never used Tobacco e-Cigarette/Vaping Use: Never Used service: No Current occupational status: retired Current occupation: left hand dominant Current occupational exposures/hazards: No Cognitive needs: No Hearing needs: No Vision needs: Yes Review of Systems Const All systems reviewed & are unremarkable except as noted in HPI and below Physical Exam Extrem Other: Left shoulder incision clean dry and intact. No erythema. No drainage. He does have a hematoma along the inside of humerus region. Assessment & Plan Assessment & Plan (1) History of reverse total replacement of shoulder joint: Code(s): Z96.619 - Presence of unspecified artificial shoulder joint Category: Surgical Plan: Dr. Long was available to see the patient with me today. Reassurance given this is a hematoma and he should begin physical therapy to work on range of motion and periscapular stabilization/partial training. He will see us back on September 04 for his routine 6 week postop appointment. Coding Level of Care Code Global (89646) Diagnoses History of reverse total replacement of shoulder joint Z96.619
--- OUTSIDE RECORDS SUMMARY | 2024-08-22 08:51 | XMS_ITS | Clinical Summary ---
Author Organization Unknown Care Team Providers Care Fleecer Name Role Phone CLAUDETTE JONES, MK Unavailable Unavailable JUNE PT, KARINE Unavailable Unavailable FERNANDA LOADING UNIT OPERATOR CRIMPING, JOHNNY Unavailable Unavailable SPAFFORD OT, JULIUS Unavailable Unavailable CONDINO FURNACE MAINTENANCE/TAMAYO, GWEN Unavailable Unav ailable Payers Payer Name Policy Type Policy Number Effective Date Expira tion Date MEDICARE.[facility] [id number] Problems Condition Name Condition Details Condition Category Status Onset Date Resolution Date Last Treatment Date Treating Clinician Comments AFTERCARE FOLLOWING JOINT REPLACEMENT SURGERY Active 2023-08 00:00: 00 ESSENTIAL (PRIMARY) HYPERTENSION Active 2023-08 00:00: 00 TYPE 2 DIABETES MELLITUS WITHOUT COMPLICATION S Active 2023-08 00:00: 00 PURE HYPERCHOLEST EROLEMIA, UNSPECIFIED Active 2023-08 00:00: 00 PRESENCE OF LEFT ARTIFICIAL SHOULDER JOINT Active 2023-08 00:00: 00 SENIOR LIVING (CURRENT) USE OF NON-STEROIDA L NON-INFLAM (NSAID) Active 2023-08 00:00: 00 LNG TRM (CRNT) USE INJECTABLE NON-INSULIN ANTIDIABETIC DRUGS Active 2023-08 00:00: 00 SENIOR LIVING (CURRENT) USE OF ORAL HYPOGLYCEMIC DRUGS Active [...] 1,000 mg tablet 2023-08 00:00: 00 Yes [id number] DM Per instruc tions TWICE A DAY Per instructio ns TWICE A DAY (route: oral) Med Classific ation: Endocrine Mounjaro 2.5 mg/0.5 mL subcutaneou s pen injector 2023-08 00:00: 00 Yes [id number] DM Per instruc tions 25 MG SUBCUTANEO USLY EVERY WEEK Per instructio ns 25 MG SUBCUTANEO USLY EVERY WEEK (route: subcutaneo us) Med Classific ation: Endocrine OneTouch Ultra Test strips 2023-08 00:00: 00 07-31 00:00 :00 No [id number] Per instruc tions TO TEST BLOOD SUGAR ONCE DAILY Per instructio ns TO TEST BLOOD SUGAR ONCE DAILY (route: miscellane ous) Med Classific ation: Medical Supplies and Durable Medical Equipment (DME) tramadol 50 mg tablet 2023-08 00:00: 00 07-31 00:00 :00 No [id number] Per instruc tions EVERY 8 HOURS NEEDED Per instructio ns EVERY 8 HOURS NEEDED (route: oral) Med Classific ation: Analgesic , Anti-infl ammatory or Antipyret ic pantoprazol e 40 mg tablet,sae yed release 2023-08 00:00: 00 Yes [id number] GERD Per instruc tions DAILY Per instructio ns DAILY (route: oral) Med Classific ation: Gastroint estinal Therapy Agents acetaminoph en 325 mg capsule 2023-08 00:00: 00 Yes [id number] PAIN 2 capsule EVERY 6 HOURS 2 capsule EVERY 6 HOURS (route: oral) Med Classific ation: Analgesic , Anti-infl ammatory or Antipyret ic amlodipine 10 mg tablet 2023-08 00:00: 00 Yes [id number] HTN 1 tablet DAILY 1 tablet DAILY (route: oral) Med Classific ation: Cardiovas cular Therapy Agents aspirin 81 mg tablet,sae yed release 2023-08 00:00: 00 Yes [id number] ANTICOAGULA TION 1 tablet 2 TIMES DAILY 1 tablet 2 TIMES DAILY (route: oral) Med Classific ation: Hematolog ical Agents atorvastati n 40 mg tablet 2023-08 00:00: 00 Yes [id number] HLD 1 tablet BEDTIME 1 tablet BEDTIME (route: oral) Med Classific ation: Cardiovas cular Therapy Agents Celebrex 200 mg capsule 2023-08 00:00: 00 Yes [id number] ANTI INFLAMMATOR Y 1 capsule 2 TIMES DAILY 1 capsule 2 TIMES DAILY (route: oral) Med Classific ation: Analgesic , Anti-infl ammatory or Antipyret ic docusate sodium 100 mg capsule 2023-08 00:00: 00 Yes [id number] STOOL SOFTNER 1 capsule 2 TIMES DAILY 1 capsule 2 TIMES DAILY (route: oral) Med Classific ation: Gastroint estinal Therapy Agents Jardiance 25 mg tablet 2023-08 00:00: 00 Yes [id number] DM 1 tablet DAILY 1 tablet DAILY (route: oral) Med Classific ation: Endocrine lisinopril 40 mg tablet 2023-08 00:00: 00 Yes [id number] HTN 1 tablet DAILY 1 tablet DAILY (route: oral) Med Classific ation: Cardiovas cular Therapy Agents oxycodone 5 mg tablet 2023-08 00:00: 00 Yes [id number] PAIN 1 tablet EVERY 4 HOURS 1 tablet EVERY 4 HOURS (route: oral) Med Classific ation: Analgesic , Anti-infl ammatory or Antipyret ic sildenafil 100 mg tablet 2023-08 00:00: 00 Yes [id number] ERECTILE DYSFUNCTION 1 tablet NEEDED 1 tablet [...] TO EVALUATE, OBSERVE / ASSESS, AND MONITOR, LOADING UNIT OPERATOR CRIMPING TO OBSERVE AND MONITOR, PROVIDE SKILLED THERAPEUTIC INTERVENTION, ACTIVITY, EDUCATION, AND TRAINING TO ADDRESS; [code = AGENCY MAY PERFORM A RESUMPTION OF CARE VISIT FOLLOWING ANY HOSPITAL ADMISSION. PT TO EVALUATE, OBSERVE / ASSESS, AND MONITOR, LOADING UNIT OPERATOR CRIMPING TO OBSERVE AND MONITOR, PROVIDE SKILLED THERAPEUTIC INTERVENTION, ACTIVITY, EDUCATION, AND TRAINING TO ADDRESS;] Future Scheduled Test PT/LOADING UNIT OPERATOR CRIMPING TO PROVIDE GAIT TRAINING FOR IMPROVED MOBILITY AND /OR TO NORMALIZE GAIT PATTERN [code = PT/LOADING UNIT OPERATOR CRIMPING TO PROVIDE GAIT TRAINING FOR IMPROVED MOBILITY AND /OR TO NORMALIZE GAIT PATTERN] Future Scheduled Test PT/LOADING UNIT OPERATOR CRIMPING TO PROVIDE STAIR TRAINING [code = PT/LOADING UNIT OPERATOR CRIMPING TO PROVIDE STAIR TRAINING] Future Scheduled Test PT/LOADING UNIT OPERATOR CRIMPING TO IDENTIFY FALL RISK FACTORS; EDUCATE THE PATIENT/CAREGIVER ON WAYS TO REDUCE FALL RISK FACTORS AND ESTABLISH HOME EXERCISE PROGRAM TO MINIMIZE FALL RISK. MAY TEACH THE PATIENT FLOOR RECOVERY WHEN CLINICALLY APPROPRIATE [code = PT/LOADING UNIT OPERATOR CRIMPING TO IDENTIFY FALL RISK FACTORS; EDUCATE THE PATIENT/CAREGIVER ON WAYS TO REDUCE FALL RISK FACTORS AND ESTABLISH HOME EXERCISE PROGRAM TO MINIMIZE FALL RISK. MAY TEACH THE PATIENT FLOOR RECOVERY WHEN CLINICALLY APPROPRIATE] Future Scheduled Test PT / LOADING UNIT OPERATOR CRIMPING T O MONITOR AND EDUCATE ON OXYGEN SATURATION DURING ADLS/IADLS, NOTIFY PHYSICIAN AND/OR THE RN CLINICAL FOUNDRY OPERATOR FOR PHYSICIAN NOTIFICATION AND IF O2 SATS BELOW PHYSICIAN ORDERED PARAMETERS AFTER 10 MIN OF REST [code = PT / LOADING UNIT OPERATOR CRIMPING TO MONITOR AND EDUCATE ON OXYGEN SATURATION DURING ADLS/IADLS, NOTIFY PHYSICIAN AND/OR THE RN CLINICAL FOUNDRY OPERATOR FOR PHYSICIAN NOTIFICATION AND IF O2 SATS BELOW PHYSICIAN ORDERED PARAMETERS AFTER 10 MIN OF REST] Future Scheduled Test PT / LOADING UNIT OPERATOR CRIMPING M AY EDUCATE ON PAIN MANAGEMENT CLINICALLY INDICATED, INCLUDING NON-PHARMACOLOGICAL PAIN REDUCTION TECHNIQUES AND USE OF CRYOTHERAPY UP TO 20 MIN AT A TIME FOR PAIN MANAGEMENT 4 TIMES PER DAY TO LEFT SHOULDER [code = PT / LOADING UNIT OPERATOR CRIMPING MAY EDUCATE ON PAIN MANAGEMENT CLINICALLY INDICATED, INCLUDING NON-PHARMACOLOGICAL PAIN REDUCTION TECHNIQUES AND USE OF CRYOTHERAPY UP TO 20 MIN AT A TIME FOR PAIN MANAGEMENT 4 TIMES PER DAY TO LEFT SHOULDER ] Future Scheduled Test PT / LOADING UNIT OPERATOR CRIMPING T O OBSERVE WOUND/INCISION AND/OR INTACT DRESSING ON LEFT SHOULDER AND REPORT EARLY SIGNS AND SYMPTOMS OF WOUND DETERIORATION, COMPLICATIONS, OR INFECTION TO PHYSICIAN AND/OR THE RN CLINICAL FOUNDRY OPERATOR FOR PHYSICIAN NOTIFICATION. [code = PT / LOADING UNIT OPERATOR CRIMPING TO OBSERVE WOUND/INCISION AND/OR INTACT DRESSING ON LEFT SHOULDER AND REPORT EARLY SIGNS AND SYMPTOMS OF WOUND DETERIORATION, COMPLICATIONS, OR INFECTION TO PHYSICIAN AND/OR THE RN CLINICAL FOUNDRY OPERATOR FOR PHYSICIAN NOTIFICATION.] Future Scheduled Test OCCUPATION [...] Date/Time Encounter Type Admission Type Attending [facility] Care Facility Care Department Encounter ID Discharge Date Discharge Status Discharge Condition Discharge Reason Percent Goals Met 2024-07-31 00:00:00 2024-09-28 00:00:00 Outpatient NEW ADMISSION [facility] [id number]
== END 2024-08-22 09:18 | disposition home or self-care (01) ==
PROVIDERS: Visit Provider Physician Assistant
DX: Z96.619 Presence of unspecified artificial shoulder joint (principal)
CPT/HCPCS: 99024

== ENCOUNTER → 2024-08-22 08:47 | Outpatient (BNVA) | payer MEDICARE, MEDICAID, SELFPAY | PROVIDERS: Visit Provider Physician Assistant | DX: Z47.1 Aftercare following joint replacement surgery (principal); Z96.612 Presence of left artificial shoulder joint | CPT/HCPCS: 99212 ==

== ENCOUNTER 2024-09-04 10:24 | Outpatient (AMB) | payer MEDICARE, MEDICAID, SELFPAY ==
[2024-09-04 10:42] VITALS: BMI 29.5
--- NOTE | 2024-09-04 10:42 | MHC.OFFVIS ---
Vital Signs 09/04/24 10:42 Height 5 ft 4 in Weight 172 lb BMI 29.5 Intake Visit Reasons: PO - Left Reverse TSA w/NE 07/29/24 Intake Note: Jose is a 69 year old left hand dominant male who presents today for a six week post operative appointment s/p Left TSA 07/29/2024. At his last visit he expressed concerns of a hard palpable mass at the medial aspect of the elbow which was determined to be a hematoma. Patient reports that he is having continued pain, he is taking the Oxycodone 10mg for his pain . He was just weaned to 5 mg but he explains that he wishes he didnt. His pain is limiting his ability to sleep at night He is working with home therapy, and cannot start outpatient PT until he is discharged from home PT. Allergies No Known Allergies Allergy (Verified 09/04/24 10:58) HPI HPI PO - Left Reverse TSA w/NE 07/29/24: Details: Jose is a 69 year old left hand dominant male who presents today for a six week post operative appointment s/p Left TSA 07/29/2024. At his last visit he expressed concerns of a hard palpable mass at the medial aspect of the elbow which was determined to be a hematoma. Patient reports that he is having continued pain, he is taking the Oxycodone 10mg for his pain . He was just weaned to 5 mg but he explains that he wishes he didnt. His pain is limiting his ability to sleep at night. He is working with home therapy, and cannot start outpatient PT until he is discharged from home PT. [facility] Medical History (Updated 08/18/24 @ 16:33 by Alexandre Mccabe [facility]) Alcohol dependence in sustained full remission GERD (gastroesophageal reflux disease) Seizures Hyperlipidemia Hypertension Diabetes type 2, controlled Surgical History History of total replacement of left shoulder joint H/O colonoscopy Hx of appendectomy H/O rotator cuff surgery History of ankle surgery Family History Father Diabetes Social History Household Members: Spouse Housing: Apartment Are you a primary ambulatory care coordinator to a significant other at home: No Do you presently have visiting nurse or other home services: No Alcohol intake: former Patient Tobacco Use Status: Never used Tobacco e-Cigarette/Vaping Use: Never Used service: No Current occupational status: retired Current occupation: left hand dominant Current occupational exposures/hazards: No Cognitive needs: No Hearing needs: No Vision needs: Yes Physical Exam Vital Signs: BMI result Body Mass Index 29.5 Extrem Other: 20 degrees external rotation 60 degrees abduction Incision clean dry and intact Deltoid firing Results Reviewed Results Reviewed: I personally reviewed relevant radiographs. Right TSA in expected post operative position with no hardware complications or evidence of loosening Assessment & Plan Assessment & Plan (1) History of reverse total replacement of shoulder joint: Code(s): Z96.619 - Presence of unspecified artificial shoulder joint Category: Surgical Plan Doing well but still has not started outpatient physical therapy. He is due to start next week. Follow up 6 weeks continue exercise program. Instructed him on motions to avoid. Orders: Orders XR shoulder LT min 2V Today M25.519 - Pain in unspecified shoulder Coding Level of Care Code Global (29516) Diagnoses History of reverse total replacement of shoulder joint Z96.619
== END 2024-09-04 11:21 | disposition home or self-care (01) ==
PROVIDERS: PCP Nurse Practitioner Family; Visit Provider Orthopaedic Surgery
DX: Z96.619 Presence of unspecified artificial shoulder joint (principal)
CPT/HCPCS: 99024

== ENCOUNTER 2024-09-04 10:24 | Outpatient (REF) | payer MEDICARE, MEDICAID, SELFPAY ==
--- NOTE | ~2024-09-04 | XR_ITS ---
EXAMINATION: XR SHOULDER 2 OR MORE VIEWS LEFT HISTORY: M25.519 - Pain in unspecified shoulder COMPARISON: Comparison is made with the prior examination dated 08/14/2024. FINDINGS: Two views of the left shoulder are submitted. The patient is again noted to be status post reverse left shoulder arthroplasty. The orthopedic elements are in anatomic alignment. There is no radiographic evidence of loosening. There is no fracture or dislocation. The soft tissues are unremarkable. XR/XR shoulder LT min 2V IMPRESSION: Status post reverse left shoulder arthroplasty without change. Electronically signed by: Jason Riddle MD 09/04/2024 03:55 PM [facility]
== END 2024-09-04 10:25 | disposition home or self-care (01) ==
LOC: HO.HOSX 10:24
PROVIDERS: PCP Nurse Practitioner Family; Visit Provider Orthopaedic Surgery
DX: M25.512 Pain in left shoulder (principal); Z96.612 Presence of left artificial shoulder joint
CPT/HCPCS: 73030; 99212

== ENCOUNTER 2024-10-16 09:24 | Outpatient (AMB) | payer MEDICARE, MEDICAID, SELFPAY ==
--- NOTE | 2024-10-16 09:45 | A.OFFVIS_ITS ---
Intake Visit Reasons: PO -Left Reverse TSA w/NE 07/29/24 Intake Note: Jose is a 69 year old male who presents today for a post operative appointment about 3months s/p Left Reverse TSA 07/29/24. Patient reports that he is doing better, he continues to have pain. He has pain with any movement of the arm. He uses Ice and Heat application which does feel nice. He was cancelled with Physical Therapy - due to insurance. He is asking for a refill of his oxycodone and is requesting a month supply as he is going on a vacation. Allergies No Known Allergies Allergy (Verified 09/04/24 10:58) HPI HPI PO -Left Reverse TSA w/NE 07/29/24: Details: Jose is a 69 year old male who presents today for a post operative appointment about 3months s/p Left Reverse TSA 07/29/24. Patient reports that he is doing better, he continues to have pain. He has pain with any movement of the arm. He uses Ice and Heat application which does feel nice. He was cancelled with Physical Therapy - due to insurance. He is asking for a refill of his oxycodone and is requesting a month supply as he is going on a vacation. [facility] Medical History (Updated 08/18/24 @ 16:33 by [facility]) Alcohol dependence in sustained full remission GERD (gastroesophageal reflux disease) Seizures Hyperlipidemia Hypertension Diabetes type 2, controlled Surgical History History of total replacement of left shoulder joint H/O colonoscopy Hx of appendectomy H/O rotator cuff surgery History of ankle surgery Family History Father Diabetes Social History Household Members: Spouse Housing: Apartment Are you a primary home care consultant to a significant other at home: No Do you presently have visiting nurse or other home services: No Alcohol intake: former Patient Tobacco Use Status: Never used Tobacco e-Cigarette/Vaping Use: Never Used service: No Current occupational status: retired Current occupation: left hand dominant Current occupational exposures/hazards: No Cognitive needs: No Hearing needs: No Vision needs: Yes Physical Exam Extrem Other: active: 20/60/100 passive: 30/80/120 Deltoid intact Results Reviewed Results Reviewed: I personally reviewed relevant radiographs. left reverse total shoulder arthroplasty in expected post operative position with no hardware complications or evidence of loosening Assessment & Plan Assessment & Plan (1) History of reverse total replacement of shoulder joint: Code(s): Z96.619 - Presence of unspecified artificial shoulder joint Category: Surgical Plan: Continuing to improrve. Weaning narcotics. last rx written. taught HEP f/u 2 mo Orders: Orders XR shoulder LT min 2V 10/16/24 M25.519 - Pain in unspecified shoulder Medications: New oxycodone Partial Fill upon patient request. 5 mg PO BID PRN 30 tabs 0RF pain Coding Level of Care Code Global (60163) Diagnoses History of reverse total replacement of shoulder joint Z96.619
== END 2024-10-16 10:09 | disposition home or self-care (01) ==
PROVIDERS: PCP Nurse Practitioner Family; Visit Provider Orthopaedic Surgery
DX: Z96.619 Presence of unspecified artificial shoulder joint (principal)
CPT/HCPCS: 99024

== ENCOUNTER 2024-10-16 09:24 | Outpatient (REF) | payer MEDICARE, MEDICAID, SELFPAY ==
--- NOTE | ~2024-10-16 | XR_ITS ---
EXAMINATION: XR SHOULDER, LEFT CLINICAL INFORMATION: M25.519 - Pain in unspecified shoulder COMPARISON: None available. TECHNIQUE: AP external rotation, Grashey, scapular Y, and axillary views of the left shoulder. FINDINGS: A total left shoulder reversed prosthesis with the prosthetic components in satisfactory alignment. No prosthetic loosening seen. Mild periocular spurring AC joint. The soft tissues are normal. XR/XR shoulder LT min 2V IMPRESSION: Total left shoulder there is prosthesis in alignment. No evidence of hardware loosening. No fracture. No soft tissue abnormality. Electronically signed by: Richard Dailey MD 10/16/2024 10:01 AM ARRON
--- OUTSIDE RECORDS SUMMARY | 2024-10-16 10:52 | XMS_ITS | Encounter Summary ---
Author Organization [employer] Address [address] [place] [address] [address] [place] [address] Care Team Providers Care Correction [facility] Name Role Phone Constance Zamarripa MD Primary Care Provider [phone] Reason for Visit * Reason Comments Med Refill Encounter Details Date Type Department Care Team (Late st Contact Info) Description 09/24/[address] [facility] MEDICAL [address] [place] [id number] Constance Zamarripa MD [address] [place] [address] Essential (primary) hypertension Social History Tobacco Use Types Packs/Day Years Used Date Smoking Tobacco: Former Cigarettes Sex and Gender Information Value Date Recorded Sex Assigned at Male 06/15/2022 9:08 AM EDT Legal Sex Male 8:40 PM EDT Gender Identity Male 09/15/2022 10:21 AM EST Sexual Orientation Don't know 09/15/2022 10 :21 AM EST documented as of this encounter Plan of Treatment Not on file documented as of this encounter Visit Diagnoses Diagnosis Essential (primary) hypertension Unspecified essential hypertension documented in this encounter Care Teams [facility] Relationship Specialty Start Date End Date Constance Zamarripa MD [address] [place] [address] PCP - General Family Medicine 09/14/22 documented as of this encounter
--- OUTSIDE RECORDS SUMMARY | 2024-10-16 10:52 | XMS_ITS | Clinical Summary ---
Author Organization [employer] Address [address] [place] [address] 7 [place] [address] Care Team Providers Care Crib Tender Name Role Phone Constance Zamarripa MD Primary Care Provider [phone] Allergies No known active allergies Medications Januvia 100 MG tablet Take 100 mg by mouth in the morning. 06/14/20 22 Active doxepin (SINEquan) 10 MG capsuleIndication s:Primary insomnia Take 1 capsule (10 mg) by mouth at bedtime. 90 capsule 3 01/02/20 23 Active sildenafil (Viagra) 100 MG tabletIndications :Erectile disorder due to medical condition in male patient Take 1 tablet (100 mg) by mouth in the morning. 10 tablet 11 02/23/20 23 Active amLODIPine (Norvasc) 5 MG tabletIndications :Essential (primary) hypertension TAKE 1 TABLET BY MOUTH EVERY DAY IN THE MORNING 90 tablet 1 03/16/20 23 Active Januvia 100 MG tabletIndications :Type 2 diabetes mellitus without complications (CMS/HCC) TAKE 1 TABLET BY MOUTH EVERY DAY IN THE MORNING 90 tablet 3 07/26/20 23 Active atorvastatin (Lipitor) 40 MG tabletIndications :Type 2 diabetes mellitus without complications (CMS/HCC) TAKE 1 TABLET BY MOUTH EVERY DAY 90 tablet 3 02/11/20 24 Active metFORMIN (Glucophage) 1000 MG tabletIndications :Type 2 diabetes mellitus without complications (CMS/HCC) TAKE 1 TABLET BY MOUTH TWICE A DAY WITH FOOD 180 tablet 04/25/20 24 Active pantoprazole (ProtoNix) 40 MG EC tabletIndications :Gastro-esophagea l reflux disease without esophagitis TAKE 1 TABLET (40 MG) BY MOUTH DAILY BEFORE BREAKFAST. 90 tablet 3 06/25/20 24 Active lisinopril 40 MG tabletIndications :Essential (primary) hypertension TAKE 1 TABLET BY MOUTH EVERY DAY IN THE MORNING 90 tablet 3 09/24/19 25 Active lisinopril 40 MG tabletIndications :Essential (primary) hypertension TAKE 1 TABLET BY MOUTH EVERY DAY IN THE MORNING 90 tablet 3 09/18/19 24 025 Discontinued Active Problems Problem Noted Date Diagnosed Date Diabetes mellitus type II, non insulin dependent 09/15/2022 Erectile disorder due to medical condition in pa le patient 09/15/2022 Essential (primary) hypertension 09/15/2022 GERD without esophagitis 09/15/2022 Encounters Date Type Department Care Team Description 09/24/2024 Refill [facility] [address] [place] [id number] Constance Zamarripa MD Essential (primary) hypertension from Last 3 Months Social History Tobacco Use Types Packs/Day Years Used Date Smoking Tobacco: Former Cigarettes Tobacco Cessation:Counseling Given: Not Answered Sex and Gender Information Value Date Recorded Sex Assigned at Male 06/15/2022 9:08 AM EDT Legal Sex Male 8:40 PM EDT Gender Identity Male 09/15/2022 10:21 AM EST Sexual Orientation Don't know 09/15/2022 10 :21 AM EST Last Filed Vital Signs Vital Sign Reading Time Taken Comments Blood Pressure 162/92 12/06/2022 10:36 AM EDT Pulse 116 12/06/2022 10:36 AM EDT Temperature 36.4 ??C (97.6 ??F) 12/06/2022 10:36 AM E DT Respiratory Rate 16 12/06/2022 10:36 AM EDT Oxygen Saturation 97% 06/14/2022 9:30 AM EDT Inhaled Oxygen Concentration - - Weight 81.2 kg (179 lb) 12/06/2022 10:36 AM EDT Height 162.6 cm (5' 4 ) 12/06/2022 10:36 AM EDT Body Mass Index 30.73 12/06/2022 10:36 AM EDT Plan of Treatment Health Maintenance Due Date Last Done Comments CT Colonography 1953 Colonoscopy 1953 Colorectal Cancer Screening 1953 Depression Screening 1953 FIT DNA/Cologuard 1953 FIT 1953 FOBT 1953 Lipid Panel 1953 SDOH Screening 1953 Sigmoidoscopy 1953 Diabetes: Foot Exam 1963 Eye Exam 1963 Alcohol/Substance Use Screening 1965 Hepatitis C Screening 1971 Diabetes: Urine Protein Screening 02/11/1972 Zoster Vaccines (1 of 2) 2003 Pneumococcal Vaccine: 50+ Years (2 of 2 - PCV) 11/03/2020 11/04/2019 Diabetes: Hemoglobin A1C 09/14/2022 06/14/2022 Tobacco Screening 12/07/2023 12/06/2022 COVID-19 Vaccine ( season) 2024 08/29/2021, 02/05/2021, 01/12/2021 Influenza Vaccine (#1) 2024 2, 07/11/2021, 07/21/2020, Additional history exists RSV Patients and Patients Aged 60 years or older (1 - 1-dose 75+ series) 02/11/2028 DTaP/Tdap/Td Vaccines (2 - Td or Tdap) 11/03/2029 11/04/2019, 08/13/2008 HIB Vaccines Aged Out No longer eligi ble based on patient's age to complete this topic HPV Vaccines Aged Out No longer eligi ble based on patient's age to complete this topic Hepatitis A Vaccines Aged Out No long er eligible based on patient's age to complete this topic Hepatitis B Vaccines Aged Out No long er eligible based on patient's age to complete this topic IPV Vaccines Aged Out No longer eligi ble based on patient's age to complete this topic Meningococcal Vaccine Aged Out No chanda sandip eligible based on patient's age to complete this topic RSV under 20 months Aged Out No longe r eligible based on patient's age to complete this topic Rotavirus Vaccines Aged Out No longer eligible based on patient's age to complete this topic Procedures Procedure Name Priority Date/Time Associated Diagnosis Comments HEMOGLOBIN A1C Routine 06/14/2022 from Last 3 Months or Most Recently Relevant to Health Maintenance Results * (ABNORMAL) Hemoglobin A1c (06/14/2022) Hemoglobin A1C 10.7(A) 4.0 - 6.0 % Blood Venous blood specimen / Unknown Historical Provider LAB BLOOD ORDERABLES Alka larry Result from Last 3 Months or Most Recently Relevant to Health Maintenance Insurance MEDICARE [facility] Care Teams Crib Tender Relationship Specialty Start Date End Date Constance Zamarripa MD [address] [place] [address] PCP - General Family Medicine 09/14/22
== END 2024-10-16 09:25 | disposition home or self-care (01) ==
LOC: HO.HOSX 09:24
PROVIDERS: PCP Nurse Practitioner Family; Visit Provider Orthopaedic Surgery
DX: Z96.612 Presence of left artificial shoulder joint (principal)
CPT/HCPCS: 73030; 99212

== ENCOUNTER → 2024-10-16 09:38 | Outpatient (BNV) | payer MEDICARE, MEDICAID, SELFPAY | PROVIDERS: PCP Nurse Practitioner Family; Visit Provider Radiology Diagnostic Radiology | DX: M25.512 Pain in left shoulder (principal); Z96.612 Presence of left artificial shoulder joint | CPT/HCPCS: 73030 ==

== ENCOUNTER 2024-11-17 14:48 | Outpatient (REF) | payer MEDICARE, MEDICAID, SELFPAY ==
--- NOTE | ~2024-11-17 | XR_ITS ---
EXAMINATION: XR CHEST 2 VIEWS HISTORY: Cough. COMPARISON: There are no prior studies for comparison. FINDINGS: PA and lateral views of the chest are submitted. The lungs are expanded and clear. There is no pleural effusion, pneumothorax, or pulmonary vascular congestion. The heart is normal in size. There is degenerative disc disease of the spine. A portion of a left reverse shoulder arthroplasty is noted. XR/XR chest 2V IMPRESSION: Clear lungs. Electronically signed by: Jason Riddle MD 11/18/2024 08:06 AM EDT
--- OUTSIDE RECORDS SUMMARY | 2024-11-17 18:24 | XMS_ITS | Clinical Summary ---
Author Organization [employer] Address [address] [place] [address] [address] [place] [address] Care Team Providers Care Director Of Elementary Education Name Role Phone Constance Zamarripa MD Primary Care Provider [phone] Allergies No known active allergies Medications Januvia [...] Erectile disorder due to medical condition in in le patient 09/15/2022 Essential (primary) hypertension 09/15/2022 GERD without esophagitis 09/15/2022 Encounters Date Type Department Care Team Description 09/24/2024 Refill [facility] [address] [place] [id number] Constance Zamarripa MD Essential (primary) hypertension from [...] Recently Relevant to Health Maintenance Insurance MEDICARE [facility] Care Teams Director Of Elementary Education Relationship Specialty Start Date End Date Constance Zamarripa MD [address] [place] [address] PCP - General Family Medicine 09/14/22
== END 2024-11-17 14:49 | disposition home or self-care (01) ==
LOC: HO.HMGCX 14:48
PROVIDERS: PCP Nurse Practitioner Family; Visit Provider Nurse Practitioner Family
DX: M54.2 Cervicalgia (principal); E11.9 Type 2 diabetes mellitus without complications; M12.812 Other specific arthropathies, not elsewhere classified, left shoulder; Z96.612 Presence of left artificial shoulder joint
CPT/HCPCS: 71046; 83036; 96127; 99212

== ENCOUNTER 2024-11-17 14:48 | Outpatient (AMB) | payer MEDICARE, MEDICAID, SELFPAY ==
--- NOTE | 2024-11-17 14:50 | A.OFFPC_ITS ---
Vital Signs 11/17/24 14:51 Height 5 ft 4 in Weight 168 lb 2 oz BMI 28.9 BP 140/80 H Blood Pressure Location Lt brachial Position Sitting Pulse 96 Pulse Source Pulse Oximeter Temp 97.8 F Temp Source Oral Pulse Oximetry (%) 98 Oxygen Delivery Method Room Air Intake Visit Reasons: 3 month follow up Supervisor Bindery Required: No Accompanied by: Self / Same As Patient Allergies No Known Allergies Allergy (Verified 11/17/24 14:51) Tobacco use date assessed: 08/18/24 Fall risk assessment: No Falls in past year Last assessed Fall Risk: 11/17/24 Dental Screening Dental Screen Date: 08/18/24 HPI 3 month follow up HPI Details Chief Complaint The patient presents with persistent cervical and trapezius pain. History of Present Illness The patient is a 69-year-old male presenting with cervical pain and post- surgical shoulder issues. His left cervical and trapezius pain predated the total shoulder arthroplasty in July 2024. Despite surgery, he continues to experience severe pain and limitation in his left upper extremity's range of motion, achieving approximately 60% functionality despite ongoing physical therapy. There is noted crepitus in the cervical spine upon motion, with significant pain, exacerbated by neck flexion and rotation, with intermittent radicular symptoms down LUE. He reports he has a eye MD The patient has reported dissatisfaction with oxycodone's effectiveness for pain relief and prefers tramadol. He has enhanced glycemic control with his A1c now at 7, though he is apprehensive about increasing his GLP-1 agonist dosage. Social History - Employment: Not discussed. - Housing: Not discussed. - Family status: Not discussed. - Exercise: Engages in physical therapy actively. - Nutritional intake: Working on dietary modifications due to Type 2 Diabetes Mellitus management. - Functional status: Limited range of mo tion in the left upper extremity. - Substance use: Oxycodone was reported ineffective. Health Maintenance - Monitoring of Type 2 Diabetes Mellitus with improved A1c level. - Discussed dietary modifications for be tter glycemic control. Review of Systems - Musculoskeletal: Reports persistent ce rvical and trapezius pain, limited range of motion in left upper extremity. - Endocrine: Denies changes in diabetic management apart from current therapy. Physical Exam General: Cooperative, frustrated, comfortable, no acute distress and well developed Orientation: Patient oriented x3 Limitations: Limited range of motion to left upper extremity since surgery Head: Normal to inspection Ears: Hearing grossly normal bilaterally Nose: Normal external nose present Face and sinus: Normal facial exam Eyes: Appearance normal, both eyes and all related structures Neck: Definite crepitus noted to the cervical spine, especially with turning head side to side and neck flexion, no pain with palpation, neg spurlings Respiratory: Normal respiratory effort and able to speak in complete sentences. Clear to auscultation bilaterally Cardiovascular: Regular rate and rhythm. Normal S1 and S2 GI: Normal to inspection. Soft to palpation and nontender Skin: No rashes or lesions noted Neuro: Patient oriented x3 Extremities: Feet are intact bilaterally. Positive sensation. Results - Tests and Diagnostics: X-ray affirmed hardware in place for the left shoulder. Plan To address the patient's reported cervical radiculopathy, I will replace oxycodone with tramadol. Despite hardware confirmation, further orthopedic evaluation for his shoulder may be necessary, with ongoing physical therapy for functional gains. His improved diabetes management with a current A1c of 7 is encouraging, allowing us to continue his regimen of GLP-1 agonist. Discussion Notes I discussed with the patient the switch from oxycodone to tramadol for pain management, addressing the ineffectiveness of the current regimen. I outlined the potential for a second orthopedic opinion given the limited post-surgical recovery. We continued with his diabetes management plan, with focus on dietary changes rather than increasing GLP-1 agonist dosage, due to his concerns about nausea. The patient is informed of the benefits of ongoing physical therapy. Follow-up care and symptom re-evaluation were discussed as necessary measures. Patient Instructions - Transition from oxycodone to tramadol for pain management. HE IS TO STOP THE OXY 100% BEFORE STARTING TRAMADOL - Continue physical therapy as prescribe d. - Focus on dietary modifications to rosie ge blood glucose levels. - Return for further evaluation if sympt oms persist or worsen. [facility] Medical History Alcohol dependence in sustained full remission GERD (gastroesophageal reflux disease) Seizures Hyperlipidemia Hypertension Diabetes type 2, controlled Surgical History History of total replacement of left shoulder joint H/O colonoscopy Hx of appendectomy H/O rotator cuff surgery History of ankle surgery Family History Father Diabetes Social History Household Members: Spouse Housing: Apartment Are you a primary care team assistant to a significant other at home: No Do you presently have visiting nurse or other home services: No Alcohol intake: former Patient Tobacco Use Status: Never used Tobacco e-Cigarette/Vaping Use: Never Used service: No Current occupational status: retired Current 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 1. Little interest or pleasure in doing things: more than half the days 2. Feeling down, depressed, or hopeless: several days 3. Trouble falling or staying asleep, or sleeping too much: nearly every day 4. Feeling tired or having little energy: several days 5. Poor appetite or overeating: more than half the days 6. Feeling bad about yourself - or that you are a failure or have let yourself or your family down: not at all 7. Trouble concentrating on things, such as reading the newspaper or watching television: not at all 8. Moving or speaking so slowly that other people could have noticed. Or the opposite - being so fidgety or restless that you have been moving around a lot more than usual: not at all 9. Thoughts that you would be better off or of hurting yourself in some way: not at all Total score: 9 Depression Screening Interpretation: Positive (declines therapist, denies any si or hi, more situational) Depression Screening Follow-up: Existing condition Depression Screening Done: Yes 30433 - PHQ-9 Billing: Yes Source: Developed by Drs. Jason Donovan, Cinthia Mclean, Lester Hunt and colleagues, with an educational phyllis from [employer] Thrive Questionnaire Date Thrive assessed: 11/17/24 I am a: Patient What is your living situation today?: I choose not to answer this question Within the past 12 months, did the food you bought not last and you didn't have the money to get more?: I choose not to answer this question Within the past 12 months, did you worry whether your food would run out before you got money to buy more?: I choose not to answer this question Do you have trouble paying for medicines?: I choose not to answer this question Do you have trouble getting transportation to medical appointments?: I choose not to answer this question Do you have trouble paying your heating and electricity bill?: I choose not to answer this question Do you have trouble taking care of your child, family member or friend?: I choose not to answer this question Do you have trouble with day-to-day activities such as bathing, preparing meals, shopping, managing finances, etc.?: I choose not to answer this question Are you currently unemployed and looking for a job?: I choose not to answer this question Are you interested in more education?: I choose not to answer this question Currently or been in a relationship where the following occur: I choose not to answer THRIVE Score: 0 AUDIT C Alcohol Use Questionnaire (AUDIT-C) 1. How often do you have a drink containing alcohol?: Never 3. How often do you have six or more drinks on one occasion?: Never Total Score: 0 Score Reviewed/Action Taken: Yes ADITI-7 AMB Questionnaire ADITI-7 Date ADITI - 7 assessed: 11/17/24 Feeling nervous, anxious, or on edge: 0 = Not at all Not being able to stop or control worryin = Not at all Worrying too much about different things: 0 = Not at all Trouble relaxin = Not at all Being so restless that it is hard to sit still: 0 = Not at all Becoming easily annoyed or irritable: 0 = Not at all Feeling afraid as if something awful might happen: 0 = Not at all Total ADITI-7 score (0-4 normal; 5-9 mild; 10-14 moderate; 15-21 severe): 0 Source: Developed by Drs. Jason Donovan, Cinthia Mclean, Lester Hunt and colleagues, with an educational phyllis from [employer] ADITI-7 Assessment Billing ADITI-7 Assessment Tool: ADITI-7 Assessment 40539 Physical exam (Primary Care) Vital Signs: Last Vital Signs Temp 97.8 F 11/17/24 14:51 Pulse 96 11/17/24 14:51 BP 140/80 H 11/17/24 14:51 Pulse Ox 98 11/17/24 14:51 Oxygen Delivery Method Room Air 11/17/24 14:51 BMI result Body Mass Index 28.9 Tobacco/Smoking Status: Tobacco use Status Tobacco use date assessed 08/18/24 11/17/24 14:50 Patient Tobacco Use Status Never used Tobacco 11/17/24 14:50 e-Cigarette/Vaping Use Never Used 11/17/24 14:50 PHQ-9: PHQ-9 Score PHQ-9: Total score 9 11/17/24 14:52 Depression Screening Interpretation: Positive (declines therapist, denies any si or hi, more situational) Depression Screening Follow-up: Existing condition Thrive Assessment: Date of Thrive Assessment Date Thrive assessed 11/17/24 11/17/24 14:52 Currently or been in a relationship where the following occur: I choose not to answer Results AMB Hemoglobin A1c AMB Hemoglobin A1c 6.2 % Last Edit by Jordi Kaba CMA on 11/17/24 15: 40 AMB Hemoglobin A1c AMB Hemoglobin A1c 6.2 % Last Edit by Jordi Kaba CMA on 11/17/24 15: 41 Coding Level of Care Code Est Pt Level 3 (38581) Diagnoses Cervical pain (neck) M54.2 Controlled type 2 diabetes mellitus without complication, without long-term current use of insulin E11.9 Diabetes mellitus complication status: without complication Diabetes mellitus meterman insulin use: without meterman use Rotator cuff arthropathy of left shoulder M12.812 History of reverse total replacement of shoulder joint Z96.619 Additional Codes ADITI-7 Assessment Billing - ADITI-7 Assessment Tool: ADITI-7 Assessment 16029 ([id number]) PHQ-9 - 60847 - PHQ-9 Billing: Yes ([id number]) Assessment & Plan Assessment & Plan (1) Cervical pain (neck): Code(s): M54.2 - Cervicalgia Category: Medical (2) Diabetes type 2, controlled: Code(s): E11.9 - Type 2 diabetes mellitus without complications Category: Medical Qualifiers: Diabetes mellitus complication status: without complication Diabetes mellitus care home insulin use: without meterman use Qualified Code(s): E11.9 - Type 2 diabetes mellitus without complications (3) Rotator cuff arthropathy of left shoulder: Code(s): M12.812 - Other specific arthropathies, not elsewhere classified, left shoulder Category: Medical (4) History of reverse total replacement of shoulder joint: Code(s): Z96.619 - Presence of unspecified artificial shoulder joint Category: Surgical Plan . Orders: Orders AMB Hemoglobin A1c Today Z13.9 - Encounter for screening, unspecified Complete Blood Count Auto Diff Today E11.9 - Type 2 diabetes mellitus without complications Comprehensive [place]. Panel Fast Today E11.9 - Type 2 diabetes mellitus without complications TSH reflex Free T4 Today E11.9 - Type 2 diabetes mellitus without complications XR chest 2V Today E11.9 - Type 2 diabetes mellitus without complications, M54.2 - Cervicalgia UA CC w/rflx Micro + Cult Today E11.9 - Type 2 diabetes mellitus without complications Lipid Panel Today E11.9 - Type 2 diabetes mellitus without complications Medications: New tramadol do not share, take only as prescribed, cannot drive while on med, STOP OXY COMPLETELY 50 mg PO BID 14 days PRN 28 tabs 0RF pain Discontinued oxycodone Partial Fill upon patient request. Discontinued Reason: Doctor's Order 5 mg PO BID PRN 30 tabs 0RF pain
[2024-11-17 14:51] VITALS: BP 140/80; PULSE 96; TEMP 36.6; O2SAT 98; BMI 28.9
--- OUTSIDE RECORDS SUMMARY | 2024-11-17 17:41 | XMS_ITS | Clinical Summary ---
Author Organization [employer] Address [address] [place] [address] [address] [place] [address] Care Team Providers Care Aircrewman Name Role Phone Constance Zamarripa MD Primary Care Provider [phone] Allergies No known active allergies Medications Januvia 100 MG tablet Take 100 mg by mouth in the morning. 2 Active doxepin (SINEquan) 10 MG capsuleIndications :Primary insomnia Take 1 capsule (10 mg) by mouth at bedtime. 90 capsule 3 3 Active sildenafil (Viagra) 100 MG tabletIndications: Erectile disorder due to medical condition in male patient Take 1 tablet (100 mg) by mouth in the morning. 10 tablet 11 3 Active amLODIPine (Norvasc) 5 MG tabletIndications: Essential (primary) hypertension TAKE 1 TABLET BY MOUTH EVERY DAY IN THE MORNING 90 tablet 1 3 Active Januvia 100 MG tabletIndications: Type 2 diabetes mellitus without complications (CMS/HCC) TAKE 1 TABLET BY MOUTH EVERY DAY IN THE MORNING 90 tablet 3 3 Active atorvastatin (Lipitor) 40 MG tabletIndications: Type 2 diabetes mellitus without complications (CMS/HCC) TAKE 1 TABLET BY MOUTH EVERY DAY 90 tablet 3 4 Active metFORMIN (Glucophage) 1000 MG tabletIndications: Type 2 diabetes mellitus without complications (CMS/HCC) TAKE 1 TABLET BY MOUTH TWICE A DAY WITH FOOD 180 tablet 4 Active pantoprazole (ProtoNix) 40 MG EC tabletIndications: Gastro-esophageal reflux disease without esophagitis TAKE 1 TABLET (40 MG) BY MOUTH DAILY BEFORE BREAKFAST. 90 tablet 3 4 Active lisinopril 40 MG tabletIndications: Essential (primary) hypertension TAKE 1 TABLET BY MOUTH EVERY DAY IN THE MORNING 90 tablet 3 Active Active Problems Problem Noted Date Diagnosed Date Diabetes mellitus type II, non insulin dependent 09/15/2022 Erectile disorder due to medical condition in wa le patient 09/15/2022 Essential (primary) hypertension 09/15/2022 GERD without esophagitis 09/15/2022 Encounters Date Type Department Care Team Description 09/24/2024 Refill [facility] [address] [place] [id number] Constance Zamarripa MD Essential (primary) hypertension from [...] Tobacco Screening 12/07/2023 12/06/2022 COVID-19 Vaccine ( - season) 2024 08/29/2021, 02/05/2021, 01/12/2021 Influenza Vaccine [...] % Blood Venous blood specimen / Unknown us Historical Provider LAB BLOOD ORDERABLES Alka l Result from Last 3 Months or Most Recently Relevant to Health Maintenance Insurance MEDICARE [facility] Care Teams Aircrewman Relationship Specialty Start Date End Date Constance Zamarripa MD [address] [place] [address] PCP - General Family Medicine 09/14/22
== END 2024-11-17 15:35 | disposition home or self-care (01) ==
LOC: HO.HMCC 14:49
PROVIDERS: Visit Provider Nurse Practitioner Family
DX: M54.2 Cervicalgia (principal); E11.9 Type 2 diabetes mellitus without complications; M12.812 Other specific arthropathies, not elsewhere classified, left shoulder; Z96.619 Presence of unspecified artificial shoulder joint; Z13.9 Encounter for screening, unspecified

== ENCOUNTER → 2024-11-17 15:44 | Outpatient (BNV) | payer MEDICARE, MEDICAID, SELFPAY | PROVIDERS: PCP Nurse Practitioner Family; Visit Provider Radiology Diagnostic Radiology | DX: R05.9 Cough, unspecified (principal) | CPT/HCPCS: 71046 ==

== ENCOUNTER 2024-11-20 09:14 | Outpatient (REF) | payer MEDICARE, MEDICAID, SELFPAY ==
--- OUTSIDE RECORDS SUMMARY | 2024-11-20 09:55 | XMS_ITS | Clinical Summary ---
Author Organization [employer] Address [address] [place] [address] 7 [place] [address] Care Team Providers Care Battery Container Finishing Hand Name Role Phone Constance Zamarripa MD Primary Care Provider Allergies No known active allergies Medications Januvia [...] Erectile disorder due to medical condition in [place] le patient 09/15/2022 Essential (primary) hypertension 09/15/2022 GERD without esophagitis 09/15/2022 Encounters Date Type Department Care Team Description 09/24/2024 Refill [facility] [address] [place] [id number] Constance Zamarripa MD Essential (primary) hypertension from [...] Recently Relevant to Health Maintenance Insurance MEDICARE [facility] Care Teams Battery Container Finishing Hand Relationship Specialty Start Date End Date Constance Zamarripa MD [address] [place] [address] PCP - General Family Medicine 09/14/22
[2024-11-20 10:11] LABS: MANUAL DIFF FLAG NO
[2024-11-20 10:18] LABS: Basophils Absolute Auto 0.1 X10*3/uL (0.0-0.2); Basophils Percent Auto 0.8 % (0-2); Eosinophils Absolute Auto 0.5 X10*3/uL (0.0-0.4); Eosinophils Percent Auto 4.9 % (0-4); Hemoglobin 15.3 g/dl (14.0-18.0); Imm Gran Abs Auto 0.02 X10*3/uL (0.00-0.03); Imm Gran Pct Auto 0.2 % (0.0-0.4); Lymphocytes Absolute Auto 2.1 X10*3/uL (1.2-4.9); Lymphocytes Percent Auto 23.5 % (20-40); Mean Corpuscular HGB Conc 33.3 g/dl (31.0-36.0); Mean Corpuscular Hemoglobin 30.2 pg (27.0-33.0); Mean Corpuscular Volume 90.7 fL (80.0-98.0); Mean Platelet Volume 9.3 fL (9.4-12.4); Monocytes Absolute Auto 0.7 X10*3/uL (0.1-1.2); Monocytes Percent Auto 7.6 % (2-11); Neutrophils Absolute Auto 5.8 x10*3/uL (2.0-8.3); Platelet Count 261 X10*3/uL (160-400); Red Blood Count 5.07 X10*6/uL (4.60-5.80); White Blood Count 9.1 X10*3/uL (4.8-10.8)
[2024-11-20 10:54] LABS: Alanine Aminotransferase 22 U/L (0-40); Albumin Level 4.2 g/dL (3.5-5.0); Alkaline Phosphatase 81 U/L (39-117); Anion Gap 14 (12-20); Aspartate Amino Transferase 26 U/L (5-37); Bilirubin Total 0.5 mg/dL (0.0-1.0); Blood Urea Nitrogen 16 mg/dL (9-16); Carbon Dioxide 20 mmol/L (22-29); Chloride 109 mmol/L (96-108); Cholesterol 109 mg/dL (<200); Estimated Glomerular Filt Rate > 60; Glucose Fasting 135 mg/dL (60-99); HDL Cholesterol 46 mg/dL (>40); LDL Cholesterol Calculated 52 mg/dL (<100); Potassium 4.3 mmol/L (3.3-5.1); Sodium 139 mmol/L (135-145); Total Protein 7.2 g/dL (6.5-8.0); Triglycerides 57 mg/dL (<150)
== END 2024-11-20 09:15 | disposition home or self-care (01) ==
LOC: HO.HMGCLDS 09:14
PROVIDERS: PCP Nurse Practitioner Family; Visit Provider Nurse Practitioner Family
DX: E11.9 Type 2 diabetes mellitus without complications (principal)
CPT/HCPCS: 36415; 80053; 80061; 84443; 85025

== ENCOUNTER 2025-01-06 08:58 | Outpatient (AMB) | payer MEDICARE, MEDICAID, SELFPAY ==
[2025-01-06 09:04] VITALS: BP 136/80; PULSE 110; TEMP 36.6; O2SAT 97; BMI 28.8
--- NOTE | 2025-01-06 09:04 | MHC.OFFWIV ---
Intake Vital Signs 01/06/25 09:04 Height 5 ft 4 in Weight 168 lb BMI 28.8 BP 136/80 Blood Pressure Location Rt brachial Position Sitting Pulse 110 H Pulse Source Pulse Oximeter Temp 97.8 F Temp Source Oral Pulse Oximetry (%) 97 Intake Visit Reasons: EP Pain on LT neck & shoulder Patient Tobacco Use Status: Never used Tobacco Allergies No Known Allergies Allergy (Verified 01/06/25 09:04) Do you need a note to return to daycare/school/sports/work: No HPI HPI Comments History of Present Illness Details History of Present Illness - The patient is a 69-year-old male presenting with acute on chronic left shoulder pain and new-onset neck pain following left shoulder replacement on 07/29/24. - He underwent left reverse total shoulder arthroplasty in July, with initial recovery progressing normally until worsened pain developed similar to preoperative experiences. - Past surgical history includes two rotator cuff repairs. - Currently, chronic shoulder pain persists with difficulty in neck movement, particularly to the right side. - His condition has been exacerbated by insurance complications preventing physical therapy. - Pain management issues include insufficient relief from previously prescribed medications - currently taking Tramadol which only helps for 3 hours. - An orthopedic follow-up is scheduled. Physical Exam General: Cooperative, healthy appearing, comfortable, no acute distress and well developed Orientation: Patient oriented x3 Limitations: Limited range of motion in the neck and left shoulder Head: Normal to inspection Ears: Hearing grossly normal bilaterally Nose: Normal External nose present Face and sinus: Normal facial exam Eyes: Appearance normal, both eyes and all related structures Neck: Normal visual inspection, limited ROM due to muscle spasm Respiratory: Normal respiratory effort and able to speak in complete sentences. Skin: No rashes or lesions noted Neuro: Patient oriented x3 Spine/back: no ttp cervical spine, ttp left paraspinous into trapezius Extremities: Limited range of motion in the left shoulder due to pain PFSH Medical History Alcohol dependence in sustained full remission GERD (gastroesophageal reflux disease) Seizures Hyperlipidemia Hypertension Diabetes type 2, controlled Surgical History History of total replacement of left shoulder joint H/O colonoscopy Hx of appendectomy H/O rotator cuff surgery History of ankle surgery Family History Father Diabetes Social History Household Members: Spouse Housing: Apartment Are you a primary wound care center consultant to a significant other at home: No Do you presently have visiting nurse or other home services: No Alcohol intake: former Patient Tobacco Use Status: Never used Tobacco e-Cigarette/Vaping Use: Never Used service: No Current occupational status: retired Current occupation: left hand dominant Current occupational exposures/hazards: No Cognitive needs: No Hearing needs: No Vision needs: Yes Review of Systems Const All systems reviewed & are unremarkable except as noted in HPI and below Physical Exam Vital Signs: Last Vital Signs Temp 97.8 F 01/06/25 09:04 Pulse 110 H 01/06/25 09:04 BP 136/80 01/06/25 09:04 Pulse Ox 97 01/06/25 09:04 BMI result Body Mass Index 28.8 Assessment & Plan Assessment & Plan (1) Cervical pain (neck): Code(s): M54.2 - Cervicalgia Plan: We addressed the management of persistent chronic shoulder pain and cervical muscle spasms post-surgery. I advised using cyclobenzaprine and meloxicam ATC x 2-3 days then wean, the patient should stop tramadol to avoid drug interactions. Heat applications were suggested for muscle relaxation, though the patient reported some relief from ice. Insurance limitations affected physical therapy, but further attempts to resolve this were discussed, he declined PT. The patient has scheduled an evaluation with another search specialist for additional guidance. [place] will be the timeline for potential surgical reconsideration if symptoms continue unabated. Patient was informed and verbally consented to the use of an ambient scribe for clinic note documentation during this visit. (2) Left shoulder pain: Code(s): M25.512 - Pain in left shoulder Qualifiers: Chronicity: unspecified Qualified Code(s): M25.512 - Pain in left shoulder Plan: as above Medications: New cyclobenzaprine 10 mg (2 x 5 mg) PO Q8H PRN 30 tabs 0RF Muscle Spasm meloxicam 15 mg PO DAILY 15 tabs 0RF Discontinued tramadol cannot drive on med, cannot share med, take only as prescribed Discontinued Reason: Patient Completed Course 50 mg PO Q12H 20 days PRN 40 tabs 0RF pain Coding Level of Care Code Est Pt Level 3 (69076) Diagnoses Cervical pain (neck) M54.2 Left shoulder pain, unspecified chronicity M25.512 Chronicity: unspecified
--- OUTSIDE RECORDS SUMMARY | 2025-01-06 09:25 | XMS_ITS | Clinical Summary ---
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 le patient 09/15/2022 Essential (primary) hypertension 09/15/2022 GERD without esophagitis 09/15/2022 Social History Tobacco Use Types Packs/Day Years [...] patient's age to complete this topic Meningococcal B Vaccine Aged Out No l onger eligible based on patient's age to complete [...] Unknown Historical Provider LAB BLOOD ORDERABLES [place] l Result from Last 3 Months or Most Recently Relevant to Health Maintenance Insurance MEDICARE [facility] Care Teams Architectural Coating Finisher Relationship Specialty Start Date End Date Constance Zamarripa MD [address] [place] [phone] PCP - General Family Medicine 09/14/22
== END 2025-01-06 09:56 | disposition home or self-care (01) ==
PROVIDERS: PCP Nurse Practitioner Family; Visit Provider Physician Assistant
DX: M54.2 Cervicalgia (principal); M25.512 Pain in left shoulder

== ENCOUNTER → 2025-01-06 08:58 | Outpatient (BNVA) | payer MEDICARE, MEDICAID, SELFPAY | PROVIDERS: PCP Nurse Practitioner Family; Visit Provider Physician Assistant | DX: M54.2 Cervicalgia (principal); M25.512 Pain in left shoulder | CPT/HCPCS: 99212 ==

== ENCOUNTER 2025-01-21 09:52 | Outpatient (AMB) | payer MEDICARE, MEDICAID, SELFPAY ==
[2025-01-21 09:56] VITALS: BP 118/80; PULSE 100; TEMP 36.7; O2SAT 96; BMI 29.2
--- NOTE | 2025-01-21 09:56 | MHC.PC.OV ---
Vital Signs 01/21/25 09:56 Height 5 ft 4 in Weight 170 lb BMI 29.2 BP 118/80 Blood Pressure Location Lt brachial Position Sitting Pulse 100 Pulse Source Pulse Oximeter Temp 98.1 F Temp Source Oral Pulse Oximetry (%) 96 Oxygen Delivery Method Room Air Intake Visit Reasons: Sinus infection Thread Marker Required: No Accompanied by: Self / Same As Patient Allergies No Known Allergies Allergy (Verified 01/21/25 09:56) Medication List - Last Reconciled 01/21/25 by TED Baca acetaminophen 650 mg (2 x 325 mg) PO Q6H PRN 30 days amlodipine 10 mg PO DAILY atorvastatin 40 mg PO BEDTIME blood sugar diagnostic ([employer] Ultra Test strips) USE TO TEST BLOOD SUGAR ONCE A DAY blood-glucose meter ([employer] Ultra2 Meter) As directed blood-glucose meter As directed docusate sodium 100 mg PO BID 30 days empagliflozin (Jardiance) 25 mg PO DAILY lancets ([employer] Delica Plus Lancet) Test blood sugar once a day lancets ([employer] Delica Plus Lancet) Check blood sugar once daily as directed lancing device with lancets ([employer] Delica Plus Lancing Device kit) As directed lisinopril 40 mg PO DAILY metformin 1,000 mg PO BID 90 days pantoprazole 40 mg PO BEDTIME sildenafil 100 mg PO DAILY PRN tirzepatide 2.5 mg (0.5 mL) subcut QWEEK tramadol 50 mg PO DAILY PRN 20 days Tobacco use date assessed: 08/18/24 Fall risk assessment: No Falls in past year Last assessed Fall Risk: 01/21/25 Dental Screening Dental Screen Date: 08/18/24 HPI Sinus infection HPI Details Chief Complaint Acute sinusitis and ongoing allergy symptoms. History of Present Illness The patient is a 69-year-old male presenting with symptoms of sinusitis and allergic rhinitis. He reports significant maxillary and frontal sinus tenderness. The patient is also experiencing persistent symptoms of allergies, which include itchy eyes and a scratchy throat. His symptoms have led to discomfort necessitating this medical evaluation. There is no history of chronic sinus or allergy treatments mentioned in the conversation, and no previous medical interventions for these symptoms are reported before this visit. Social History Health Maintenance Review of Systems - HEENT: Reports significant maxillary frontal sinus tenderness. Reports itchy eyes and scratchy throat. Physical Exam General: Cooperative, healthy appearing, comfortable, no acute distress and well developed Orientation: Patient oriented x3 Limitations: No limitations Head: Normal to inspection Ears: Hearing grossly normal bilaterally Nose: Normal external nose present Face and sinus: Significant maxillary and frontal tenderness with palpation Eyes: Appearance normal, both eyes and all related structures, ongoing itchy eyes reported Neck: Normal visual inspection and Yes full ROM Respiratory: Normal respiratory effort and able to speak in complete sentences. Clear to auscultation bilaterally Cardiovascular: Regular rate and rhythm. Normal S1 and S2 GI: Normal to inspection. Soft to palpation and nontender Skin: No rashes or lesions noted Neuro: Patient oriented x3 Extremities: Normal to inspection Results Plan The treatment plan for the patient addresses sinusitis with Augmentin for the bacterial component. Allergic symptoms will be managed with cetirizine, providing the flexibility of dosing frequency to optimize relief and adherence to therapy. The medication choices are aimed at targeting the respective conditions and alleviating the patient?s current discomforts. Discussion Notes I discussed with the patient the likelihood of his symptoms being attributed to a combination of sinusitis and allergic rhinitis. I explained the treatment rationale, advising him that Augmentin is usually effective for bacterial sinus infections. Additionally, I discussed the use of cetirizine for allergy management and provided dosing flexibility. Potential benefits and expected outcomes of the medications were explained, and the patient agreed to the treatment plan. I offered anticipatory guidance on monitoring symptoms and indicated the need for follow-up if symptoms persist or worsen. Patient Instructions - Take Augmentin as prescribed to treat sinus infection. - Take cetirizine for allergy relief, either 10 mg twice a day or 20 mg once a day. - Monitor symptoms, and seek follow-up if there is no improvement or symptoms worsen. - Contact healthcare provider if experiencing side effects from medications. PENDING SALE TO [facility] Medical History Alcohol dependence in sustained full remission GERD (gastroesophageal reflux disease) Seizures Hyperlipidemia Hypertension Diabetes type 2, controlled Surgical History History of total replacement of left shoulder joint H/O colonoscopy Hx of appendectomy H/O rotator cuff surgery History of ankle surgery Family History Father Diabetes Social History Household Members: Spouse Housing: Apartment Are you a primary nurse behavioral health care to a significant other at home: No Do you presently have visiting nurse or other home services: No Alcohol intake: former Patient Tobacco Use Status: Never used Tobacco e-Cigarette/Vaping Use: Never Used service: No Current occupational status: retired Current occupation: left hand dominant Current occupational exposures/hazards: No Cognitive needs: No Hearing needs: No Vision needs: Yes Questionnaire Thrive Questionnaire Date Thrive assessed: 01/21/25 I am a: Patient What is your living situation today?: I choose not to answer this question Within the past 12 months, did the food you bought not last and you didn't have the money to get more?: I choose not to answer this question Within the past 12 months, did you worry whether your food would run out before you got money to buy more?: I choose not to answer this question Do you have trouble paying for medicines?: I choose not to answer this question Do you have trouble getting transportation to medical appointments?: I choose not to answer this question Do you have trouble paying your heating and electricity bill?: I choose not to answer this question Do you have trouble taking care of your child, family member or friend?: I choose not to answer this question Do you have trouble with day-to-day activities such as bathing, preparing meals, shopping, managing finances, etc.?: I choose not to answer this question Are you currently unemployed and looking for a job?: I choose not to answer this question Are you interested in more education?: I choose not to answer this question Currently or been in a relationship where the following occur: I choose not to answer THRIVE Score: 0 ADITI-7 AMB Questionnaire ADITI-7 Date ADITI - 7 assessed: 11/17/24 Source: Developed by Drs. Jason Donovan, Cinthia Mclean, Lester Hunt and colleagues, with an educational phyllis from [employer]. Physical exam (Primary Care) Vital Signs: Last Vital Signs Temp 98.1 F 01/21/25 09:56 Pulse 100 01/21/25 09:56 BP 118/80 01/21/25 09:56 Pulse Ox 96 01/21/25 09:56 Oxygen Delivery Method Room Air 01/21/25 09:56 BMI result Body Mass Index 29.2 Tobacco/Smoking Status: Tobacco use Status Tobacco use date assessed 08/18/24 01/21/25 09:57 Patient Tobacco Use Status Never used Tobacco 01/21/25 09:57 e-Cigarette/Vaping Use Never Used 01/21/25 09:57 Thrive Assessment: Date of Thrive Assessment Date Thrive assessed 01/21/25 01/21/25 09:57 Currently or been in a relationship where the following occur: I choose not to answer Coding Level of Care Code Est Pt Level 3 (37412) Diagnoses Sinusitis J32.9 Assessment & Plan Assessment & Plan (1) Sinusitis: Code(s): J32.9 - Chronic sinusitis, unspecified Category: Medical Plan . Medications: New meloxicam 15 mg PO DAILY PRN 30 tabs 0RF pain 30 days amoxicillin-pot clavulanate 875-125 mg 1 tab PO BID 20 tabs 0RF 10 days
--- OUTSIDE RECORDS SUMMARY | 2025-01-21 10:55 | XMS_ITS | Clinical Summary ---
Author Organization [facility] Address [address] [place] [address] [address] [place] [address] Care Team Providers Care Photoengraving Supervisor Name Role Phone Constance Zamarripa MD Primary Care Provider [phone] Allergies No known active allergies Medications Januvia [...] season) 2024 08/29/2021, 02/05/2021, 01/12/2021 Influenza Vaccine (Season Ended) 2025 08/29/2021, 07/11/2021, 07/21/2020, Additional history exists RSV Patients [...] Recently Relevant to Health Maintenance Insurance MEDICARE [facility] Care Teams Photoengraving Supervisor Relationship Specialty Start Date End Date Constance Zamarripa MD [address] [place] [id number] PCP - General Family Medicine 09/14/22
== END 2025-01-21 10:44 | disposition home or self-care (01) ==
LOC: HO.HMCC 09:52
PROVIDERS: PCP Nurse Practitioner Family; Visit Provider Nurse Practitioner Family
DX: J32.9 Chronic sinusitis, unspecified (principal)

== ENCOUNTER → 2025-01-21 09:52 | Outpatient (BNVA) | payer MEDICARE, MEDICAID, SELFPAY | PROVIDERS: PCP Nurse Practitioner Family; Visit Provider Nurse Practitioner Family | DX: J32.9 Chronic sinusitis, unspecified (principal) | CPT/HCPCS: 99212 ==

== ENCOUNTER 2025-02-06 09:10 | Outpatient (AMB) | payer MEDICARE, MEDICAID, SELFPAY ==
[2025-02-06 09:18] VITALS: BMI 24.0
--- NOTE | 2025-02-06 09:18 | A.OFFVIS_ITS ---
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 Patient was referred by ROSEMARY. Patient has a History multiple Left shoulder surgeries. He was last seen with NE who has performed a Left Reverse TSA 07/29/24. Patient was unable to complete physical therapy and at home exercises due to pain. Today Patient reports that he has had ongoing left sided neck and let trapezius pain ongoing for quite some time. He states that the pain was felt prior to surgery and has not improved post operatively. Patient voiced concern for pain medication options and would like to discuss an MRI. He stated that he does not want to pursue physical therapy options. He has been seen multiple times in the [facility]-In clinic where he was given muscle relaxers and meloxicam. Allergies No Known Allergies Allergy (Verified 02/06/25 09:23) Medication List - Last Reconciled 02/06/25 by Zakiya Oviedo MD acetaminophen 650 mg (2 x 325 mg) PO Q6H PRN 30 days amlodipine 10 mg PO DAILY atorvastatin 40 mg PO BEDTIME blood sugar diagnostic ([employer] Ultra Test strips) USE TO TEST BLOOD SUGAR ONCE A DAY blood-glucose meter ([employer] Ultra2 Meter) As directed blood-glucose meter As directed docusate sodium 100 mg PO BID 30 days empagliflozin (Jardiance) 25 mg PO DAILY lancets ([employer] Delica Plus Lancet) Test blood sugar once a day lancets ([employer] Delica Plus Lancet) Check blood sugar once daily as directed lancing device with lancets (OneTouch Delica Plus Lancing Device kit) As directed lisinopril 40 mg PO DAILY meloxicam 15 mg PO DAILY PRN 30 days metformin 1,000 mg PO BID 90 days pantoprazole 40 mg PO BEDTIME sildenafil 100 mg PO DAILY PRN 30 days tirzepatide 2.5 mg (0.5 mL) subcut QWEEK tramadol 50 mg PO DAILY PRN 20 days HPI Comments Details: Patient says all started last October 2023, ended up with multiple shoulder surgeries as above, also went through rehab. He continues to have left sided neck pain, trapezius, shoots down to upper arm only. Denies numbness. Shoulder abduction up to 70 degrees from previous surgery. Cervical x-ray done in the office prior to visit EMG images reviewed, showing mild spondylolisthesis C4-5 and C5-6? Decreased disc spaces and endplate anterior spurs. C6 vertebra appears smaller than the rest, patient admits that he may have had cervical fracture from falling 8 feet at work 20 years ago, he did not sustain SCI[facility] Medical History Alcohol dependence in sustained full remission GERD (gastroesophageal reflux disease) Seizures Hyperlipidemia Hypertension Diabetes type 2, controlled Surgical History History of total replacement of left shoulder joint H/O colonoscopy Hx of appendectomy H/O rotator cuff surgery History of ankle surgery Family History Father Diabetes Social History Household Members: Spouse Housing: Apartment Are you a primary director of healthcare systems to a significant other at home: No Do you presently have visiting nurse or other home services: No Alcohol intake: former Patient Tobacco Use Status: Never used Tobacco e-Cigarette/Vaping Use: Never Used service: No Current occupational status: retired Current occupation: left hand dominant Current occupational exposures/hazards: No Cognitive needs: No Hearing needs: No Vision needs: Yes Review of Systems Const All systems reviewed & are unremarkable except as noted in HPI and below Physical Exam Vital Signs: BMI result Body Mass Index 24.0 Constitutional: Patient appears to be in no acute distress, well nourished and well developed. Patient was appropriately conversant and oriented. Good historian. MSK: Inspection reveals appropriate head and neck positioning. Tender on left upper trapezius. No tenderness over cervical spinous processes or facets. Cervical ROM was limited in extension due to pain. Spurling's sign negative. He is able to abduct left shoulder up to 70 degrees before pain starts. Neurological: Left upper extremity weaker than right. 4/5 on shoulder forward flexion and finger flexion. Magallon?s negative bilaterally. Babinski was down going bilaterally. Clonus was negative. Gait is non-antalgic without loss of balance. Office Procedures Therapeutic Injection Therapeutic Injection Details: Trigger point injection, left upper trapezius. Consent obtained. 2 Trigger points palpated on left upper trapezius. Needling performed with gauge 27 needle, subsequently injecting 1 ml of 2% Lidocaine., total of 2 mL. Patient tolerated procedure well. Post-injection instructions given. [id number]-[id number] Point Injection 1 or 2 sites All charges added?: Procedure code (CPT) selection complete Results Reviewed Results Reviewed: I independently reviewed the results of the following: Cervical x-ray done today reviewed, shared with patient, as above. Ordering Physician: Zakiya Bautista Date of Service: 02/06/25 Procedure(s): XR cervical spine 3V Accession Number(s): [id number] cc: Alexandre Mccabe-; Zakiya Agudelo EXAMINATION: XR CERVICAL SPINE CLINICAL INFORMATION: M54.2 - Cervicalgia COMPARISON: None available. TECHNIQUE: AP, lateral, and atlantoodontoid view and swimmer's projection FINDINGS: Craniocervical junction is intact. Grade 1 anterolisthesis C3-4 and C4-5. Marginal osteophyte formation and endplate sclerosis subchondral cyst formation and decreased intervertebral disc height at C5-6 and C6-7 levels. No acute cortical disruption. No lytic or blastic lesions. Metallic prosthesis, shoulder no fully included in the [id number]. XR/XR cervical spine 3V IMPRESSION: Cervical spondylosis C5-6 and C6-7 levels. Grade 1 anterolisthesis C3-4 and C4-5 likely degenerative. Electronically signed by: Adolfo Sultana MD 02/06/2025 09:53 AM EDT I reviewed records from the following: Ortho Assessment & Plan Assessment & Plan (1) Chronic neck pain: Code(s): M54.2 - Cervicalgia; G89.29 - Other chronic pain Category: Medical (2) Cervical vertebral fracture: Comment: History of cervical spinal fracture per patient, more than 20 years ago Code(s): S12.9XXA - Fracture of neck, unspecified, initial encounter Category: Medical Qualifiers: Encounter type: sequela Cervical vertebra fracture level: C6 Fracture type: closed Fracture alignment: nondisplaced Fracture morphology: unspecified fracture morphology Qualified Code(s): S12.501S - Unspecified nondisplaced fracture of sixth cervical vertebra, sequela (3) Degenerative cervical disc: Code(s): M50.30 - Other cervical disc degeneration, unspecified cervical region Category: Medical (4) Myofascial pain: Code(s): M79.18 - Myalgia, other site Category: Medical Plan Plan to investigate chronic neck pain and provide intervention if needed. History/exam suggests trigger points/myofascial on left upper trapezius. Because he is in pain today, I offered trigger point injection trial today. I don't expect a lot of relief but if he does at least get some relief today, it would be reasonable to schedule him for a series of 3 more trigger point injections. Question old cervical C7 fracture as seen on xray today. Most likely has disc degenerative disc as well, C5-6 and C6-7. He tolerated trigger point injection today. X-ray final reading as above. They did not mention any acute fracture. Assessment and plan discussed with patient, and patient was agreeable. All questions were answered thoroughly. Total of 60 minutes spent today including chart review, results review, history taking, physical examination, discussion of assessment and plan, and coordination of care. Zakiya Oviedo MD, DORIS Board Certified, [place] [employer] and Rehabilitation (ABPMR) Board Certified, [place] [employer] Electrodiagnostic Medicine (ABEM) Orders: Orders XR cervical spine 3V Today M54.2 - Cervicalgia AMB Trigger Point Injection Today M79.18 - Myalgia, other site Medications: Discontinued amoxicillin-pot clavulanate 875-125 mg Discontinued Reason: Patient Completed Course 1 tab PO BID 10 days 20 tabs 0RF Coding Level of Care Code New Pt Level 5 (46165) Diagnoses Chronic neck pain M54.2; G89.29 Closed nondisplaced fracture of sixth cervical vertebra, unspecified fracture morphology, sequela S12.501S Encounter type: sequela Cervical vertebra fracture level: C6 Fracture type: closed Fracture alignment: nondisplaced Fracture morphology: unspecified fracture morphology Degenerative cervical disc M50.30 Myofascial pain M79.18 CPT Codes Therapeutic Injection - Ther Injection 1: 23026-[id number] Point Injection 1 or 2 sites ([id number])
--- OUTSIDE RECORDS SUMMARY | 2025-02-06 09:30 | XMS_ITS | Encounter Summary ---
Author Organization [facility] Address [address] [place] [address] [address] [place] [address] Care Team Providers Care Graphic Design Professor Name Role Phone Constance Zamarripa MD Primary Care Provider [phone] Reason for Visit * Reason Comments Med Refill Encounter Details Date Type Department Care Team (Late st Contact Info) Description 02/02/2025 Refill [facility] MEDICAL [address] [place] [address] Constance Zamarripa MD [address] [place] [address] Erectile disorder due to medical condition in male patient Social History Tobacco Use Types Packs/Day Years [...] as of this encounter Visit Diagnoses Diagnosis Erectile disorder due to medical condition in male patient documented in this encounter Care Teams Graphic Design Professor Relationship Specialty Start Date End Date Constance Zamarripa MD [address] [place] [address] PCP - General Family Medicine 09/14/22 documented as of this encounter
== END 2025-02-06 11:48 | disposition home or self-care (01) ==
LOC: HO.HOS 09:11
PROVIDERS: PCP Nurse Practitioner Family; Visit Provider Physical Medicine & Rehabilitation
DX: M54.2 Cervicalgia (principal); G89.29 Other chronic pain; S12.501S Unspecified nondisplaced fracture of sixth cervical vertebra, sequela; M50.30 Other cervical disc degeneration, unspecified cervical region; M79.18 Myalgia, other site
CPT/HCPCS: 20552; 99205

== ENCOUNTER 2025-02-06 09:10 | Outpatient (REF) | payer MEDICARE, MEDICAID, SELFPAY ==
--- NOTE | ~2025-02-06 | XR_ITS ---
EXAMINATION: XR CERVICAL SPINE CLINICAL INFORMATION: M54.2 - Cervicalgia COMPARISON: None available. TECHNIQUE: AP, lateral, and atlantoodontoid view and swimmer's projection FINDINGS: Craniocervical junction is intact. Grade 1 anterolisthesis C3-4 and C4-5. Marginal osteophyte formation and endplate sclerosis subchondral cyst formation and decreased intervertebral disc height at C5-6 and C6-7 levels. No acute cortical disruption. No lytic or blastic lesions. Metallic prosthesis, shoulder no fully included in the [id number]. XR/XR cervical spine 3V IMPRESSION: Cervical spondylosis C5-6 and C6-7 levels. Grade 1 anterolisthesis C3-4 and C4-5 likely degenerative. Electronically signed by: Adolfo Sultana MD 02/06/2025 09:53 AM EDT
== END 2025-02-06 09:11 | disposition home or self-care (01) ==
LOC: HO.HOSX 09:10
PROVIDERS: PCP Nurse Practitioner Family; Visit Provider Physical Medicine & Rehabilitation
DX: M54.2 Cervicalgia (principal); G89.29 Other chronic pain; S12.501S Unspecified nondisplaced fracture of sixth cervical vertebra, sequela; M79.18 Myalgia, other site
CPT/HCPCS: 20552; 72040; 99202; J2003

== ENCOUNTER → 2025-02-06 09:41 | Outpatient (BNV) | payer MEDICARE, MEDICAID, SELFPAY | PROVIDERS: PCP Nurse Practitioner Family; Visit Provider Radiology Diagnostic Radiology | DX: M43.12 Spondylolisthesis, cervical region (principal) | CPT/HCPCS: 72040 ==

== ENCOUNTER → 2025-03-01 08:45 | Outpatient (BNV) | payer MEDICARE, MEDICAID, SELFPAY | PROVIDERS: PCP Nurse Practitioner Family; Visit Provider Radiology Diagnostic Radiology | DX: M48.02 Spinal stenosis, cervical region (principal) | CPT/HCPCS: 72141 ==

== ENCOUNTER 2025-03-01 08:59 | Outpatient (REF) | payer MEDICARE, MEDICAID, SELFPAY ==
--- NOTE | ~2025-03-01 | MR_ITS ---
CLINICAL HISTORY: M54.12 - Radiculopathy, cervical region --- Additional Notes or Special Instructions: Evaluate for left-sided disc herniation or cervical radiculopathy, C5-6 MR cervical spine with and without gadolinium Comparison: DX/SR - XR CERVICAL SPINE 2-3 VIEWS - 02/06/25 09:41 EDT Findings: Visualized intracranial contents are unremarkable. Soft tissues of the neck are normal. Cervical cord normal size and signal. There is loss of normal cervical lordosis. Mild kyphosis at C4-C6. 2 mm of anterolisthesis of C3 on C4. 3 mm of anterolisthesis of C4 on C5. 2 mm of retrolisthesis of C5 on C6 and C6 on C7. No acute fractures or pathologic bone lesions. Mild reactive signal throughout the endplates of the cervical and upper thoracic spine, most prominently at C5-C6 and C6-C7. C2-C3:Moderate disc desiccation. Mild diffuse disc bulge. Mild facet and uncovertebral hypertrophy. Mild canal stenosis. Moderate bilateral foraminal stenosis. C3-C4:Moderate disc desiccation. Mild diffuse disc bulge with superimposed left far lateral broad-based protrusion. Moderate facet and uncovertebral hypertrophy bilaterally. Moderate canal stenosis. Severe bilateral foraminal stenosis with bilateral C4 nerve root compression. C4-C5:Moderate disc desiccation. Mild disc height loss. Mild facet and uncovertebral hypertrophy bilaterally. Mild canal stenosis. Moderate right and mild left foraminal stenosis. C5-C6:Moderate disc height loss and desiccation. Mild diffuse disc bulge /osteophyte. Moderate facet and uncovertebral hypertrophy bilaterally. Moderate canal stenosis. Minimal anterior cord flattening severe bilateral foraminal stenosis with bilateral C6 nerve root compression. C6-C7: Moderate disc height loss and desiccation. Mild diffuse disc bulge. Mild facet and uncovertebral hypertrophy bilaterally. Moderate canal stenosis. Severe bilateral foraminal stenosis with bilateral C7 nerve root compression. C7-T1:Moderate disc desiccation. Mild diffuse disc bulge. Mild facet and uncovertebral hypertrophy. Mild canal stenosis. Mild bilateral foraminal stenosis. IMPRESSION: 1. Multilevel degenerative disc and facet disease, as well as uncovertebral hypertrophy. 2. Mid/lower cervical kyphosis. 3. Multilevel canal stenoses, worst at C5-C6 where there is minimal cord flattening. 4. Multilevel foraminal stenoses, worst at C3-C4, C5-C6, and C6-C7 where there is associated intraforaminal nerve root compression. Correlation with clinical symptoms is recommended to assess relevance of these findings. This document has been electronically signed by: Girma Garcia MD on 03/03/2025 13:30:02
--- OUTSIDE RECORDS SUMMARY | 2025-03-01 09:01 | XMS_ITS | Clinical Summary ---
Author Organization [employer] Address [address] [place] [address] [address] [place] [address] Care Team Providers Care Access Spec Name Role Phone Constance Zamarripa MD Primary Care Provider [phone] Allergies No known active allergies Medications Januvia 100 MG tablet Take 100 mg by mouth in the morning. 06/14/20 22 Active doxepin (SINEquan) 10 MG capsuleIndication s:Primary insomnia Take 1 capsule (10 mg) by mouth at bedtime. 90 capsule 3 01/02/20 23 Active amLODIPine (Norvasc) 5 MG tabletIndications [...] MORNING 90 tablet 3 09/24/19 25 Active sildenafil (Viagra) 100 MG tabletIndications :Erectile disorder due to medical condition in male patient TAKE ONE TABLET BY MOUTH EVERY MORNING 10 tablet 11 02/05/20 25 Active sildenafil (Viagra) 100 MG tabletIndications :Erectile disorder due to medical condition in male patient Take 1 tablet (100 mg) by mouth in the morning. 10 tablet 11 02/23/20 23 025 Discontinued Active Problems Problem Noted Date Diagnosed Date Diabetes mellitus type II, non insulin dependent 09/15/2022 Erectile disorder due to medical condition in ma le patient 09/15/2022 Essential (primary) hypertension 09/15/2022 GERD without esophagitis 09/15/2022 Encounters Date Type Department Care Team Description 02/02/2025 Refill [facility] MEDICAL [address] [place] [address] Constance Zamarripa MD Erectile disorder due to medical condition in male patient from Last 3 Months Social History Tobacco [...] 116 12/06/2022 10:36 AM EDT Temperature 36.4 C (97.6 F) 12/06/2022 10:36 AM EDT Respiratory Rate 16 12/06/2022 10:36 AM EDT [...] 2024 08/29/2021, 02/05/2021, 01/12/2021 Influenza Vaccine (#1) 2025 , 07/11/2021, 07/21/2020, Additional history exists RSV Patients [...] % Blood Venous blood specimen / Unknown [facility] Provider LAB BLOOD ORDERABLES Alka l Result from Last 3 Months or Most Recently Relevant to Health Maintenance Insurance MEDICARE Member Subscriber Plan / Payer (Ef fective 2022-Present) Name:Jose Ansari Member ID:[id number] Relation to Subscriber:Self Name:Jose Ansari Subscriber ID:[id number] Payer ID:[facility] [facility] Group ID:Not on file Type:Medicare Address: [facility] [address] [address] [place] [address] Care Teams Access Spec Relationship Specialty Start Date End Date Constance Zamarripa MD [address] [place] [address] PCP - General Family Medicine 09/14/22
== END 2025-03-01 09:00 | disposition home or self-care (01) ==
LOC: HO.MRI 08:59
PROVIDERS: PCP Nurse Practitioner Family; Visit Provider Physical Medicine & Rehabilitation
DX: M54.12 Radiculopathy, cervical region (principal)
CPT/HCPCS: 72141

== ENCOUNTER 2025-03-06 11:46 | Outpatient (AMB) | payer MEDICARE, MEDICAID, SELFPAY ==
[2025-03-06 11:48] VITALS: BMI 24.0
--- NOTE | 2025-03-06 11:48 | A.OFFVIS_ITS ---
Vital Signs 03/06/25 11:48 Height 5 ft 4 in Weight 140 lb BMI 24.0 Intake Visit Reasons: MRI review cervical spine Intake Note: Jose is a 70 year old male who presents today as a follow up appointment to review his Cervical spine MRI. At last visit we discussed to possibly start another series of 3 more trigger point injections,02/06/25. At today's visit he states that he feels sore, no changes to report. Allergies No Known Allergies Allergy (Verified 03/06/25 11:50) Medication List - Last Reconciled 03/06/25 by Zakiya Oviedo MD acetaminophen 650 mg (2 x 325 mg) PO Q6H PRN 30 days amlodipine 10 mg PO DAILY atorvastatin 40 mg PO BEDTIME blood sugar diagnostic ([email or web address] Ultra Test strips) USE TO TEST BLOOD SUGAR ONCE A DAY blood-glucose meter ([email or web address] Ultra2 Meter) As directed blood-glucose meter As directed docusate sodium 100 mg PO BID 30 days empagliflozin (Jardiance) 25 mg PO DAILY lancets (OneTouch Delica Plus Lancet) Test blood sugar once a day lancets (OneTouch Delica Plus Lancet) Check blood sugar once daily as directed lancing device with lancets (OneTouch Delica Plus Lancing Device kit) As directed lisinopril 40 mg PO DAILY metformin 1,000 mg PO BID 90 days pantoprazole 40 mg PO BEDTIME sildenafil 100 mg PO DAILY PRN 30 days tirzepatide 2.5 mg (0.5 mL) subcut QWEEK tramadol 50 mg PO DAILY PRN 20 days HPI Comments Details: Patient says all started last October 2023, ended up with multiple shoulder surgeries as above, also went through rehab. He continues to have left sided neck pain, trapezius, shoots down to upper arm only. Denies numbness. Shoulder abduction up to 70 degrees from previous surgery. Cervical x-ray done in the office prior to visit EMG images reviewed, showing mild spondylolisthesis C4-5 and C5-6? Decreased disc spaces and endplate a nterior spurs. C6 vertebra appears smaller than the rest, patient admits that he may have had cervical fracture from falling 8 feet at work 20 years ago, he did not sustain SCI. Cervical MRI done. No mentioned of acute vertebral fracture. C5-C6 does appear to have lower vertebral height with large anterior endplate spurs. Very decreased disc spaces. C5-6 and C6-7 shows moderate spinal stenosis and severe foraminal stenosis. We did try diagnostic trigger point injection on last visit to upper trapezius, without much relief for the patient. Noted that he went to walk-in clinic 01/06/2025 and was prescribed with cyclobenzaprine. Noted also that PCP prescribed tramadol last 02/09/2025, 20 pills. 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 GERD (gastroesophageal reflux disease) Seizures Hyperlipidemia Hypertension Diabetes type 2, controlled Surgical History History of total replacement of left shoulder joint H/O colonoscopy Hx of appendectomy H/O rotator cuff surgery History of ankle surgery Family History Father Diabetes Social History Household Members: Spouse Housing: Apartment Are you a primary healthcare associate to a significant other at home: No Do you presently have visiting nurse or other home services: No Alcohol intake: former Patient Tobacco Use Status: Never used Tobacco e-Cigarette/Vaping Use: Never Used service: No Current occupational status: retired Current occupation: left hand dominant Current occupational exposures/hazards: No Cognitive needs: No Hearing needs: No Vision needs: Yes Physical Exam Vital Signs: BMI result Body Mass Index 24.0 Constitutional: Patient appears to be in no acute distress, well nourished and well developed. Patient was appropriately conversant and oriented. Good historian. MSK: Cervical ROM was limited in extension due to pain. Spurling's sign negative. He is able to abduct left shoulder up to 70 degrees before pain starts. Neurological: Left upper extremity 4/5, weaker than right. Negative pronator drift. Magallon?s negative bilaterally. No hyperreflexia. Gait is non-antalgic without loss of balance. Results Reviewed Results Reviewed: Ordering Physician: Zakiya Bautista Date of Service: 03/01/25 Procedure(s): MR cervical spine wo con Accession Number(s): [id number] cc: Alexandre Mccabe [facility]-; Zakiya BautistaWilbur CLINICAL HISTORY: M54.12 - Radiculopathy, cervical region --- Additional Notes or Special Instructions: Evaluate for left-sided disc herniation or cervical radiculopathy, C5-6 MR cervical spine with and without gadolinium Comparison: DX/SR - XR CERVICAL SPINE 2-3 VIEWS - 02/06/25 09:41 EDT Findings: Visualized intracranial contents are unremarkable. Soft tissues of the neck are normal. Cervical cord normal size and signal. There is loss of normal cervical lordosis. Mild kyphosis at C4-C6. 2 mm of anterolisthesis of C3 on C4. 3 mm of anterolisthesis of C4 on C5. 2 mm of retrolisthesis of C5 on C6 and C6 on C7. No acute fractures or pathologic bone lesions. Mild reactive signal throughout the endplates of the cervical and upper thoracic spine, most prominently at C5-C6 and C6-C7. C2-C3:Moderate disc desiccation. Mild diffuse disc bulge. Mild facet and uncovertebral hypertrophy. Mild canal stenosis. Moderate bilateral foraminal stenosis. C3-C4:Moderate disc desiccation. Mild diffuse disc bulge with superimposed left far lateral broad-based protrusion. Moderate facet and uncovertebral hypertrophy bilaterally. Moderate canal stenosis. Severe bilateral foraminal stenosis with bilateral C4 nerve root compression. C4-C5:Moderate disc desiccation. Mild disc height loss. Mild facet and uncovertebral hypertrophy bilaterally. Mild canal stenosis. Moderate right and mild left foraminal stenosis. C5-C6:Moderate disc height loss and desiccation. Mild diffuse disc bulge /osteophyte. Moderate facet and uncovertebral hypertrophy bilaterally. Moderate canal stenosis. Minimal anterior cord flattening severe bilateral foraminal stenosis with bilateral C6 nerve root compression. C6-C7: Moderate disc height loss and desiccation. Mild diffuse disc bulge. Mild facet and uncovertebral hypertrophy bilaterally. Moderate canal stenosis. Severe bilateral foraminal stenosis with bilateral C7 nerve root compression. C7-T1:Moderate disc desiccation. Mild diffuse disc bulge. Mild facet and uncovertebral hypertrophy. Mild canal stenosis. Mild bilateral foraminal stenosis. IMPRESSION: 1. Multilevel degenerative disc and facet disease, as well as uncovertebral hypertrophy. 2. Mid/lower cervical kyphosis. 3. Multilevel canal stenoses, worst at C5-C6 where there is minimal cord flattening. 4. Multilevel foraminal stenoses, worst at C3-C4, C5-C6, and C6-C7 where there is associated intraforaminal nerve root compression. Correlation with clinical symptoms is recommended to assess relevance of these findings. This document has been electronically signed by: Girma Garcia MD on 03/03/2025 13:30:02 Assessment & Plan Assessment & Plan (1) Chronic neck pain: Code(s): M54.2 - Cervicalgia; G89.29 - Other chronic pain Category: Medical (2) Cervical spinal stenosis: Code(s): M48.02 - Spinal stenosis, cervical region Category: Medical Plan MRI did show multilevel spondylosis, at least moderate, most notable C5-6 and C6-7, moderate spinal stenosis and severe foraminal stenosis. Most likely can explain his chronic neck and shoulder pain. Exam shows weakness in the left side. We discussed treatment options. I think it would be reasonable to refer him to neuro spine and see if there are surgical options for him. If they deem this as nonsurgical, then it may be appropriate to refer him to pain management for cervical epidural injections. Patient verbalizes understanding of plan and agreement. Also offered referral back to PT for neck pain which she declines at this time. He has done several PT courses for the shoulder. He is to discuss chronic pain medications with PCP. He verbalizes that he prefers tramadol over oxycodone. Assessment and plan discussed with patient, and patient was agreeable. All questions were answered thoroughly. No further follow up needed from me. Zakiya Oviedo MD, DORIS Board Certified, [place] Board of [employer] Medicine and Rehabilitation (ABPMR) Board Certified, [place] Board of Electrodiagnostic Medicine (ABEM) Orders: Referrals Neurosurgery Referral G89.29 - Other chronic pain, M48.02 - Spinal stenosis, cervical region, M54.2 - Cervicalgia Coding Level of Care Code Est Pt Level 3 (29160) Diagnoses Chronic neck pain M54.2; G89.29 Cervical spinal stenosis M48.02
--- OUTSIDE RECORDS SUMMARY | 2025-03-06 11:49 | XMS_ITS | Patient Health Record ---
Author Organization [facility] Address [address] [place] [address] Care Team Providers Care Greaser Operator Name Role Phone Sharath JONES, [facility] Primary Care Provider Adryan Oshea Jr [phone] Reason For Referral No Information Medications Medication SIG (Take, Route, Frequency, Duration) Notes Start Date End Date Status Verapamil HCl ER 180 MG 1 tablet Orally Once a day Active Colyte with Flavor Packs 240 GM As directed Orally Over the specified time. for 1 day(s) 06/23/2015 Active Lisinopril 40 MG 2 tablet Orally Once a day Active Atenolol 100 MG 1 tablet Orally Once a day Active Social History Tobacco Use: Social History Observation Description Date Details (start date - stop date) Current Smoker NA - NA Tobacco Use/Smoking Question Answer Notes Patient is a current smoker How often do you smoke cigarettes? every day How many cigarettes a day do you smoke? 11-20 How soon after you wake up do you smoke your fir st cigarette? after 60 minutes Are you interested in quitting? Ready to quit Alcohol Screen Question Answer Notes Did you have a drink containing alcohol in the p ast year? No Points 0 Interpretation Negative Problems Problem Type SNOMED Code ICD Code Onset Dates Problem Status W/U Status Risk Notes Problem [id number] Colon cancer screening (Z12.11) Active confirmed Plan Of Treatment Future Test Test Name Order Date COLONOSCOPY 06/23/2015 Insurance Providers Payer Name Payer Address Payer Phone Subscriber Number Group Number Insured Name Patient Relationship to Insured Coverage Start Date Coverage End Date [facility] [address] [address] [place], [place] [id number] [employer] Self - patient is the insured MEDICAID OF [facility] [address] [place] [address] [phone] [id number] [employer] Self - patient is the insured Medical (General) History Medical History History ICD Code hypertension Denies CO,DM,CVA,Lung disease,renal dise ase Surgical History Surgery Date(Month/Year) rotator cuff tear repair 2012 leg surgery 2012
--- OUTSIDE RECORDS SUMMARY | 2025-03-06 11:49 | XMS_ITS | Clinical Summary ---
Author Organization [employer] Address [address] [place] [address] [address] [place] [address] Care Team Providers Care Social Service Worker Name Role Phone Constance Zamarripa MD Primary Care Provider [phone] Allergies No known active allergies Medications Januvia 100 MG tablet Take 100 mg by mouth in the morning. 2 Active doxepin (SINEquan) 10 MG capsuleIndications :Primary insomnia Take 1 capsule (10 mg) by mouth at bedtime. 90 capsule 3 3 Active amLODIPine (Norvasc) 5 MG tabletIndications: [...] THE MORNING 90 tablet 3 5 Active sildenafil (Viagra) 100 MG tabletIndications: Erectile disorder due to medical condition in male patient TAKE ONE TABLET BY MOUTH EVERY MORNING 10 tablet 11 Active Active Problems Problem Noted Date Diagnosed Date Diabetes mellitus type II, non insulin dependent 09/15/2022 Erectile disorder due to medical condition in na le patient 09/15/2022 Essential (primary) hypertension 09/15/2022 GERD without esophagitis 09/15/2022 Encounters Date Type Department Care Team Description 02/02/2025 Refill [facility] MEDICAL [address] [place] [address] Constance Zamarripa MD Erectile disorder due to [...] Insurance MEDICARE Member Subscriber Plan / Payer ( fective 2022-Present) Name:Jose Ansari Member ID:[id number] Relation to Subscriber:Self Name:Jose Ansari Subscriber ID:[id number] Payer ID:[facility] Group ID:Not on file Type:Medicare Address: [facility] [address] [address] [facility] Care Teams Social Service Worker Relationship Specialty Start Date End Date Constance Zamarripa MD [address] [facility] [place] [address] PCP - General Family Medicine 09/14/22
== END 2025-03-06 12:10 | disposition home or self-care (01) ==
LOC: HO.HOS 11:46
PROVIDERS: PCP Nurse Practitioner Family; Visit Provider Physical Medicine & Rehabilitation
DX: M54.2 Cervicalgia (principal); G89.29 Other chronic pain; M48.02 Spinal stenosis, cervical region
CPT/HCPCS: 99213

== ENCOUNTER → 2025-03-06 11:46 | Outpatient (BNVA) | payer MEDICARE, MEDICAID, SELFPAY | PROVIDERS: PCP Nurse Practitioner Family; Visit Provider Physical Medicine & Rehabilitation | DX: M48.02 Spinal stenosis, cervical region (principal); M54.2 Cervicalgia; G89.29 Other chronic pain | CPT/HCPCS: 99212 ==

== ENCOUNTER 2025-03-24 12:33 | Outpatient (AMB) | payer MEDICARE, MEDICAID, SELFPAY ==
--- NOTE | 2025-03-24 12:43 | HO.SPINEOV ---
Intake Visit Reasons: Neck Pain Intake Note: Mr. Ansari is here today c/o neck pain. [place] [facility] 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 He is a 70 year old male who comes in today for evaluation of severe neck pain, and left shoulder pain. He reports that he has a history of bilateral shoulder replacement surgeries. Last surgery was 07/[address] Long. He began experiencing fairly severe neck pain and left shoulder pain around October of 2023. He was evaluated by [facility] [place] and had the aforementioned surgery in July. Unfortunately he reports his shoulder pain did not get any better after surgery, and he continued to experience severe neck pain. He was subsequently referred to our office after having a cervical MRI completed showing fairly significant degeneration in the cervical spine. He reports that his neck pain is a 9/10 constant throughout the day. A worsens with upper extremity activities such as attempting to shave or pick up operator heavier objects. He reports a very occasional shooting pain down his left arm, but reports this is not a significant issue for him. He denies any issues with dexterity, balance, bowel / bladder control. He reports good hand online education manager strength and does not drop objects. He reports no numbness or tingling in his upper / lower extremities. He has been to physical therapy in an effort to help mitigate his pain, however felt this was not helpful. He attempted cortisone injections in the neck which he also reports were not helpful for him. He has attempted dscu-yda-badisdz medications including Tylenol, ibuprofen, leave without significant relief of pain. He has attempted prescription medications such as Celebrex which he found was not particularly helpful. He is currently taking tramadol to help mitigate the pain, and feels this too only provides temporary relief. PMH: T2DM last A1C 6.2 in November 2024, Hx of alcohol dependence, GERD, Seizures, Hyperlipidemia, Hypertension, History of total replacement of left shoulder joint, Hx of appendectomy, H/O rotator cuff surgery, History of ankle surgery. Social hx: History of alcohol use disorder in remission. Patient denies current smoking or substance use / ETOH use. Medications: Acetaminophen, amlodipine, atorvastatin, docusate sodium, Jardiance, lisinopril, metformin, lancets, pantoprazole, sildenafil, tries appetite, tramadol. Allergies: NKDA. Physical exam: The patient has 5/5 strength in his bilateral lower extremities. He has about 3/5 strength with left sided handgrip, and about 4/5 strength with left sided biceps / triceps testing. His left sided interossei strength seems full and I would rate it as a 5/5. Some of his strength testing on the left side may be limited due to significant pain when attempting strength testing. He has no significant sensational deficits on examination. He ambulates well with a nonantalgic non spastic gait. (-) ann's, (-) clonus, (-) bialteral straight leg raise. Imaging review: MRI of the cervical spine [place] [facility] shows severe spondylosis of the cervical spine with a severe swan neck kyphotic deformity most notably at C5-6, C6-7. Cervical spine X-ray imaging also confirms this, and shows significant anterior osteophyte growth and DDD at C5-6, C6-7. There is no evidence of cord signal change or myelomalacia, and only what appears to be moderate central canal stenosis worse at C5-6. Impression: Jose is a 70 year old male who comes in today for evaluation of severe persistent neck pain and left shoulder pain, despite having left-sided rotator cuff surgery with our colleagues in Orthopedics in July of 2024. In terms of his left shoulder pain, I do not believe that there is a specific surgical intervention that we could offer that would have a high likelihood of relieving this pain. In regards to his neck pain, this is most likely related to the severe degeneration seen in his cervical spine, most prominent at C5-6, C6-7 where he has a kyphotic deformity of the cervical spine. There is fairly significant osteophyte growth on x-ray imaging, therefore I would like to send the patient for a CT scan of his cervical spine before making any surgical recommendations regarding his neck. In his fairly likely based on the osteophyte growth seen that he may have auto fused these levels already. This would not completely disqualify him from surgical intervention to help resolve his pain, however it would change the anticipated plan of care for the patient. I will follow up with him after his CT scan is complete. Thank you for allowing us to care for your patient. The total time spent with this visit with this patient was 45 minutes reviewing history, physical exam, MRI & Xray imaging review, and implementation of treatment plan or further diagnostic testing Daljit Murray MD,PhD [facility] Coding Level of Care Code New Pt Level 4 (32131) Diagnoses Limon neck deformity of cervical spine M43.8X2
--- OUTSIDE RECORDS SUMMARY | 2025-03-24 13:17 | XMS_ITS | Patient Health Record ---
Author Organization [facility] Address [address] [place] [address] Care Team Providers Care Finisher [employer] Name Role Phone Sharath JONES, [facility] Primary Care Provider Adryan Oshea Jr Reason For Referral No Information Medications Medication [...] Problem Status W/U Status Risk Notes Problem [id number] Colon cancer screening (Z12.11) Active confirmed Plan Of Treatment Future Test Test Name Order Date COLONOSCOPY 06/23/2015 Insurance Providers Payer Name Payer Address Payer Phone Subscriber Number Group Number Insured Name Patient Relationship to Insured Coverage Start Date Coverage End Date [facility] [address] [address] [place], [place] [id number] TRIPP [employer]ALE Self - patient is the insured MEDICAID OF [facility] [address] [place] [address] [phone] [id number] TRIPP GALE Self - patient is the insured Medical (General) History Medical History History ICD Code hypertension Denies NV,DM,CVA,Lung disease,renal dise ase Surgical History Surgery Date(Month/Year) rotator cuff tear repair 2012 leg surgery 2012
--- OUTSIDE RECORDS SUMMARY | 2025-03-24 13:17 | XMS_ITS | Clinical Summary ---
Author Organization [facility] Address [address] [place] [address] [address] [place] [address] Care Team Providers Care Cooler Service Supervisor Name Role Phone Constance Zamarripa MD Primary Care Provider [phone] Allergies No known active allergies Medications Januvia [...] Type Department Care Team Description 02/02/2025 Refill [facility] [address] [place] [id number] Constance Zamarripa MD Erectile disorder due to [...] Payer ( fective 2022-Present) Name:Jose Ansari Member ID:[id number] Relation to Subscriber:Self Name:Jose Ansari Subscriber ID:[id number] Payer ID:[facility] Group ID:Not on file Type:Medicare Address: [facility] [address] [address] [facility] Care Teams Cooler Service Supervisor Relationship Specialty Start Date End Date Constance Zamarripa MD [facility] [place] [address] PCP - General Family Medicine 09/14/22
== END 2025-03-24 13:26 | disposition home or self-care (01) ==
LOC: HO.HNS 12:34
PROVIDERS: PCP Nurse Practitioner Family; Visit Provider Physician Assistant
DX: M43.8X2 Other specified deforming dorsopathies, cervical region (principal)
CPT/HCPCS: 99204

== ENCOUNTER → 2025-03-24 12:33 | Outpatient (BNVA) | payer MEDICARE, MEDICAID, SELFPAY | PROVIDERS: PCP Nurse Practitioner Family; Visit Provider Physician Assistant | DX: M43.8X2 Other specified deforming dorsopathies, cervical region (principal) | CPT/HCPCS: 99202 ==

== ENCOUNTER 2025-03-24 13:42 | Outpatient (REF) | payer MEDICARE, MEDICAID, SELFPAY ==
[2025-03-24 16:12] LABS: Appearance Urine Clear; Glucose Urine UA >=1000 mg/dL (Negative); PH 5.5 (5.0-9.0); Specific Gravity - Urine >= 1.030 (1.005-1.025); UMIC TRIGGER UACC YES
== END 2025-03-24 13:43 | disposition home or self-care (01) ==
LOC: HO.HMGCLDS 13:42
PROVIDERS: PCP Nurse Practitioner Family; Visit Provider Nurse Practitioner Family
DX: E11.9 Type 2 diabetes mellitus without complications (principal)
CPT/HCPCS: 81001; 82043; 82570; 83036; 96127; 99212

== ENCOUNTER 2025-03-24 13:51 | Outpatient (AMB) | payer MEDICARE, MEDICAID, SELFPAY ==
--- NOTE | 2025-03-24 13:57 | A.OFFPC_ITS ---
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: No Accompanied by: Self / Same As Patient Allergies No Known Allergies Allergy (Verified 03/24/25 14:31) Medication List - Last Reconciled 03/24/25 by TED Baca acetaminophen 650 mg (2 x 325 mg) PO Q6H PRN 30 days amlodipine 10 mg PO DAILY atorvastatin 40 mg PO BEDTIME blood sugar diagnostic ([employer]uch Ultra Test strips) USE TO TEST BLOOD SUGAR ONCE A DAY blood-glucose meter ([employer] Ultra2 Meter) As directed blood-glucose meter As directed docusate sodium 100 mg PO BID 30 days empagliflozin (Jardiance) 25 mg PO DAILY lancets ([employer]ocha[employer]uch Delica Plus Lancet) Test blood sugar once a day lancets (Mocha[employer]cnuch Delica Plus Lancet) Check blood sugar once daily as directed lancing device with lancets ([employer]Touch Delica Plus Lancing Device kit) As directed lisinopril 40 mg PO DAILY metformin 1,000 mg PO BID 90 days pantoprazole 40 mg PO BEDTIME tramadol 50 mg PO DAILY PRN 20 days Tobacco use date assessed: 03/24/25 Fall risk assessment: No Falls in past year Last assessed Fall Risk: 03/24/25 Dental Screening Dental Screen Date: 03/24/25 Did you have a dental visit in the last 12 months?: No Did you have a dental problem in the last 6 months where you did not have access to dental care?: No Was dental information given to patient?: Patient declined HPI 4 month follow up HPI Details Chief Complaint The patient presents with ongoing neck to shoulder pain and discomfort with radicular symptoms in the left upper extremity. History of Present Illness The patient is a 70-year-old male presenting with management of Diabetes Mellitus Type 2 and cervical radiculopathy. The patient's Diabetes Mellitus Type 2 is currently managed with Mounjaro, Jardiance, and Metformin. His recent HbA1c level is 7.2%, indicating suboptimal glycemic control. He has been advised to monitor his dietary sugar intake, as exemplified by an incident involving a sugary beverage. He is hesitant to increase his Mounjaro dosage due to concerns about nausea. The patient also reports ongoing cervical radiculopathy, characterized by neck to shoulder pain and radicular symptoms in the left upper extremity. He is under the care of a spinal specialist team and is scheduled for a CT scan to evaluate the need for potential surgical intervention, including possible fusion. His blood pressure is stable, though he experienced transient tachycardia likely related to pain. Social History - Nutritional intake: Patient is working on dietary changes to reduce sugar intake. Health Maintenance - Diet: Advised to monitor and reduce palacio gar intake. Review of Systems - Neurological: Denies neuropathy, repor ts radicular symptoms in left upper extremity. - Cardiovascular: Denies chest pain, rep orts transient tachycardia likely due to pain. Physical Exam General: Cooperative, healthy appearing, comfortable, no acute distress and well developed Orientation: Patient oriented x3 Limitations: No limitations Head: Normal to inspection Ears: Hearing grossly normal bilaterally Nose: Normal external nose present Face and sinus: Normal facial exam Eyes: Appearance normal, both eyes and all related structures Neck: Normal visual inspection and Yes full ROM, ongoing cervical neck issue, possible surgical candidate Respiratory: Normal respiratory effort and able to speak in complete sentences. Clear to auscultation bilaterally Cardiovascular: Regular rate and rhythm. Normal S1 and S2 GI: Normal to inspection. Soft to palpation and nontender Skin: No rashes or lesions noted Neuro: Patient oriented x3 Extremities: feet intact, + sensation Results - Labs: HbA1c 7.2% Plan The management plan for Diabetes Mellitus Type 2 includes continued use of Mounjaro, Jardiance, and Metformin, with an emphasis on dietary modifications to reduce sugar intake. The patient is advised to be cautious with sugary beverages and to consider increasing Mounjaro dosage if tolerated, despite concerns about nausea. For cervical radiculopathy, the patient is under the care of a spinal specialist and is scheduled for a CT scan to assess the need for surgical intervention, including potential fusion. Pain management and monitoring of symptoms are recommended, with attention to any changes in neurological status. Patient was informed and verbally consented to the use of an ambient scribe for clinic note documentation during this visit. Discussion Notes I discussed with the patient the importance of managing his Diabetes Mellitus Type 2 through medication adherence and dietary changes, particularly reducing sugar intake. We also reviewed the plan for his cervical radiculopathy, including the upcoming CT scan and potential surgical options. Patient Instructions - Continue taking Mounjaro, Jardiance, a nd Metformin as prescribed. - Monitor and reduce sugar intake, espec ially in beverages. - Follow up with the spinal specialist f or the scheduled CT scan. [facility] Medical History Alcohol dependence in sustained full remission GERD (gastroesophageal reflux disease) Seizures Hyperlipidemia Hypertension Diabetes type 2, controlled Surgical History History of total replacement of left shoulder joint H/O colonoscopy Hx of appendectomy H/O rotator cuff surgery History of ankle surgery Family History Father Diabetes Social History Household Members: Spouse Housing: Apartment Are you a primary morning caregiver to a significant other at home: No Do you presently have visiting nurse or other home services: No Alcohol intake: former Patient Tobacco Use Status: Never used Tobacco e-Cigarette/Vaping Use: Never Used service: No Current occupational status: retired Current 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 1. Little interest or pleasure in doing things: more than half the days 2. Feeling down, depressed, or hopeless: several days 3. Trouble falling or staying asleep, or sleeping too much: more than half the days 4. Feeling tired or having little energy: several days 5. Poor appetite or overeating: several days 6. Feeling bad about yourself - or that you are a failure or have let yourself or your family down: not at all 7. Trouble concentrating on things, such as reading the newspaper or watching television: not at all 8. Moving or speaking so slowly that other people could have noticed. Or the opposite - being so fidgety or restless that you have been moving around a lot more than usual: not at all 9. Thoughts that you would be better off or of hurting yourself in some way: not at all Total score: 7 Depression Screening Interpretation: Positive (declines therapist, denies any si or hi, more situational) Depression Screening Follow-up: Existing condition Depression Screening Done: Yes 51566 - PHQ-9 Billing: Yes Source: Developed by Drs. Jason Donovan, Cinthia Mclean, Lester Hunt and colleagues, with an educational phyllis from [employer]. Thrive Questionnaire Date Thrive assessed: 08/18/24 I am a: Patient What is your living situation today?: I choose not to answer this question Within the past 12 months, did the food you bought not last and you didn't have the money to get more?: I choose not to answer this question Within the past 12 months, did you worry whether your food would run out before you got money to buy more?: I choose not to answer this question Do you have trouble paying for medicines?: I choose not to answer this question Do you have trouble getting transportation to medical appointments?: I choose not to answer this question Do you have trouble paying your heating and electricity bill?: I choose not to answer this question Do you have trouble taking care of your child, family member or friend?: I choose not to answer this question Do you have trouble with day-to-day activities such as bathing, preparing meals, shopping, managing finances, etc.?: I choose not to answer this question Are you currently unemployed and looking for a job?: I choose not to answer this question Are you interested in more education?: I choose not to answer this question Currently or been in a relationship where the following occur: I choose not to answer THRIVE Score: 0 ADITI-7 AMB Questionnaire ADITI-7 Date ADITI - 7 assessed: 03/24/25 Feeling nervous, anxious, or on edge: 0 = Not at all Not being able to stop or control worryin = Not at all Worrying too much about different things: 0 = Not at all Trouble relaxin = Not at all Being so restless that it is hard to sit still: 0 = Not at all Becoming easily annoyed or irritable: 0 = Not at all Feeling afraid as if something awful might happen: 0 = Not at all Total ADITI-7 score (0-4 normal; 5-9 mild; 10-14 moderate; 15-21 severe): 0 Source: Developed by Drs. Jason Donovan, Cinthia Mclean, Lester Hunt and colleagues, with an educational phyllis from [employer]. ADITI-7 Assessment Billing ADITI-7 Assessment Tool: ADITI-7 Assessment 87536 Physical exam (Primary Care) Vital Signs: Last Vital Signs Temp 98.9 F 03/24/25 14:00 Pulse 106 H 03/24/25 14:00 Resp 16 03/24/25 14:00 BP 104/62 03/24/25 14:00 Pulse Ox 98 03/24/25 14:00 Oxygen Delivery Method Room Air 03/24/25 14:00 BMI result Body Mass Index 29.9 Tobacco/Smoking Status: Tobacco use Status Tobacco use date assessed 03/24/25 03/24/25 14:09 Patient Tobacco Use Status Never used Tobacco 03/24/25 13:57 e-Cigarette/Vaping Use Never Used 03/24/25 13:57 PHQ-9: PHQ-9 Score PHQ-9: Total score 7 03/24/25 14:09 Depression Screening Interpretation: Positive (declines therapist, denies any si or hi, more situational) Depression Screening Follow-up: Existing condition Thrive Assessment: Date of Thrive Assessment Date Thrive assessed 08/18/24 03/24/25 13:57 Currently or been in a relationship where the following occur: I choose not to answer Results AMB Hemoglobin A1c AMB Hemoglobin A1c 7.2 % Last Edit by Summer Stark MA on 03/24/25 14:13 Results Reviewed Results Reviewed: Laboratory Last Values Hgb A1c (Clinic) 7.2 % (4.0-6.0) H 03/24/25 13:58 Coding Level of Care Code Est Pt Level 3 (23304) Diagnoses Diabetes type 2, controlled E11.9 Screening for prostate cancer Z12.5 Additional Codes ADITI-7 Assessment Billing - ADITI-7 Assessment Tool: ADITI-7 Assessment 75292 ([id number]) PHQ-9 - 56652 - PHQ-9 Billing: Yes ([id number]) Assessment & Plan Assessment & Plan (1) Diabetes type 2, controlled: Code(s): E11.9 - Type 2 diabetes mellitus without complications Category: Medical (2) Screening for prostate cancer: Code(s): Z12.5 - Encounter for screening for malignant neoplasm of prostate Category: Medical Plan . Orders: Orders Comprehensive [place]. Panel Fast Today E11.9 - Type 2 diabetes mellitus without complications UA CC w/rflx Micro + Cult 1 Month E11.9 - Type 2 diabetes mellitus without complications Prostate Specific Antigen Scr Today Z12.5 - Encounter for screening for malignant neoplasm of prostate AMB Hemoglobin A1c Today Z13.9 - Encounter for screening, unspecified Complete Blood Count Auto Diff Today E11.9 - Type 2 diabetes mellitus without complications TSH reflex Free T4 Today E11.9 - Type 2 diabetes mellitus without complications Lipid Panel Today E11.9 - Type 2 diabetes mellitus without complications Medications: Refilled tirzepatide takes on Mondays, please fill this dose 2.5 mg (0.5 mL) subcut QWEEK 2 mL 2RF E11.9 - Type 2 diabetes mellitus without complications tirzepatide takes on Mondays, please fill this dose 2.5 mg (0.5 mL) subcut QWEEK 2 mL 2RF E11.9 - Type 2 diabetes mellitus without complications
[2025-03-24 14:00] VITALS: BP 104/62; PULSE 106; RESP 16; TEMP 37.2; O2SAT 98; BMI 29.9
== END 2025-03-24 14:55 | disposition home or self-care (01) ==
LOC: HO.HMCC 13:52
PROVIDERS: PCP Nurse Practitioner Family; Visit Provider Nurse Practitioner Family
DX: E11.9 Type 2 diabetes mellitus without complications (principal); Z12.5 Encounter for screening for malignant neoplasm of prostate; Z13.9 Encounter for screening, unspecified

== ENCOUNTER 2025-04-04 07:07 | Outpatient (REF) | payer MEDICARE, MEDICAID, SELFPAY ==
--- NOTE | ~2025-04-04 | CT_ITS ---
CLINICAL HISTORY: M43.8X2 - Other specified deforming dorsopathies, cervical region CT CERVICAL SPINE WITHOUT CONTRAST Comparison: MR - MR CERVICAL SPINE WO CON - 03/01/25 08:48 EDT Findings: Redemonstration of reversal of the normal cervical lordosis. There is mild kyphosis. Mild dextroscoliosis. Stable minimal subluxations C3-4, C4-5, C5-6 and C6-7, likely degenerative. Severe disc space narrowing with large endplate osteophytes at C5-6 and C6-7. Tqqc-ww-kfsozbjk narrowing in the remaining disc levels. Moderately severe facet degenerative changes, left greater than right. No large disc herniation or high-grade spinal stenosis. No acute fracture, dislocation or destructive osseous lesion. Visualized intracranial contents are unremarkable. Unenhanced soft tissues of the neck are grossly intact. Mild scarring in the lung apices. IMPRESSION: 1. No acute fracture in the cervical spine. 2. Kyphoscoliosis and degenerative changes. This document has been electronically signed by: Jael Crain DO on 04/06/2025 15:21:50
== END 2025-04-04 07:08 | disposition home or self-care (01) ==
LOC: HO.CT 07:07
PROVIDERS: PCP Nurse Practitioner Family; Visit Provider Physician Assistant
DX: M43.8X2 Other specified deforming dorsopathies, cervical region (principal)
CPT/HCPCS: 72125

== ENCOUNTER → 2025-04-04 07:08 | Outpatient (BNV) | payer MEDICARE, MEDICAID, SELFPAY | PROVIDERS: PCP Nurse Practitioner Family; Visit Provider Radiology Diagnostic Radiology | DX: M41.82 Other forms of scoliosis, cervical region (principal); M50.30 Other cervical disc degeneration, unspecified cervical region | CPT/HCPCS: 72125 ==

== ENCOUNTER 2025-04-17 11:06 | Outpatient (AMB) | payer MEDICARE, MEDICAID, SELFPAY ==
--- NOTE | 2025-04-17 11:33 | A.SPINEOV_ITS ---
Intake Visit Reasons: discuss sx Intake Note: Mr. Ansari is here today to discuss surgery. 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 He was previously seen by BRO Hanks and comes back to see me to discuss possible surgery. He states that the pain is on the left side of his neck radiating to the top of the shoulder blade and inferior part of the shoulder blade. The pain does not go into the arm. Denies numbness or weakness. He takes tramadol. He had injections done without success. Physical therapy was of no benefit. Eventually had a shoulder replacement done for the symptom which did not give him any relief. On exam there is a positive Spurling test with radiating pain down the left side of his neck. Motor and sensory exam are intact. I reviewed imaging of the cervical spine, including an MRI, CT and regular x- rays. The MRI of the cervical spine shows an anterolisthesis C3-C4 and severe left C4 foraminal stenosis. The x-ray confirms the anterolisthesis. The CT of the cervical spine shows a spontaneous anterior fusion of C4-C5. Overall, there was an swan deformity of the neck and severe degenerative disc disease C5-6 C6- 7. In summary, this patient is suffering from left-sided neck pain radiating to his shoulder blade. This radiculopathy is most likely associated with the anterolisthesis C3-C4 and associated severe left foraminal stenosis. I would not correct his cervical deformity at this stage. I did offer him an anterior diskectomy and fusion C3-C4 with an anterior plate in an attempt to address his radicular neck pain. I explained the procedure, possible complications he wants to proceed. He is scheduled for 05/21/2025. I spent 35 minutes in his consult reviewing imaging and discussing plan of care. Rodolfo Murray MD, PhD Spine Fellowship Trained Neurosurgeon Director, [facility] Coding Level of Care Code Est Pt Level 4 (38207) Diagnoses Degenerative cervical disc M50.30 Cervical spinal stenosis M48.02
--- OUTSIDE RECORDS SUMMARY | 2025-04-17 12:13 | XMS_ITS | Patient Health Record ---
Author Organization [facility] Address [address] [place] [address] Care Team Providers Care Foreign Exchange Position Clerk Name Role Phone Sharath JONES, [facility] Primary Care Provider Adryan Oshea Jr [phone] Reason For Referral No Information Medications Medication [...] Problem Status W/U Status Risk Notes Problem [id number] Colon cancer screening (Z12.11) Active confirmed Plan Of Treatment Future Test Test Name Order Date COLONOSCOPY 06/23/2015 Insurance Providers Payer Name Payer Address Payer Phone Subscriber Number Group Number Insured Name Patient Relationship to Insured Coverage Start Date Coverage End Date [facility] [address] [address] [place], [place] [id number] TRIPP GALE Self - patient is the insured MEDICAID OF [facility] [address] [place] [address] [phone] [id number] TRIPP GALE Self - patient is the insured Medical (General) History Medical History History ICD Code hypertension Denies [place],DM,CVA,Lung disease,renal dise ase Surgical History Surgery Date(Month/Year) rotator cuff tear repair 2012 leg surgery 2012
--- OUTSIDE RECORDS SUMMARY | 2025-04-17 12:13 | XMS_ITS | Clinical Summary ---
Author Organization [employer] Address [address] [place] [address] [address] [place] [address] Care Team Providers Care Forestry Instructor Name Role Phone Constance Zamarirpa MD Primary Care Provider [phone] Allergies No known active allergies Medications Januvia [...] Type Department Care Team Description 02/02/2025 Refill [facility] MED[facility] [address] [place] [id number] Constance Zamarripa MD Erectile disorder due to [...] Payer ( fective 2022-Present) Name:Jose Ansari Member ID:[id number] Relation to Subscriber:Self Name:Jose Ansari Subscriber ID:[id number] Payer ID:[facility] Group ID:Not on file Type:Medicare Address: [facility] [address] [address] [facility] Care Teams Forestry Instructor Relationship Specialty Start Date End Date Constance Zamarripa MD [address] [facility] [place] [address] PCP - General Family Medicine 09/14/22
== END 2025-04-17 12:10 | disposition home or self-care (01) ==
LOC: HO.HNS 11:07
PROVIDERS: PCP Nurse Practitioner Family; Visit Provider Neurological Surgery
DX: M50.30 Other cervical disc degeneration, unspecified cervical region (principal); M48.02 Spinal stenosis, cervical region
CPT/HCPCS: 99214

== ENCOUNTER → 2025-04-17 11:06 | Outpatient (BNVA) | payer MEDICARE, MEDICAID, SELFPAY | PROVIDERS: PCP Nurse Practitioner Family; Visit Provider Neurological Surgery | DX: M48.02 Spinal stenosis, cervical region (principal); M50.30 Other cervical disc degeneration, unspecified cervical region | CPT/HCPCS: 99212 ==

== ENCOUNTER 2025-05-21 07:43 | Day surgery (SDC) | payer MEDICARE, MEDICAID, SELFPAY ==
--- OUTSIDE RECORDS SUMMARY | 2025-04-20 07:59 | XMS_ITS | Clinical Summary ---
Author Organization [employer] Address [address] [place] [address] 7t [place] [address] Care Team Providers Care Pageant Director Name Role Phone Constance Zamarripa MD Primary Care Provider [phone] Allergies No known active allergies Medications Januvia [...] Type Department Care Team Description 02/02/2025 Refill [facility] MEDICAL [address] [place] [id number] Constance Zamarripa MD Erectile disorder due to [...] 12/07/2023 12/06/2022 COVID-19 Vaccine ( - season) 2025 08/29/2021, 02/05/2021, 01/12/2021 Influenza Vaccine (#1) 2025 2, 07/11/2021, 07/21/2020, Additional history exists RSV [...] Plan / Payer ( fective 2022-Present) Name:Jose Ansair Member ID:[id number] Relation to Subscriber:Self Name:Jose Ansari Subscriber ID:[id number] Payer ID:[facility] Group ID:Not on file Type:Medicare Address: [facility] [address] [address] [facility] Care Teams Pageant Director Relationship Specialty Start Date End Date Constance Zamarripa MD [address] [facility] [place] [address] PCP - General Family Medicine 09/14/22
--- OUTSIDE RECORDS SUMMARY | 2025-04-20 07:59 | XMS_ITS | Patient Health Record ---
Author Organization [facility] Address [address] [place] [address] Care Team Providers Care Conductor Sleeping Car Name Role Phone Sharath [facility]ON[facility], [facility] Primary Care Provider Adryan Oshea Jr [...] Problem Status W/U Status Risk Notes Problem [id number] Colon cancer screening (Z12.11) Active confirmed Plan Of Treatment Future Test Test Name Order Date COLONOSCOPY 06/23/2015 Insurance Providers Payer Name Payer Address Payer Phone Subscriber Number Group Number Insured Name Patient Relationship to Insured Coverage Start Date Coverage End Date [facility] [address] [address] [place], [place] [id number] TRIPP GALE Self - patient is the insured MEDICAID OF [facility] [address] [place] [address] [phone] [id number] TRIPP GALE Self - patient is the insured Medical (General) History Medical History History ICD Code hypertension Denies GA,DM,CVA,Lung disease,renal dise ase Surgical History Surgery Date(Month/Year) rotator cuff tear repair 2012 leg surgery 2012
[2025-05-14 12:17] VITALS: BP 122/61; PULSE 91; RESP 17; O2SAT 96; BMI 30.3
--- NOTE | 2025-05-19 15:28 | PM.DS ---
DS: Providers Provider Date of Service: 05/21/25 Date of discharge: 05/21/25 Primary care physician: TED Matos Admitting clinician: Rodolfo Murray DS: Diagnosis Discharge Diagnosis (1) Cervical spinal stenosis: Status: Acute DS: Summary Time Attestation Discharge Coordination Time (in mins): 5 Quality: Safe Use of Opioids Does Pt have an Active Cancer Diagnosis on the Problem List?: No Quality: Stroke Does the patient have a stroke diagnosis?: No Physical Exam Vital Signs: Vital Signs: Last Vital Signs Pulse 91 05/14/25 12:17 Resp 17 05/14/25 12:17 BP 122/61 05/14/25 12:17 Pulse Ox 96 05/14/25 12:17 O2 Del Method Room Air 05/14/25 12:17 BMI result Body Mass Index 30.3 Discharge Plan Discharge Patient Disposition: Home, Self-Care Referrals: Alexandre Mccabe FNP-BC [Primary Care Provider, Internal Medicine] - 1 Week Discharge Medications: New docusate sodium [Colace] 100 mg capsule 100 mg PO BID Qty: 20 0RF oxycodone 5 mg tablet 5 mg PO Q4H PRN (Reason: pain) Qty: 20 0RF Rx Instructions: Partial Fill upon patient request. Continued (DME) blood-glucose meter [OneTouch Ultra2 Meter] Misc See Rx Instructions .Route Qty: 1 0RF Rx Instructions: As directed (DME) lancets [OneTouch Delica Plus Lancet] 33 gauge misc See Rx Instructions .Route Qty: 100 1RF Rx Instructions: Test blood sugar once a day (DME) lancing device with lancets [OneTouch Delica Plus Lanc Dev] Kit See Rx Instructions .Route Qty: 1 0RF Rx Instructions: As directed (DME) lancets [OneTouch Delica Plus Lancet] 30 gauge misc See Rx Instructions .Route Qty: 100 2RF Rx Instructions: Check blood sugar once daily as directed (DME) OneTouch Ultra Test Strip See Rx Instructions .ROUTE .COMPLEX Qty: 300 3RF Dose Instruction: USE TO TEST BLOOD SUGAR ONCE A DAY Rx Instructions: USE TO TEST BLOOD SUGAR ONCE A DAY Mounjaro 2.5 mg/0.5 mL pen injector 2.5 mg subcut QWEEK Qty: 2 2RF Patient Comments: patient takes every Sunday Rx Instructions: takes on Mondays, please fill this dose metformin 1,000 mg tablet 1,000 mg PO BID 90 Days Qty: 180 1RF Jardiance 25 mg tablet 25 mg PO DAILY Qty: 90 1RF amlodipine 10 mg tablet 10 mg PO QAM Qty: 90 1RF tramadol 50 mg tablet 50 mg PO BID Rx Instructions: cannot take concurrently with cyclobenzaprine lisinopril 40 mg tablet 40 mg PO DAILY atorvastatin 40 mg tablet 40 mg PO BEDTIME pantoprazole 40 mg tablet,delayed release (DR/EC) 40 mg PO BEDTIME (DME) blood-glucose meter Kit See Rx Instructions .Route Qty: 1 0RF Rx Instructions: As directed Discharge Orders: Discharge Order (Routine); Ordered 05/21/25 Ordered By: Garrett Renteria Diet: Advance to usual diet Activity on Discharge: As tolerated Activity Restrictions/Additional Instructions: After your spinal surgery we ask you to observe the following restrictions/guidelines: Activity: It is normal to feel some discomfort as you increase your activity, but that will improve with time. We ask you avoid heavy lifting or acitivities that cause pain. As a general rule, 8lbs is a safe limit for lifting right after surgery. Walk as much as you feel comfortable but not to exhaustion. You will feel extra tired the first few days after surgery. Stay well hydrated. It is OK to walk up and down stairs You may return to driving when you are off narcotics (such as vicodin, oxycodone, dilaudid, etc), and you are back to normal functional capacity. If you have any concerns please check with office before driving. Return to work is specific to each patient and each surgery, so please speak with your doctor/PA at first follow up. Please bring paperwork such as FMLA at that time if you need it filled out. Medications: For optimum pain control, it is best to start with a combination of 500 mg of Tylenol every 4 hours with 600 mg of Motrin every 8 hours, and use narcotics as needed in between for breakthrough pain. We will give you a short supply of narcotics after surgery (usually one weeks worth). If you need more please call the office but do not use more than prescribed. You will need to give our office 48 hours notice if you need narcotics refilled and we do not fill narcotics on weekends or evenings. If you are on a narcotic, it is a good idea to take a stool softener such as colace or senna to avoid constipation If you take blood thinner such as aspirin, Plavix, Coumadin, Effient, Eliquis etc for conditions such as Afib, DVT, Pulmonary embolus, coronary disease, stents etc please speak with your surgeon about specific details as to when you can resume these medications. Follow up: Please call the office, , after surgery to arrange a 3 week follow up for wound check. Wound Care: You may remove your dressing on the first day after surgery. ?You may ?leave open to air. Please do not remove the steri strips underneath. they will fall off on their own in one week. IT IS NORMAL FOR THE WOUND TO OOZE OR BE BLOODY FOR A FEW DAYS AFTER SURGERY. ?IF THIS HAPPENS JUST PLACE NEW DRESSING OVER IT TO AVOID STAINING CLOTHES. You may shower on post op day # 1 We ask that you do not let the water soak the wound. If it does get wet, just towel dry lightly. Please do not scrub your incision or place any type of chemical/ointment on the wound. No tub baths, pools or jacuzzis for one month. If you have any leaking or redness from your wound, or fevers, please call office Print Language: Other
--- NOTE | ~2025-05-21 | FL_ITS ---
EXAMINATION: FL GUIDANCE ONLY HISTORY: C3-4 ACDF COMPARISON: Correlation is made with a CT of the cervical spine dated 04/04/2025. TECHNIQUE: Fluoroscopy time: 6.5 seconds. Cumulative Dose: 1.4544 mGy. DAP: 0.4534 Gycm2 Images: 2. FINDINGS: Fluoroscopic spot films of the cervical spine demonstrate anterior cervical disc fusion at C3-4. FL/FL guidance in OR IMPRESSION: Fluoroscopy during procedure. Please see procedure report for additional information. Electronically signed by: Jason Riddle MD 05/21/2025 12:22 PM EDT
[2025-05-21 08:18] LABS: Glucose, Whole Blood 174 mg/dL (60-115)
[2025-05-21] MEDS: Lactated Ringers 1,000 ML 100 ML IVCONT (08:21)
--- NOTE | 2025-05-21 10:19 | HO.ANESPROP2 ---
Documented by User: Madisyn Castillo NP 05/14/25 12:44 HPI - Anesthesia Eval Consult details Narrative: 70yo M for C3-4 Ant Cerv Discectomy w/ fusion, 05/21/25 s/p rotator cuff repair 07/2024 with GA-ETT 7 - no anesthesia issues No recent illness No CP/SOB with >4 mets Hx ETOH: None x 10 years. 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 (Acute) Muscle spasm (Acute) Rotator cuff tear, left (Acute) Rotator cuff tear, right (Acute) Impingement syndrome of left shoulder (Acute) Left shoulder pain (Acute) H/O rotator cuff surgery (Acute) Diabetes type 2, controlled (Acute) Hypertension (Acute) Hyperlipidemia (Acute) Past Medical History Medical History Habitual snoring Alcohol dependence in sustained full remission GERD (gastroesophageal reflux disease) Seizures Hyperlipidemia Hypertension Diabetes type 2, controlled Family History Family History Father Diabetes Family history of problems with anesthesia: No Surgical History Surgical History History of total replacement of left shoulder joint (~07/29/24) H/O colonoscopy Hx of appendectomy H/O rotator cuff surgery History of ankle surgery History of Problems with Anesthesia: No Social History Social History Household Members: Spouse Housing: Apartment Are you a primary intensive care medicine specialist to a significant other at home: No Do you presently have visiting nurse or other home services: No Alcohol intake: former Patient Tobacco Use Status: Never used Tobacco e-Cigarette/Vaping Use: Never Used Use of substances other than those prescribed or required for medical reasons: Yes Substance Use Type Other:: gummies Substance Use Frequency: Daily Have you been hit, kicked, punched, or otherwise hurt by someone within the past year? If so, by whom?: No Advance Directives: No Advance Directives Information Provided: Yes Advance Directives on File: No Poor oral hygiene: Yes service: No Current occupational status: retired Current occupation: left hand dominant Current occupational exposures/hazards: No Cognitive needs: No Hearing needs: No Vision needs: Yes Meds Allergies Allergy/AdvReac Type Severity Reaction Status Date / Time No Known Allergies Allergy Verified 05/21/25 07:56 Home Medications ?Medication ?Instructions ?Recorded ?Confirmed ?Last Taken ?Type atorvastatin 40 mg tablet 40 mg PO BEDTIME 07/18/23 05/14/25 07/28/24 History lisinopril 40 mg tablet 40 mg PO DAILY 07/18/23 05/14/25 07/28/24 History pantoprazole 40 mg tablet,delayed 40 mg PO BEDTIME 07/18/23 05/14/25 07/28/24 History release tramadol 50 mg tablet 50 mg PO BID pain 05/14/25 05/14/25 Unknown History Exam Height,Weight and Vital Signs: Height 5 ft 3 in Weight 77.564 kg Last Vital Signs Pulse 91 05/14/25 12:17 Resp 17 05/14/25 12:17 BP 122/61 05/14/25 12:17 Pulse Ox 96 05/14/25 12:17 O2 Del Method Room Air 05/14/25 12:17 Pertinent Lab Results Pertinent Lab Results: Laboratory Tests 11/20/24 09:30 WBC 9.1 Hgb 15.3 D Hct 46.0 D Plt Count 261 Sodium 139 Potassium 4.3 Chloride 109 H Carbon Dioxide 20 L BUN 16 Creatinine 0.76 Narrative Narrative: EKG 06/2024 Vent. Rate : 103 BPM Atrial Rate : 103 BPM P-R Int : 148 ms QRS Dur : 088 ms QT Int : 324 ms P-R-T Axes : 051 043 037 degrees QTc Int : 424 ms Sinus tachycardia with occasional Premature ventricular complexes Otherwise normal ECG No previous ECGs available ECHO 11/2023 Conclusions: - The left ventricular systolic function is normal. The calculated ejection fraction is 62% by biplane method. - No obvious valvular pathology seen on this study. Airway Mallampati Class: II TM Dist: >3cm Neck ROM: Limited Loose/Missing/Broken Teeth: Yes (edentulous) Heart: RRR Lungs: CTAB Assessment and Plan Assessment Anesthesia Assessment: Anesthesia Plan Discussed and PAT Visit Final Anesthetic Review Family History of Problems with Anesthesia: No History of Problems with Anesthesia: No Documented by User: Ciara Lee NP 05/20/25 10:09 HPI - Anesthesia Eval Consult details Narrative: 70yo M for C3-4 Ant Cerv Discectomy w/ fusion, 05/21/25 s/p rotator cuff repair 07/2024 with GA-ETT 7 - no anesthesia issues No recent illness No CP/SOB with >4 mets Hx ETOH: None x 10 years. 1 x seizure in the past r/t ETOH GERD: ppi controls DM: FBS ~ 120 PMFSH Past Medical History Medical History Habitual snoring Alcohol dependence in sustained full remission GERD (gastroesophageal reflux disease) Seizures Hyperlipidemia Hypertension Diabetes type 2, controlled Family History Family History Father Diabetes Surgical History Surgical History History of total replacement of left shoulder joint (~07/29/24) H/O colonoscopy Hx of appendectomy H/O rotator cuff surgery History of ankle surgery Social History Social History Household Members: Spouse Housing: Apartment Are you a primary intensive care medicine specialist to a significant other at home: No Do you presently have visiting nurse or other home services: No Alcohol intake: former Patient Tobacco Use Status: Never used Tobacco e-Cigarette/Vaping Use: Never Used Use of substances other than those prescribed or required for medical reasons: Yes Substance Use Type Other:: gummies Substance Use Frequency: Daily Have you been hit, kicked, punched, or otherwise hurt by someone within the past year? If so, by whom?: No Advance Directives: No Advance Directives Information Provided: Yes Advance Directives on File: No Poor oral hygiene: Yes service: No Current occupational status: retired Current occupation: left hand dominant Current occupational exposures/hazards: No Cognitive needs: No Hearing needs: No Vision needs: Yes Meds Allergies Allergy/AdvReac Type Severity Reaction Status Date / Time No Known Allergies Allergy Verified 05/21/25 07:56 Home Medications ?Medication ?Instructions ?Recorded ?Confirmed ?Last Taken ?Type atorvastatin 40 mg tablet 40 mg PO BEDTIME 07/18/23 05/14/25 07/28/24 History lisinopril 40 mg tablet 40 mg PO DAILY 07/18/23 05/14/25 07/28/24 History pantoprazole 40 mg tablet,delayed 40 mg PO BEDTIME 07/18/23 05/14/25 07/28/24 History release tramadol 50 mg tablet 50 mg PO BID pain 05/14/25 05/14/25 Unknown History Documented by User: Rosario Reddy DO 05/21/25 10:21 HPI - Anesthesia Eval Anesthesia Pre-Procedure Meds Is the patient on any of the following meds?: GLP1/DPP4 and SGLT2 Inhib PMFSH Past Medical History Medical History Habitual snoring Alcohol dependence in sustained full remission GERD (gastroesophageal reflux disease) Seizures Hyperlipidemia Hypertension Diabetes type 2, controlled Family History Family History Father Diabetes Family history of problems with anesthesia: No Surgical History Surgical History History of total replacement of left shoulder joint (~07/29/24) H/O colonoscopy Hx of appendectomy H/O rotator cuff surgery History of ankle surgery History of Problems with Anesthesia: No Social History Social History Household Members: Spouse Housing: Apartment Are you a primary intensive care medicine specialist to a significant other at home: No Do you presently have visiting nurse or other home services: No Alcohol intake: former Patient Tobacco Use Status: Never used Tobacco e-Cigarette/Vaping Use: Never Used Use of substances other than those prescribed or required for medical reasons: Yes Substance Use Type Other:: gummies Substance Use Frequency: Daily Have you been hit, kicked, punched, or otherwise hurt by someone within the past year? If so, by whom?: No Advance Directives: No Advance Directives Information Provided: Yes Advance Directives on File: No Poor oral hygiene: Yes service: No Current occupational status: retired Current occupation: left hand dominant Current occupational exposures/hazards: No Cognitive needs: No Hearing needs: No Vision needs: Yes Meds Allergies Allergy/AdvReac Type Severity Reaction Status Date / Time No Known Allergies Allergy Verified 05/21/25 07:56 Home Medications ?Medication ?Instructions ?Recorded ?Confirmed ?Last Taken ?Type atorvastatin 40 mg tablet 40 mg PO BEDTIME 07/18/23 05/14/25 07/28/24 History lisinopril 40 mg tablet 40 mg PO DAILY 07/18/23 05/14/25 07/28/24 History pantoprazole 40 mg tablet,delayed 40 mg PO BEDTIME 07/18/23 05/14/25 07/28/24 History release tramadol 50 mg tablet 50 mg PO BID pain 05/14/25 05/14/25 Unknown History Exam Exam Date and Time: 05/21/25 1020 Height,Weight and Vital Signs: Height 5 ft 3 in Weight 77.564 kg Last Vital Signs Pulse 91 05/14/25 12:17 Resp 17 05/14/25 12:17 BP 122/61 05/14/25 12:17 Pulse Ox 96 05/14/25 12:17 O2 Del Method Room Air 05/14/25 12:17 Vital Signs Pulse Rate 91 05/14/25 12:17 Respiratory Rate 17 05/14/25 12:17 Blood Pressure 122/61 05/14/25 12:17 Pulse Oximetry 96 05/14/25 12:17 Oxygen Delivery Method Room Air 05/14/25 12:17 Pulse Rate 91 05/14/25 12:17 Respiratory Rate 17 05/14/25 12:17 Blood Pressure 122/61 05/14/25 12:17 Pulse Oximetry 96 05/14/25 12:17 Oxygen Delivery Method Room Air 05/14/25 12:17 Airway Mallampati Class: II TM Dist: >3cm Neck ROM: Limited Loose/Missing/Broken Teeth: Yes (edentulous) Heart: S1S2 Assessment and Plan Assessment Anesthesia Assessment: Anesthesia Plan Discussed and Chart Reviewed Final Anesthetic Review Family History of Problems with Anesthesia: No History of Problems with Anesthesia: No NPO: Yes ASA Class: II Final Preanesthetic Review: No Changes in Pt Med Stat, Meds/Allgs Chart Reviewed, Consent Obtained/Reviewed and Anes Risks/Benef Reviewed Patient Risk: Low Procedure Risk: Intermediate Anesthetic Plan Anesthetic Plan: GA and Agree w/ Assess. and Plan Disposition: Standard PACU
--- NOTE | 2025-05-21 10:21 | MHC.SHP ---
Pre-Procedural Eval Section A - 24 Hr Update-Section A only Date of Service: 05/21/25 The patient is an INPATIENT: No Section B - Complete if H&P > 30 days Chief Complaint: Other cervical disc degeneration,spinal stenosis Details of Present Illness: left arm pain Allergies: Allergies Allergy/AdvReac Type Severity Reaction Status Date / Time No Known Allergies Allergy Verified 05/21/25 07:56 Review of Systems Sugical H&P ROS: Negative: Constitution, Cardiovascular, Respiratory, Neurological, Psychiatric, Hem-Onc, Allergic/Immunologic, Gastrointestinal, Genitourinary, Musculoskeletal, Integumentary, Endocrine and Eyes/Ears/Nose/Throat Exam Surgical H&P Exam: Normal: HEENT, Normal: Heart, Normal: Lungs, Normal: Extremities, Normal: Abdomen, Normal: Skin and Normal: Neurological (Awake, alert) Plan Diagnosis/Plan: Unchanged I have reviewed the history and physical and performed a pertinent physical examination on my patient. No changes have occurred unless specified. C3-C4 Anterior discectomy and fusion Time Spent With Patient Time: Total time managing care of this patient today ____ minutes.
--- NOTE | 2025-05-21 12:01 | W.PM.OPN ---
Operative Note Operative Note Date of Service: 05/21/25 Narrative: Preoperative Diagnosis: Left cervical radiculopathy due to foraminal stenosis Procedure: C3-C4 Anterior discectomy, arthrodesis and implantation cage ; C3-C4 anterior instrumentation ; local autograft; microscope Informed Consent was obtained for this operation. I have explained the nature, purpose and benefits of the operation. I have discussed the risks and benefit of the operation including possible complications or adverse events with patient/family. Alternative(s) were discussed with the patient with their relative benefits and risks as well as the consequences of not accepting the operation were included in obtaining consent. Surgeon: DANIELE CROOKS MD, PHD Procedure Assisted By: clinton Ruby Description of Procedure: This from left with a neck pain into his shoulder. An MRI shows severe a left C4 foraminal stenosis. The patient offered an anterior diskectomy and fusion C3-C4. The procedure complications were explained. The patient was consented. The patient was brought to the operating room and endotracheally intubated. The patient was put in supine position with slight extension of the neck. Prep and drape was done followed by timeout. A mid cervical incision was made followed by opening of the platysma. The prevertebral fascia was reached following the natural planes while the physician assistant professor of german provided manual retraction. The prevertebral fascia was opened to expose the disc space. A spinal needle was placed in the disk space to confirm the correct level with xray. The longus colli muscles were released bilaterally and a self retaining retractor was inserted. Two [place] pins were placed in the C3 and C4 vertebral bodies and distraction was give over the interspace. The discectomy was completed toward the posterior annulus of the disc. The microscope was brought in. The remainder of the discectomy was completed. The posterior ligament was opened and resected to expose the underlying dura. Osteophytes were resected from the body of C3 and C4 and saved for autograft. Bilateral foraminotomies were done. The endplates were prepared after which a 7 mm cage filled with autograft was inserted into the disc space. A separate attached plate was locked down with 2 x 14 mm screws as anterior instrumentation. Final x-rays in AP and lateral projection showed a satisfactory position of the implant. The physician assistant professor of german took over. The [place] pin was removed. Hemostasis was done. He closed the incision in 2 layers with a 3-0 Vicryl. Steri-Strips used to approximate incision. An OpSite with Tegaderm was used to cover the incision. All sponge and needle counts were correct. Patient was extubated and transported in stable is to recovery room. Anesthesia: General Estimated Blood Loss (ml): 15 Duration of Surgery: 60 minutes Postoperative Plan: Discharge home Complications: None
[2025-05-21 12:17] VITALS: BP 139/70; PULSE 92; RESP 14; TEMP 36.2; O2SAT 96
[2025-05-21 12:20] VITALS: BP 125/83; PULSE 93; RESP 16; O2SAT 95
[2025-05-21 12:25] VITALS: BP 135/72; PULSE 94; RESP 12; O2SAT 94
[2025-05-21 12:30] VITALS: BP 145/66; PULSE 89; RESP 17; O2SAT 95
[2025-05-21 12:43] VITALS: BP 137/73; PULSE 85; RESP 13; TEMP 36.1; O2SAT 95
== END 2025-05-21 13:12 | disposition home or self-care (01) ==
LOC: HO.SSS 07:44
PROVIDERS: PCP Nurse Practitioner Family; Visit Provider Neurological Surgery
PROC: (CPT 22551; principal; 2025-05-21 11:00)
DX: M50.11 Cervical disc disorder with radiculopathy, high cervical region (principal); M48.02 Spinal stenosis, cervical region; K21.9 Gastro-esophageal reflux disease without esophagitis; I10 Essential (primary) hypertension; E78.5 Hyperlipidemia, unspecified; E11.9 Type 2 diabetes mellitus without complications; Z79.899 Other long term (current) drug therapy; Z98.890 Other specified postprocedural states
CPT/HCPCS: 22551; 22853; 20936; 22845; 82947; C1713; J0131; J0690; J1100; J1885; J2405; J2704; J3010

== ENCOUNTER → 2025-05-21 07:43 | Outpatient (BNV) | payer MEDICARE, MEDICAID, SELFPAY | PROVIDERS: PCP Nurse Practitioner Family; Visit Provider Neurological Surgery | DX: M48.02 Spinal stenosis, cervical region (principal) | CPT/HCPCS: 20936; 22551; 22845; 22853; 99499 ==

== ENCOUNTER 2025-06-02 15:02 | Outpatient (AMB) | payer MEDICARE, MEDICAID, SELFPAY ==
--- NOTE | 2025-06-02 15:04 | HO.SPINEOV ---
Intake Visit Reasons: incision check Intake Note: Mr. Ansari is here today to have his incision checked. Roll Over Press Operator Required: No Allergies No Known Allergies Allergy (Verified 05/21/25 07:56) Assessment & Plan Assessment & Plan (1) S/P cervical spinal fusion: Code(s): Z98.1 - Arthrodesis status Category: Surgical Plan Procedure: C3-4 ACDF Jose is a pleasant 70-year-old male who comes in today as an acute add on visit after calling the clinic reporting that he is having fairly significant pain on back of the neck radiating to the top of his shoulders. He underwent C3-[address] Murray on 05/21/25 for left sided cervical radiculopathy. Today, he reports that the pain has been quite severe, keeping him up at night in significantly restricting his activities of daily living. When describing the pain he states it feels like a cramping spasm type pain in his bilateral shoulders and posterior neck. He has been attempting to utilize his oxycodone prescription, however reports that he is out of this medication. He is also out of his tramadol medication as he states that they returned the prescription to the pharmacy after being prescribed oxycodone. He denies any new numbness/tingling/burning. He feels that his left upper extremity symptoms have been resolved since the surgery. No new neurological deficits. The patient ambulates well and rises from a seated position without difficulty. He gets up onto the examination table without much issue. His gait is non spastic and nonantalgic. His anterior incision site is closed and well healing, with only very slight edema no erythema or drainage. I am going to send in a course of hydromorphone for Jose to try and help get his current pain under control as he is clearly suffering with the current pain he is in. I believe this is likely related to a course of postoperative inflammation, and potentially a spasm of the trapezius muscle as a result of the implant stretching out the tendon insertion points. I will also send him in a Medrol Dosepak to help reduce some of the inflammation. Daljit Murray MD,PhD [facility] Medications: New hydromorphone Partial Fill upon patient request. 2 mg PO Q4-6H PRN 30 tabs 0RF pain methylprednisolone (Medrol (Quinton)) PO PER PKG DIR 21 ea 0RF Discontinued methylprednisolone medrol dose pack; take as directed on package Discontinued Reason: Doctor's Order 4 mg PO DAILY 21 ea 0RF oxycodone Partial Fill upon patient request. Discontinued Reason: Doctor's Order 5 mg PO Q8H PRN 20 tabs 0RF pain Coding Level of Care Code Global (07867) Diagnoses S/P cervical spinal fusion Z98.1
--- OUTSIDE RECORDS SUMMARY | 2025-06-02 20:17 | XMS_ITS | Clinical Summary ---
Author Organization [employer] Address [address] [place] [address] [address] [place] [address] Care Team Providers Care Research Specialist Name Role Phone Constance Zamarripa MD Primary Care Provider [phone] Allergies No known active allergies Medications Januvia [...] tabletIndications: Type 2 diabetes mellitus without complications (HCC) TAKE 1 TABLET BY MOUTH EVERY DAY IN THE MORNING 90 tablet 3 3 Active atorvastatin (Lipitor) 40 MG tabletIndications: Type 2 diabetes mellitus without complications (HCC) TAKE 1 TABLET BY MOUTH EVERY DAY 90 tablet 3 4 Active metFORMIN (Glucophage) 1000 MG tabletIndications: Type 2 diabetes mellitus without complications (HCC) TAKE 1 TABLET BY MOUTH TWICE A [...] BY MOUTH EVERY MORNING 10 tablet 11 5 Active Active Problems Problem Noted Date [...] Screening 12/07/2023 12/06/2022 COVID-19 Vaccine ( season) 2025 08/29/2021, 02/05/2021, 01/12/2021 Influenza Vaccine [...] % Blood Venous blood specimen / Unknown [facility] Provider LAB BLOOD ORDERABLES Alka l Result from Last 3 Months or Most Recently Relevant to Health Maintenance Insurance [place] [id number] [facility] STANDARD Care Teams Research Specialist Relationship Specialty Start Date End Date Constance Zamarripa MD [address] [place] [address] PCP - General Family Medicine 09/14/22
--- OUTSIDE RECORDS SUMMARY | 2025-06-02 20:17 | XMS_ITS | Patient Health Record ---
Author Organization [facility] Address [address] [place] [address] Care Team Providers Care Neuropsychologist Name Role Phone Sharath JONES, [facility] Primary Care Provider Adryan Oshea Jr Reason For Referral No Information Medications Medication SIG (Take, Route, Frequency, Duration) Notes Start Date End Date Status Verapamil HCl ER 180 MG 1 tablet Orally Once a day Active Colyte with Flavor Packs 240 GM As directed Orally Over the specified time.; Duration: 1 day(s) 06/23/2015 Active Lisinopril 40 MG [...] Problem Status W/U Status Risk Notes Problem Colon cancer screening ([id number]) Colon cancer screening (Z12.11) Active confirmed Plan Of Treatment Future Test Test Name Order Date COLONOSCOPY 06/23/2015 Insurance Providers Payer Name Payer Address Payer Phone Subscriber Number Group Number Insured Name Patient Relationship to Insured Coverage Start Date Coverage End Date [facility] [address] [address] [place], [place] [id number] TRIPP GALE Self - patient is the insured MEDICAID OF [facility] [address] [place] [address] [phone] [id number] TRIPP GALE Self - patient is the insured Medical (General) History Medical History History ICD Code hypertension Denies [place],DM,CVA,Lung disease,renal dise ase Surgical History Surgery Date(Month/Year) rotator cuff tear repair 2012 leg surgery 2012
== END 2025-06-02 16:08 | disposition home or self-care (01) ==
LOC: HO.HNS 15:03
PROVIDERS: PCP Nurse Practitioner Family; Visit Provider Physician Assistant
DX: Z98.1 Arthrodesis status (principal)
CPT/HCPCS: 99024

== ENCOUNTER → 2025-06-02 15:02 | Outpatient (BNVA) | payer MEDICARE, MEDICAID, SELFPAY | PROVIDERS: PCP Nurse Practitioner Family; Visit Provider Physician Assistant | DX: Z48.01 Encounter for change or removal of surgical wound dressing (principal); Z98.1 Arthrodesis status; Z98.890 Other specified postprocedural states; Z79.891 Long term (current) use of opiate analgesic | CPT/HCPCS: 99212 ==

== ENCOUNTER 2025-06-10 14:39 | Outpatient (REF) | payer MEDICARE, MEDICAID, SELFPAY ==
--- NOTE | ~2025-06-10 | XR_ITS ---
EXAMINATION: XR CERVICAL SPINE CLINICAL INFORMATION: Z98.1 - Arthrodesis status COMPARISON: February 06, 2025. TECHNIQUE: Lateral views in neutral position, flexion and extension position. AP view. FINDINGS: Craniocervical junction is intact. There is an anterior intervertebral disc spacer placement anchor at C3-4 with normal alignment in neutral position which maintains during flexion and extension. Mitchell deformity apex at C5-6. Syndesmophyte formation and marginal osteophyte formation C5-6 with decreased intervertebral disc height and subchondral cyst formation and endplate sclerosis. Craniocervical junction is intact. No lytic or blastic lesions. XR/XR cervical spine 4V IMPRESSION: Status post arthrodesis at C3-4 without gross instability. 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 Electronically signed by: Adolfo Sultana MD 06/10/2025 03:31 PM EDT
== END 2025-06-10 14:40 | disposition home or self-care (01) ==
LOC: HO.HOSX 14:39
PROVIDERS: PCP Nurse Practitioner Family; Visit Provider Physician Assistant
DX: Z47.89 Encounter for other orthopedic aftercare (principal); Z98.1 Arthrodesis status
CPT/HCPCS: 72050; 99212

== ENCOUNTER 2025-06-10 14:39 | Outpatient (AMB) | payer MEDICARE, MEDICAID, SELFPAY ==
--- NOTE | 2025-06-10 14:58 | A.SPINEOV_ITS ---
Intake Visit Reasons: sx on 05/21 discomfort Intake Note: Mr. Ansari is here today c/o discomfort after Surgery. Tearer Press Clipping Required: No Allergies No Known Allergies Allergy (Verified 05/21/25 07:56) Assessment & Plan Assessment & Plan (1) S/P cervical spinal fusion: Code(s): Z98.1 - Arthrodesis status Category: Surgical Plan Procedure: C3-4 ACDF Jose comes in today for another follow-up appointment after being seen last week in evaluated as an acute add on visit for significant pain on back of the neck radiating to the top of his shoulders. He is accompanied by his who helps provide some of his history. They report that the pain medication that I put him on last week helped him significantly. He states that he is the 1st time since his surgery that he was out of pain. His also attest to this. She reports that his attitude and/or behavior has been very negative as a result of his pain, but he seemed to actually be somewhat comfortable and happy over the course of the last week or so. Unfortunately he has ran out of the medication, so they came in together today to request a subsequent prescription and update us regarding his current status. No new neurological deficits. The patient ambulates well and rises from a seated position without difficulty. His anterior incision site is closed and well healing. I will send in a refill for the hydromorphone medication for Jose, as it seems to have helped him quite a bit. He understands that we will not be able to continue this much longer as he is nearing almost 1 month out from surgery. Daljit Murray MD,PhD [facility] Orders: Orders XR cervical spine 4V Today Z98.1 - Arthrodesis status Medications: Refilled hydromorphone Partial Fill upon patient request. 2 mg PO Q4-6H PRN 30 tabs 0RF pain Coding Level of Care Code Global (27204) Diagnoses S/P cervical spinal fusion Z98.1
--- OUTSIDE RECORDS SUMMARY | 2025-06-10 19:03 | XMS_ITS | Patient Health Record ---
Author Organization [facility] Address [address] [place] [address] Care Team Providers Care Overnight Houseperson Name Role Phone Sharath JONES, [facility] Primary Care Provider Adryan Oshea Jr Reason [...] Status Risk Notes Problem Colon cancer screening ([id number]) Colon cancer screening (Z12.11) Active confirmed Plan Of Treatment Future Test Test Name Order Date COLONOSCOPY 06/23/2015 Insurance Providers Payer Name Payer Address Payer Phone Subscriber Number Group Number Insured Name Patient Relationship to Insured Coverage Start Date Coverage End Date [facility] [address] [address] [place], [place] [id number] TRIPP GALE Self - patient is the insured MEDICAID OF [facility] [address] [place] [address] [phone] [id number] TRIPP GALE Self - patient is the insured Medical (General) History Medical History History ICD Code hypertension Denies [place],DM,CVA,Lung disease,renal dise ase Surgical History Surgery Date(Month/Year) rotator cuff tear repair 2012 leg surgery 2012
--- OUTSIDE RECORDS SUMMARY | 2025-06-10 19:03 | XMS_ITS | Clinical Summary ---
Author Organization [email or web address] Address [address] [place] [address] [address] [place] [address] Care Team Providers Care Sewing Machines Salesperson Name Role Phone Constance Zamarripa MD Primary Care Provider [phone] Allergies No known active allergies Medications Januvia [...] % Blood Venous blood specimen / Unknown [facility] Provider LAB BLOOD ORDERABLES Alka l Result from Last 3 Months or Most Recently Relevant to Health Maintenance Insurance [place] [id number] [facility] STANDARD Care Teams Sewing Machines Salesperson Relationship Specialty Start Date End Date Constance Zamarripa MD [address] [place] [address] PCP - General Family Medicine 09/14/22
== END 2025-06-10 15:30 | disposition home or self-care (01) ==
LOC: HO.HNS 14:40
PROVIDERS: PCP Nurse Practitioner Family; Visit Provider Physician Assistant
DX: Z98.1 Arthrodesis status (principal)
CPT/HCPCS: 99024

== ENCOUNTER → 2025-06-10 15:17 | Outpatient (BNV) | payer MEDICARE, MEDICAID, SELFPAY | PROVIDERS: PCP Nurse Practitioner Family; Visit Provider Radiology Diagnostic Radiology | DX: M47.812 Spondylosis without myelopathy or radiculopathy, cervical region (principal); M95.3 Acquired deformity of neck; Z98.1 Arthrodesis status | CPT/HCPCS: 72050 ==

== ENCOUNTER 2025-08-05 13:21 | Outpatient (AMB) | payer MEDICARE, MEDICAID, SELFPAY ==
--- NOTE | 2025-08-05 13:24 | A.OFFPC_ITS ---
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 Required: No Accompanied by: Self / Same As Patient Allergies No Known Allergies Allergy (Verified 08/05/25 13:25) Medication List - Last Reconciled 08/05/25 by Alexandre Mccabe, [facility] amlodipine 10 mg PO QAM atorvastatin 40 mg PO BEDTIME baclofen 10 mg PO BID 20 days blood sugar diagnostic ([employer] Ultra Test strips) USE TO TEST BLOOD SUGAR ONCE A DAY blood-glucose meter ([employer] Ultra2 Meter) As directed blood-glucose meter As directed docusate sodium (Colace) 100 mg PO BID empagliflozin (Jardiance) 25 mg PO DAILY lancets ([employer] Delica Plus Lancet) Test blood sugar once a day lancets ([employer] Delica Plus Lancet) Check blood sugar once daily as directed lancing device with lancets ([employer] Delica Plus Lancing Device kit) As directed lisinopril 40 mg PO DAILY metformin 1,000 mg PO BID 90 days methylprednisolone (Medrol (Quinton)) PO PER PKG DIR Mounjaro (tirzepatide) 2.5 mg (0.5 mL) subcut QWEEK NS pantoprazole 40 mg PO BEDTIME tramadol 50 mg PO BID 20 days Tobacco use date assessed: 08/05/25 Fall risk assessment: No Falls in past year Last assessed Fall Risk: 08/05/25 Dental Screening Dental Screen Date: 08/05/25 Did you have a dental visit in the last 12 months?: Yes Did you have a dental problem in the last 6 months where you did not have access to dental care?: No Was dental information given to patient?: Patient has dentist HPI 4m follow HPI Details Chief Complaint The patient presents for a follow-up of diabetes and new onset of neck discomfort. History of Present Illness The patient is a 70 year old male presenting for a follow-up for diabetes. His most recent A1c is 7.0 while on Jardiance and Mounjaro 2.5mg. He is reluctant to increase the dose of Mounjaro as he became very ill during a previous attempt. The patient denies any symptoms of neuropathy and is aware of the need to monitor his diet. The patient also reports cervical neck discomfort, which he has a history of along with shoulder pain. He underwent a C3-C4 anterior discectomy, arthrodesis, and implantation of a cage in May, which went well with no residual symptoms. Today, he reports discomfort, stiffness, and a burning sensation in his right medial trapezius. His blood pressure remains stable. denies any upper extrem radiculopathy. NOTE: because he has been on tramadol for months now, i will have him sign a narcotic contract with me. Pt did not want a copy, and i did go over the major components of this contract, including random drug tests. Social History Health Maintenance The patient was informed about his due vaccinations and advised that he can receive them at his pharmacy. Review of Systems - Neurological: Denies neuropathy. - Musculoskeletal: Reports cervical neck discomfort, shoulder pain, and discomfort, stiffness, and burning in the right medial trapezius. -denies any cp, sob, fevers, chills, ZAMBRANO Physical Exam General: Cooperative, healthy appearing, comfortable, no acute distress and well developed Orientation: Patient oriented x3 Limitations: No limitations Head: Normal to inspection Ears: Hearing grossly normal bilaterally Nose: Normal external nose present Face and sinus: Normal facial exam Eyes: Appearance normal, both eyes and all related structures Neck: Normal visual inspection and Yes full ROM without radiculopathy Respiratory: Normal respiratory effort and able to speak in complete sentences. Clear to auscultation bilaterally Cardiovascular: Regular rate and rhythm. Normal S1 and S2 GI: Normal to inspection. Soft to palpation and nontender Skin: No rashes or lesions noted Neuro: Patient oriented x3, positive sensation, use of monofilament, and able to feel vibration with the 128 hertz tuning fork Extremities: Normal to inspection, no pain exacerbated with trap/cervical neck palpation or head ROM Results - Labs: Hemoglobin A1c is 7.0%. Plan 1. Diabetes Mellitus The patient's A1c is 7.0 on Jardiance and Mounjaro 2.5 mg. He is reluctant to in crease the Mounjaro dose due to becoming ill on a prior attempt. The plan is to continue the current medication regimen and monitor his A1c. The patient was encouraged to adhere to his diet and advised to schedule his yearly eye exam. 2. Cervicalgia The patient reports discomfort, stiffness, and burning in his right medial trapezius, despite a history of a successful C3-C4 anterior discectomy and arthrodesis. A muscle relaxer will be prescribed to alleviate his symptoms. Discussion Notes I reviewed the patient's A1c of 7.0 and discussed his current diabetes regimen of Jardiance and Mounjaro 2.5 mg. Although an increase in Mounjaro could be beneficial, we will hold the current dose due to his report of becoming very ill on a previous attempt to titrate up. I encouraged him to watch his diet and reminded him about the necessity of a yearly eye exam. Regarding his neck discomfort, stiffness, and burning in the right trapezius, I will prescribe a course of muscle relaxers. I also advised him on his due vaccinations, which he can get at a pharmacy. The patient voiced understanding of the plan. Patient Instructions - Continue taking your Jardiance and Phuong njaro as prescribed. - Be sure to watch your diet to help con trol your blood sugar. - Please schedule your yearly eye exam i n the near future. - I am prescribing a muscle relaxer for your neck and shoulder discomfort; please take it as directed. - You can get your recommended vaccinati ons at your local pharmacy. [facility] Medical History Habitual snoring Alcohol dependence in sustained full remission GERD (gastroesophageal reflux disease) Seizures Hyperlipidemia Hypertension Diabetes type 2, controlled Surgical History History of total replacement of left shoulder joint (~07/29/24) H/O colonoscopy Hx of appendectomy H/O rotator cuff surgery History of ankle surgery Family History Father Diabetes Social History Household Members: Spouse Housing: Apartment Are you a primary healthcare recruiter to a significant other at home: No Do you presently have visiting nurse or other home services: No Alcohol intake: former Patient Tobacco Use Status: Never used Tobacco e-Cigarette/Vaping Use: Never Used service: No Current occupational status: retired Current 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 1. Little interest or pleasure in doing things: not at all 2. Feeling down, depressed, or hopeless: not at all 3. Trouble falling or staying asleep, or sleeping too much: not at all 4. Feeling tired or having little energy: not at all 5. Poor appetite or overeating: not at all 6. Feeling bad about yourself - or that you are a failure or have let yourself or your family down: not at all 7. Trouble concentrating on things, such as reading the newspaper or watching television: not at all 8. Moving or speaking so slowly that other people could have noticed. Or the opposite - being so fidgety or restless that you have been moving around a lot more than usual: not at all 9. Thoughts that you would be better off or of hurting yourself in some way: not at all Total score: 0 Depression Screening Interpretation: Negative Depression Screening Done: Yes 31880 - PHQ-9 Billing: Yes Source: Developed by Drs. Jason Donovan, Cinthia Mclean, Lester Hunt and colleagues, with an educational phyllis from [employer]. Thrive Questionnaire Date Thrive assessed: 08/18/24 I am a: Patient What is your living situation today?: I choose not to answer this question Within the past 12 months, did the food you bought not last and you didn't have the money to get more?: I choose not to answer this question Within the past 12 months, did you worry whether your food would run out before you got money to buy more?: I choose not to answer this question Do you have trouble paying for medicines?: I choose not to answer this question Do you have trouble getting transportation to medical appointments?: I choose not to answer this question Do you have trouble paying your heating and electricity bill?: I choose not to answer this question Do you have trouble taking care of your child, family member or friend?: I choose not to answer this question Do you have trouble with day-to-day activities such as bathing, preparing meals, shopping, managing finances, etc.?: I choose not to answer this question Are you currently unemployed and looking for a job?: I choose not to answer this question Are you interested in more education?: I choose not to answer this question Currently or been in a relationship where the following occur: I choose not to answer THRIVE Score: 0 ADITI-7 AMB Questionnaire ADITI-7 Date ADITI - 7 assessed: 08/05/25 Feeling nervous, anxious, or on edge: 0 = Not at all Not being able to stop or control worryin = Not at all Worrying too much about different things: 0 = Not at all Trouble relaxin = Not at all Being so restless that it is hard to sit still: 0 = Not at all Becoming easily annoyed or irritable: 0 = Not at all Feeling afraid as if something awful might happen: 0 = Not at all Total ADITI-7 score (0-4 normal; 5-9 mild; 10-14 moderate; 15-21 severe): 0 Source: Developed by Drs. Jason Donovan, Cinthia Mclean, Lester Hunt and colleagues, with an educational phyllis from [employer]. ADITI-7 Assessment Billing ADITI-7 Assessment Tool: ADITI-7 Assessment 04601 Physical exam (Primary Care) Vital Signs: Last Vital Signs Pulse 98 08/05/25 13:42 Resp 18 08/05/25 13:29 BP 130/68 08/05/25 13:42 Pulse Ox 97 08/05/25 13:29 Oxygen Delivery Method Room Air 08/05/25 13:29 Tobacco/Smoking Status: Tobacco use Status Tobacco use date assessed 08/05/25 08/05/25 13:27 Patient Tobacco Use Status Never used Tobacco 08/05/25 13:27 e-Cigarette/Vaping Use Never Used 08/05/25 13:27 PHQ-9: PHQ-9 Score PHQ-9: Total score 0 08/05/25 13:49 Depression Screening Interpretation: Negative Thrive Assessment: Date of Thrive Assessment Date Thrive assessed 08/18/24 08/05/25 13:27 Currently or been in a relationship where the following occur: I choose not to answer Results AMB Hemoglobin A1c AMB Hemoglobin A1c 7.0 % Last Edit by Summer Stark MA on 08/05/25 1 3:41 Results Reviewed Results Reviewed: Laboratory Last Values Hgb A1c (Clinic) 7.0 % (4.0-6.0) H 08/05/25 13:38 Coding Level of Care Code Est Pt Level 4 (09861) Diagnoses Diabetes type 2, controlled E11.9 Chronic neck pain M54.2; G89.29 Pain medication agreement completed Z02.89 Additional Codes ADITI-7 Assessment Billing - ADITI-7 Assessment Tool: ADITI-7 Assessment 17724 ([id number]) PHQ-9 - 26973 - PHQ-9 Billing: Yes ([id number]) Assessment & Plan Assessment & Plan (1) Diabetes type 2, controlled: Code(s): E11.9 - Type 2 diabetes mellitus without complications Category: Medical (2) Chronic neck pain: Code(s): M54.2 - Cervicalgia; G89.29 - Other chronic pain Category: Medical (3) Pain medication agreement completed: Code(s): Z02.89 - Encounter for other administrative examinations Category: Medical Plan . Orders: Orders AMB Hemoglobin A1c Today E11.9 - Type 2 diabetes mellitus without complications Referrals Ophthalmology Referral E11.9 - Type 2 diabetes mellitus without complications Medications: New baclofen 10 mg PO BID 40 tabs 0RF 20 days Discontinued hydromorphone Partial Fill upon patient request. Discontinued Reason: Doctor's Order 2 mg PO Q8H PRN 14 tabs 0RF pain
--- OUTSIDE RECORDS SUMMARY | 2025-08-05 13:24 | XMS_ITS | Clinical Summary ---
Author Organization [employer] Address [address] [place] [address] [address] [place] [address] Care Team Providers Care Aircraft Restorer Name Role Phone Constance Zamarripa MD Primary Care Provider [phone] Allergies No known active allergies Medications Januvia [...] % Blood Venous blood specimen / Unknown [facility] Provider LAB BLOOD ORDERABLES Alka l Result from Last 3 Months or Most Recently Relevant to Health Maintenance Insurance [place] [id number] [facility] STANDARD Care Teams Aircraft Restorer Relationship Specialty Start Date End Date Constance Zamarripa MD [address] [place] [address] PCP - General Family Medicine 09/14/22
--- OUTSIDE RECORDS SUMMARY | 2025-08-05 13:24 | XMS_ITS | Patient Health Record ---
Author Organization [facility] Address [address] [place] [address] Care Team Providers Care Marketing Analyst Name Role Phone Sharath JONES, [facility] Provider Adryan Oshea Jr Reason For Referral No Information Medications Medication SIG (Take, Route, Frequency, Duration) Notes Start Date End Date Status Verapamil HCl ER 180 MG Tablet Extended Release 1 tablet Orally Once a day Active Colyte with Flavor Packs 240 GM Solution Reconstituted As directed Orally Over the specified time.; Duration: 1 day(s) 06/23/2015 Active Lisinopril 40 MG Tablet 2 tablet Orally Once a day Active Atenolol 100 MG Tablet 1 tablet Orally O nce a day Active Social History Social History Additional Details Category Social Info Options Details Miscellaneous: Marital status: Occupation: retired Problems Problem Type SNOMED Code ICD Code Onset Dates Problem Status W/U Status Risk Notes Problem Colon cancer screening (110421845) Colon cancer screening (Z12.11) Active confirmed Plan Of Treatment Future Test Test Name Order Date COLONOSCOPY 06/23/2015 Insurance Providers Payer Name Payer Address Payer Phone Subscriber Number Group Number Insured Name Patient Relationship to Insured Coverage Start Date Coverage End Date [facility] [employer] [facility] [address] [address] [place], [place] [id number] [employer] Self - patient is the insured MEDICAID OF [employer] [address] [place] [address] [id number] [employer] Self - patient is the insured Medical (General) History Medical History History ICD Code hypertension Denies [place],DM,CVA,Lung disease,renal dise ase Surgical History Surgery Date(Month/Year) rotator cuff tear repair 2012 leg surgery 2012
[2025-08-05 13:29] VITALS: BP 140/72; PULSE 120; RESP 18; O2SAT 97
[2025-08-05 13:42] VITALS: BP 130/68; PULSE 98
== END 2025-08-05 14:22 | disposition home or self-care (01) ==
LOC: HO.HMCC 13:22
PROVIDERS: PCP Nurse Practitioner Family; Visit Provider Nurse Practitioner Family
DX: E11.9 Type 2 diabetes mellitus without complications (principal); M54.2 Cervicalgia; G89.29 Other chronic pain; Z02.89 Encounter for other administrative examinations

== ENCOUNTER → 2025-08-05 13:21 | Outpatient (BNVA) | payer MEDICARE, MEDICAID, SELFPAY | PROVIDERS: PCP Nurse Practitioner Family; Visit Provider Nurse Practitioner Family | DX: E11.9 Type 2 diabetes mellitus without complications (principal); G89.29 Other chronic pain; M54.2 Cervicalgia; Z79.85 Long-term (current) use of injectable non-insulin antidiabetic drugs; Z13.31 Encounter for screening for depression; Z13.39 Encounter for screening examination for other mental health and behavioral disorders; Z87.39 Personal history of other diseases of the musculoskeletal system and connective tissue; Z98.890 Other specified postprocedural states; Z02.89 Encounter for other administrative examinations; Z51.81 Encounter for therapeutic drug level monitoring | CPT/HCPCS: 83036; 96127; 99212 ==